=== PATIENT | male | born 1960 | race Caucasian/White ===

== ENCOUNTER 2019-11-21 19:02 | Emergency (ER) | payer BC ==
[~2019-11-21] VITALS: Ht 193 cm; Wt 127.0 kg
--- OUTSIDE RECORDS SUMMARY | ~2019-11-21 | XMS | Clinical Summary ---
Demographics + + + | Address | [address] | | | [place] [address] | + + + | Home Phone | | + + + | Preferred Language | Unknown | + + + | Marital Status | | + + + | Church Affiliation | [employer] | + + + | Race | White | + + + | Ethnic Group | Not or | + + + Author + + + | Author | [facility] | + + + | Organization | [facility] | + + + | Address | Unknown | + + + | Phone | Unavailable | + + + Support + + + + + | Name | Relationship | Address | Phone | + + + + + | Rabia Aguilar | JAMAR | [address] | | | | | [place] | | | | | [phone] | | + + + + + Care Team Providers + +------+ + | Care Branch Store Manager Name | Role | Phone | + +------+ + | Uday Parra MD | PCP | | + +------+ + Source Comments [facility] is fully live on both [facility] Ambulatory and [facility] InPatient[facility] Allergies No Known Allergies Medications + + + +---------+------+------+-------+ | Medication | Sig | Dispensed | Refills | Star | End | Statu | | | | | | t | Date | s | | | | | | Date | | | + + + +---------+------+------+-------+ | hydrALAZINE 50 mg | Take 100 mg by mouth | | 0 | | | Activ | | oral tablet | three times daily. | | | | | e | + + + +---------+------+------+-------+ | atorvastatin 10 mg | Take 10 mg by mouth | | 0 | | | Activ | | oral tablet | once daily. | | | | | e | + + + +---------+------+------+-------+ | aspirin EC 81 mg | Take 81 mg by mouth | | 0 | | | Activ | | oral tablet,delayed | once daily. | | | | | e | | release (DR/EC) | | | | | | | + + + +---------+------+------+-------+ | valsartan 160 mg | Take 320 mg by mouth | | 0 | | | Activ | | oral tablet | once daily. | | | | | e | + + + +---------+------+------+-------+ | spironolactone 50 | Take 50 mg by mouth | | 0 | | | Activ | | mg oral tablet | once daily. | | | | | e | + + + +---------+------+------+-------+ | metoprolol | Take 50 mg by mouth | | 0 | | | Activ | | succinate 50 mg oral | once daily. | | | | | e | | tablet extended | | | | | | | | release 24 hr | | | | | | | + + + +---------+------+------+-------+ | fenofibrate 145 mg | Take 48 mg by mouth | | 0 | | | Activ | | oral tablet | once daily. | | | | | e | + + + +---------+------+------+-------+ | albuterol 90 | Inhale 1-2 puffs | | 0 | | | Activ | | mcg/actuation | every four hours as | | | | | e | | inhalation HFA | needed. | | | | | | | aerosol inhaler | | | | | | | + + + +---------+------+------+-------+ | nitroglycerin 0.4 | Place 0.4 mg under | | 0 | | | Activ | | mg sublingual | tongue every five | | | | | e | | tablet, sublingual | minutes as needed | | | | | | | | for chest pain. | | | | | | | | Place under tongue | | | | | | | | and allow to | | | | | | | | dissolve. | | | | | | | | Administer every 5 | | | | | | | | minutes, max of 3 | | | | | | | | doses in 15 minutes. | | | | | | + + + +---------+------+------+-------+ | mometasone 220 mcg | Inhale 2 puffs two | | 0 | | | Activ | | (14 doses) | times daily. | | | | | e | | inhalation aerosol | | | | | | | | powdr breath | | | | | | | | activated | | | | | | | + + + +---------+------+------+-------+ | amLODIPine 10 mg | Take 10 mg by mouth | | 0 | | | Activ | | oral tablet | once daily. | | | | | e | + + + +---------+------+------+-------+ | | Take 25 mg by mouth | | 0 | | | Activ | | hydrochlorothiazide | once daily. | | | | | e | | 25 mg oral tablet | | | | | | | + + + +---------+------+------+-------+ | acetaminophen 325 | Take 1-2 tablets by | | 0 | 09/0 | | Activ | | mg oral | mouth every four | | | 2/20 | | e | | tabletIndications: | hours as needed. | | | 15 | | | | fever, headache | Indications: FEVER, | | | | | | | disorder | HEADACHE DISORDER | | | | | | + + + +---------+------+------+-------+ | predniSONE 20 mg | Take 2 tablets by | | 0 | 03/2 | | Activ | | oral tablet | mouth once daily. | | | 3/20 | | e | | | | | | 16 | | | + + + +---------+------+------+-------+ Active Problems + + + | Problem | Noted Date | + + + | Coronary artery disease s/p stenting 2014 | 01/01/2015 | + + + | Hyperlipidemia | 01/01/2015 | + + + | Essential hypertension | 01/01/2015 | + + + | CKD (chronic kidney disease), stage III | 01/01/2015 | + + + | Mild persistent asthma | 01/01/2015 | + + + | Pleural effusion | 12/31/2014 | + + + Resolved Problems + + + + | Problem | Noted | Resolved | | | Date | Date | + + + + | Shortness of breath | 01/01/20 | | | | 15 | 5 | + + + + Social History + +-------+ +--------+------+ | Tobacco Use | Types | Packs/Day | Years | Date | | | | | Used | | + +-------+ +--------+------+ | Former Smoker | | | | | + +-------+ +--------+------+ + + +---------+ + | Alcohol Use | Drinks/Week | oz/Week | Comments | + + +---------+ + | No | | | | + + +---------+ + + + + | Sex Assigned at | Date Recorded | | | | + + + | Not on file | | + + + + + + + | Job Start Date | Occupation | Industry | + + + + | Not on file | Not on file | Not on file | + + + + + + + + | Travel History | Travel Start | Travel End | + + + + + + | No recent travel history available. | + + Last Filed Vital Signs + + + + + | Vital Sign | Reading | Time Taken | Comments | + + + + + | Blood Pressure | 138/64 | 07/26/2015 8:28 AM | | | | | PDT | | + + + + + | Pulse | 79 | 07/26/2015 8:28 AM | | | | | PDT | | + + + + + | Temperature | 36.4 C (97.6 F) | 01/08/2015 10:31 AM | | | | | PDT | | + + + + + | Respiratory Rate | 18 | 01/02/2015 2:40 PM | | | | | PDT | | + + + + + | Oxygen Saturation | 96% | 01/08/2015 10:31 AM | | | | | PDT | | + + + + + | Inhaled Oxygen | - | - | | | Concentration | | | | + + + + + | Weight | 137.9 kg (304 lb) | 07/26/2015 8:28 AM | | | | | PDT | | + + + + + | Height | 191 cm (6' 3.2") | 07/26/2015 8:28 AM | | | | | PDT | | + + + + + | Body Mass Index | 37.8 | 07/26/2015 8:28 AM | | | | | PDT | | + + + + + Plan of Treatment + + + + + | Health Maintenance | Due Date | Last Done | Comments | + + + + + | Pneumococcal | | | | | vaccination (1 of 3 | 7 | | | | - PCV13) | | | | + + + + + | Influenza (Flu) | | | | | vaccination (#1) | 9 | | | + + + + + Results Not on filefrom Last 3 Months Insurance + +--------+ +--------+ + +------+ | Payer | Benefi | Subscriber | Effect | Phone | Address | Type | | | t Plan | ID | julieta | | | | | | / | | Dates | | | | | | Group | | | | | | + +--------+ +--------+ + +------+ | [employer] BLUE | [employer]BS | [phone] | 05/03/19 | [phone] | [address] | PPO | | SHIELD | OUT OF | [phone] | [phone] | [phone] | [phone] | | | | STATE | | sent | | [place], | | | | | | | | [place] | | | | | | | | [id number] | | + +--------+ +--------+ + +------+ + +--------+ +--------+ + + | Guarantor Name | Accoun | Relation to | Date | Phone | Billing Address | | | t Type | Patient | of | | | | | | | | | | + +--------+ +--------+ + + | Geoffrey Aguilar W | Person | Self [birth year] [address] | | | al/Fam | | 1961 | [phone] | [id number] | | | jordan | | | 8 (Home) | | | | | | | [phone] | | | | | | | 0 (Work) | | + +--------+ +--------+ + + Advance Directives + + + + + | Code Status | Date | Date | Comments | | | Activated | Inactivated | | + + + + + | Full Code | 01/01/2015 | 01/03/2015 | | | | 1:05 AM | 12:45 AM | | + + + + +
--- OUTSIDE RECORDS SUMMARY | ~2019-11-21 | XMS | Encounter Summary ---
Demographics + + + | Address | [address] | | | [place] [address] | + + + | Home Phone | | + + + | Preferred Language | Unknown | + + + | Marital Status | | + + + | Hinduism Affiliation | CHR | + + + | Race | White | + + + | Ethnic Group | Not or | + + + Author + + + | Author | [facility] | + + + | Organization | [facility] | + + + | Address | Unknown | + + + | Phone | Unavailable | + + + Support + + + + + | Name | Relationship | Address | Phone | + + + + + | Rabia Bahena | ECON | [address] | | | | | [place] | | | | | [address] | | + + + + + Care Team Providers + +------+ + | Care Director Data Analytics Name | Role | Phone | + +------+ + | Uday Parra MD | PCP | | + +------+ + Reason for Visit + + + | Reason | Comments | + + + | Cephalgia | | + + + | Nausea | | + + + | Chest pain | | + + + | Referral | | + + + AUTH/CERT +--------+--------+ + + + + | Status | Reason | Specialty | Diagnoses / | Referred By | Referred To | | | | | Procedures | Contact | Contact | +--------+--------+ + + + + | Closed | | | | | | +--------+--------+ + + + + Encounter Details +--------+ + + + + | Date | Type | Department | Care Team | Description | +--------+ + + + + | 12/31/ | Emergency | [facility] [address] | Mack Ortiz MD | | | 2014 - | | [address] | [address] | | | | | 12/[facility] [place] | [facility] [place], | | | 01/02/ | | [facility] [place], | [place] [address] | | | 2014 | | [place] [address] | [phone] | | | | | [phone] | | | | | | | Bernardo Booth MD | | | | | | [address] | | | | | | [facility] [place], | | | | | | [place] [address] | | | | | | [phone] | | | | | | | | | | | | Edgardo Coleman | | | | | | MD [facility], | | | | | | Nathaniel Mccain MD [address] | | | | | | [facility] | | | | | | Rd [place], [place] | | | | | | [address] | | | | | | [phone] | | | | | | | | +--------+ + + + + Social History + [...] recent travel history available. | + + documented as of this encounter Last Filed Vital Signs + + + + + | Vital Sign | Reading | Time Taken | Comments | + + + + + | Blood Pressure | 158/75 | 01/02/2015 4:14 PM | | | | | PDT | | + + + + + | Pulse | 75 | 01/02/2015 4:14 PM | | | | | PDT | | + + + + + | Temperature | 36.8 C (98.2 F) | 01/02/2015 2:40 PM | | | | | PDT | | + + + + + | Respiratory Rate | 18 | 01/02/2015 2:40 PM | | | | | PDT | | + + + + + | Oxygen Saturation | 97% | 01/02/2015 2:40 PM | | | | | PDT | | + + + + + | Inhaled Oxygen | - | - | | | Concentration | | | | + + + + + | Weight | 131.7 kg (290 lb 5.5 | 01/01/2015 1:05 AM | | | | oz) | PDT | | + + + + + | Height | 193 cm (6' 3.98") | 01/01/2015 1:05 AM | | | | | PDT | | + + + + + | Body Mass Index | 35.36 | 01/01/2015 1:05 AM | | | | | PDT | | + + + + + documented in this encounter Discharge Summaries Luis Snyder PA-C - 01/02/2015 5:35 PM PDTFormatting of this note might be different f rom the original. INPATIENT PHYSICIAN DISCHARGE SUMMARY Clinical Hospitalist Service Discharging Provider: LUIS SNYDER PA-C Attending Physician: Nathaniel Jovel MD Hospital Stay: 2 day(s) PCP: Uday Parra MD Admission Date: 12/31/2014 Discharge Date: 01/02/2015 Principal Diagnosis: 1) *Pleural effusion Additional diagnoses: 2) Coronary artery disease s/p stenting 2014 3) Hyperlipidemia 4) Essential hypertension 5) CKD (chronic kidney disease), stage III 6) Mild persistent asthma 7) Headache 8) Subjective fevers 9) Leukocytosis Procedures & studies: CT head wo contrast: No evidence of acute hemorrhage, herniation, or hydrocephalus CTA chest: No pulmonary embolism. Small layering left pleural effusion with minimal adjacent atelectasis. Lungs otherwise zahraa ar. US chest:Sonographic imaging demonstrates a very small left-sided pleural effusion too small for safe thoracentesis. Venous duplex LE bilateral: no DVTs Reason for Admission: Fever, headache, pleural effusion Hospital course: Mr. Bahena is a 54 yo man with CAD s/p stenting early 2014, HLD, HTN and recent left upper l obe pneumonia 10/2014 who presented with 2 months of intermittent low grade fever (99-101.1), pleuritic left-sided chest pain, fatigue and headache. He has undergone unremarkable work- up with his primary care doctor (Dr. Parra) including multiple rounds of antibiotics, TTE, blood cultures, serum CRAG, AFB sputum. He had known left-sided pleural effusion since his pneumonia episode but has never had thoracentesis. His PCP checked serial D dimer levels whi ch were mildly elevated. He had another temperature > 100 F last night and called his PCP wh o recommended he drive to [facility] ER from [place] due to lack of treatment options in locally . Subjective fevers, leukocytosis, small L-sided pleural effusion, headache: Illness starting with ROCCO community acquired pneumonia in October, which was treated with leva jerrod and again with a second round of bactrim in Dec as he continued to feel ill (fatigue, l ow-grade fevers, deconditioning, headache). On admission his WBC was elevated to 13K but resolved to 8 the following morning without in tervention. He remained afebrile. Work up included CTA (negative for PE, positive for small effusion too small to tap), CT head (normal), LE dopplers (negative) and blood cultures that are NGTD. Suspicion for rheumatologic etiology was low without corresponding symptoms. Susp ect his underlying fatigue and malaise are related to the residual pleural effusion. Recomme nded pt follow up with Dr. Rivera if he spikes a fever above 100.4 at rest (other temps at home were taken during exertion). - will call pt if blood cultures return positive - f/u with Dr. Rivera if he continues to fever CAD: No evidence of acute ischemia. With stent placement last Apr. Left-sided pain is atypi kosta, not worse on exertion. Trop in ER negative. -Cont ASA 81mg, atorvastatin 10mg daily, Tension headache: low risk for meningitis given types of symptoms, no meningismus. CT unrem arkable -continue prn acetaminophen. CKD stage III: At prior baseline per patient. Likely elevated by recent course of bactrim ( stopped this on Sun) HTN: well-controlled, but does require 5 medications -cont amlodipine 10mg daily, hydralazine 100mg TID, metop 50mg daily, spironolactone 50mg d aily, valsartain 50mg daily Hyperlipidemia: continue statin and fenofibrate. REGINA on CPAP: Cont home CPAP. Vital Signs at Discharge: Ht 1.93 m (6' 3.98"), Wt 131.7 kg (290 lb 5.5 oz), BP 158/75, Pu lse 75, Temperature 36.8 C (98.2 F), RR 18, SpO2 97%, BMI 35.36 kg/(m^2). PHYSICAL EXAMINATION: General Appearance: obese man, no distress, flat affect Respiratory: Unlabored breathing. CTAB Cardiovascular: RRR without M/R/G Gastrointestinal: soft, BS normal, nontender Extremities: wwp, no edema Current Discharge Medication List START taking these medications Details acetaminophen 325 mg oral tablet Take 1-2 tablets by mouth every four hours as needed. Barbara cations: FEVER, HEADACHE DISORDER CONTINUE these medications which have NOT CHANGED Details albuterol 90 mcg/actuation inhalation HFA aerosol inhaler Inhale 1-2 puffs every four hours as needed. amLODIPine 10 mg oral tablet Take 10 mg by mouth once daily. aspirin EC 81 mg oral tablet,delayed release (DR/EC) Take 81 mg by mouth once daily. atorvastatin 10 mg oral tablet Take 10 mg by mouth once daily. clopidogrel 75 mg oral tablet Take 75 mg by mouth once daily. fenofibrate 145 mg oral tablet Take 48 mg by mouth once daily. hydrALAZINE 50 mg oral tablet Take 100 mg by mouth three times daily. hydrochlorothiazide 25 mg oral tablet Take 25 mg by mouth once daily. metoprolol succinate 50 mg oral tablet extended release 24 hr Take 50 mg by mouth once althea y. mometasone 220 mcg (14 doses) inhalation aerosol powdr breath activated Inhale 2 puffs two times daily. nitroglycerin 0.4 mg sublingual tablet, sublingual Place 0.4 mg under tongue every five min utes as needed for chest pain. Place under tongue and allow to dissolve. Administer every 5 minutes, max of 3 doses in 15 minutes. spironolactone 50 mg oral tablet Take 50 mg by mouth once daily. valsartan 160 mg oral tablet Take 320 mg by mouth once daily. Diet Regular Regular diet- There are no restrictions to your diet. You may eat or drink whatever you pr efer, though healthy food choices are recommended. Activity No activity restrictions Destination: Destination: Home Condition on Discharge Stable Schedule the following appointment(s) when you get home Follow up with UDAY PARRA MD. Specialty: Family Medicine Why: As needed Contact information [facility] [address] [place] [address] [place] [address] Who To Call For Problems HOW TO REACH YOUR MEDICINE TEAM WITH QUESTIONS, CONCERNS, OR NEW SYMPTOMS: Thank you for entrusting your care to [facility] Internal Medicine. If you have any problems or concerns before you are able to follow up with your Primary Care Provider, please call and ask the offset second press operator to page the attending physician who was caring for you at dis charge (this will be listed in your AfterVisit Summary). If that physician is not availabl e, ask the offset second press operator to page the physician chronic care nurse for the Clinical Hospitalist Service. Outstanding labs/studies: blood cultures Discharge Summary Completed on: 01/02/2015 Discharging Provider: Luis Snyder PA-C Discharging Attending: MD Luis Quiles PA-C Clinical Hospitalist Service Clinical Instructor Division of Hospital Medicine Department of Medicine [address] [place] [address] I spent 46 minutes coordinating care for this patient's discharge, of which 25 minutes were spent [id number] with patient and/or surrogate for counseling and discussing discharge tr eatment plan regarding fevers, pleural effusion, headache and follow up plan. CC to: Primary Care Physician Uday Parra MD [facility] [address] [place] [address] documented in this encounter Discharge Instructions Instructions Ewa Cabrera RN - 01/02/2015Patient Education Materials: see above Additional Instructions: none Discharge Nurse: EWA CABRERA RN Date: 01/02/2015 Discharge Time: 4:09 PM documented in this encounter Medications at Time of Discharge + + + +---------+ + + | Medication | Sig | Dispensed | Refills | Start | End Date | | | | | | Date | | + + + +---------+ + + | acetaminophen 325 | Take 1-2 tablets by | | 0 | 01/03/20 | | | mg oral | mouth every four | | | 15 | | | tabletIndications: | hours as needed. | | | | | | fever, headache | Indications: FEVER, | | | | | | disorder | HEADACHE DISORDER | | | | | + + + +---------+ + + | albuterol 90 | Inhale 1-2 puffs | | 0 | | | | mcg/actuation | every four hours as | | | | | | inhalation HFA | needed. | | | | | | aerosol inhaler | | | | | | + + + +---------+ + + | amLODIPine 10 mg | Take 10 mg by mouth | | 0 | | | | oral tablet | once daily. | | | | | + + + +---------+ + + | aspirin EC 81 mg | Take 81 mg by mouth | | 0 | | | | oral tablet,delayed | once daily. | | | | | | release (DR/EC) | | | | | | + + + +---------+ + + | atorvastatin 10 mg | Take 10 mg by mouth | | 0 | | | | oral tablet | once daily. | | | | | + + + +---------+ + + | fenofibrate 145 mg | Take 48 mg by mouth | | 0 | | | | oral tablet | once daily. | | | | | + + + +---------+ + + | hydrALAZINE 50 mg | Take 100 mg by mouth | | 0 | | | | oral tablet | three times daily. | | | | | + + + +---------+ + + | | Take 25 mg by mouth | | 0 | | | | hydrochlorothiazide | once daily. | | | | | | 25 mg oral tablet | | | | | | + + + +---------+ + + | metoprolol | Take 50 mg by mouth | | 0 | | | | succinate 50 mg oral | once daily. | | | | | | tablet extended | | | | | | | release 24 hr | | | | | | + + + +---------+ + + | mometasone 220 mcg | Inhale 2 puffs two | | 0 | | | | (14 doses) | times daily. | | | | | | inhalation aerosol | | | | | | | powdr breath | | | | | | | activated | | | | | | + + + +---------+ + + | nitroglycerin 0.4 | Place 0.4 mg under | | 0 | | | | mg sublingual | tongue every five | | | | | | tablet, sublingual | minutes as [...] 15 minutes. | | | | | + + + +---------+ + + | spironolactone 50 | Take 50 mg by mouth | | 0 | | | | mg oral tablet | once daily. | | | | | + + + +---------+ + + | valsartan 160 mg | Take 320 mg by mouth | | 0 | | | | oral tablet | once daily. | | | | | + + + +---------+ + + documented as of this encounter Progress Notes Luis Snyder PA-C - 01/04/2015 3:53 PM PDT01/03/15 - one of two blood cultures returned positive for coag neg staph. Called pt's to report results. Could be contamination, but could be true bacteremia (e ndocarditis?) given subacute symptoms. She and pt just arrived home in [place] and it was after 5pm. Pt did not have any fevers since discharge or and focal infectious signs, however she believes he is not doing well. Recommended she call Dr. Parra first thing in the morning to get orders for a repeat set of blood cultures x 2. If any more cultures return positive, recommended that Geoffrey return to [facility] (she did not want to go to local ER or hospital). In meantime, recommended that she make a follow up appt with Dr. Rivera for Geoffrey as she is very worried something is wrong and we have discovered the source yet. Luis Snyder PA-C Clinical Hospitalist Service 3: 58 PM Gypsy, Caitlin Mccain PA-C - 01/01/2015 7:34 AM PDT INPATIENT PROGRESS NOTE CLINICAL HOSPITALIST SERVICE Hospital Day:1 Author; CAITLIN GOLDSTEIN PA-C Attending Physician: Nathaniel Jovel MD Interval Hx: Admitted last night for further work-up of fevers, L-sided chest pain and pers istent pleural effusion. VSS overnight, no fevers. Subj: Feels "ok" this morning, headache better, no fevers/chills, still with L-sided chest pain and BENTLEY Physical Exam: Last Vitals: BP 135/58 | Pulse 66 | Temp 36.5 C (97.7 F) | RR 18 | Ht 1.93 m (6' 3.98") | Wt 131.7 kg (290 lb 5.5 oz) | SpO2 96% | BMI 35.36 kg/(m^2) O2 Delivery Device: None (room air) (01/01/15 0634) 24 Hour Vital Min/Max: Systolic (24hrs), Av mmHg, Min:121 mmHg, Max:149 mmHgDiastolic (24hrs), Av mmHg, M in:55 mmHg, Max:76 mmHgPulse Min: 58 Max: 75 Temp Min: 36.2 C (97.2 F) Max: 37.2 C (99 F) Resp Min: 13 Max: 19 SpO2 Min: 95 % Max: 98 % Intake/Output Summary (Last 24 hours) at 01/01/15 0932 Last data filed at 01/01/15 0800 Gross per 24 hour Intake 310 ml Output 400 ml Net -90 ml General Appearance: Alert and interactive obese adult male in NAD HEENT: NCAT, PERRL, sclerae anicteric, mucosa moist Neck: Supple, no LAD =, no JVD Respiratory: On RA Even and unlabored, dim to L-base otherwise CTAB Cardiovascular: RRR, no m/r/g Gastrointestinal: Soft, NT, ND, BS+ Musculoskeletal: WWP, no edema Skin: No rashes or lesions Neurologic: A&Ox4, Non-focal Psychiatric: Affect baseline Labs: Notable for Chemistries: Last 72 Hours (or 3 results): Recent Labs 12/31/14 1506 01/01/15 0628 NA 138 139 K 4.5 4.3 CL 109* 109* BICARB 21 21 BUN 26* 31* CR 1.49* 1.56* GLU 133* 90 CA 9.5 8.8 CBC with diff last 72 hours (or 3 results) Recent Labs 12/31/14 1506 01/01/15 0628 WBC 13.35* 9.39 HB 12.9* 11.0* HCT 39.0* 33.6* PLT 372 292 NEUTROPERC 64.2 -- LYMPHPERC 20.6 -- MONOPERC 9.3* -- BASOPERC 0.7 -- EOSPERC 4.6* -- Imaging: CTA chest 12/31/14 No pulmonary embolism. Small layering left pleural effusion with minimal adjacent atelectasis. Lungs otherwise clear. Head CT 12/31/14 No evidence of acute hemorrhage, herniation, or hydrocephalus. Small left pleural effusion. In the setting of fever, this is favored to be a parapneumonic effusion related to current/recent pneumonia. Other potential etiologies for a unilateral pleural effusion include trauma, malignancy, pancreatitis or hepatic cirrhosis with portal hypertension. Assessment and Plan: Geoffrey Bahena is a 54 yo man with CAD, HTN, HLD, recent ROCCO pneumonia admitted for evaluatio n of recurrent low grade fever in setting of persistent unilateral pleural effusion. Subjective fevers, leukocytosis, small L-sided pleural effusion: Illness starting with what sounds like ROCCO CAP in October, treated with levaquin for 6 days, blood cultures negative exce pt one that grew S hominis in 1 bottle thought to be a contaminent . Pt endorses feeling poo rly since that hospital stay with perisistant fatigue, low-grade fevers, CORNELL, BENTLEY. His work-u p by his PCP involved CT on 12/14/14 with reported unresolved ROCCO PNA and pleural effusion as well as treatment for "ear infection" with Septra DS, per pt he just finished this last Wed day. PCP notes concerned about elevated d-dimer but no CTA done, BNP unremarkable. 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 PCP had discussion with Dr. Rivera who recommend ed serum CRAG (negative), blood cultures and sputum for AFB (results of this not documented) . His labs were notable for persistent mild leukocytosis to 12K No fevers since admission, he did have WBC to 13K in the ED but it has since normalized. 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 Will attempt to get a s ample of this pleural fluid today, will potentially involve ID though pt could potentially c omplete work-up for FUO as outpt (had outpt ID referral) -US guided thoracentesis today by radiology (too small to attempt at bedside -CBC daily -Repeat blood cultures if febrile, will send one set today -ID consult tomorrow, likely outpatient work-up CAD: No evidence of acute ischemia. With stent placement last Apr. Left-sided pain is atypi kosta, not worse on exertion. Trop in ER negative. -Cont ASA 81mg, atorvastatin 10mg daily, Tension headache: low risk for meningitis given types of symptoms, no meningismus. CT unre markable -continue prn acetaminophen. ?DANIEL on CKD stage III: At prior baseline per patient. Likely elevated by recent course of b actrim (stopped this on Sun) -BMP daily HTN: well-controlled. -cont amlodipine 10mg daily, hydralazine 100mg TID, metop 50mg daily, spironolactone 50mg d aily, valsartain 50mg daily Hyperlipidemia: continue statin and fenofibrate. REGINA on CPAP: Cont home CPAP. FEN: Regular VTE: lovenox CODE: FULL Family: at bedside PCP: will update on DC DISPO: Pending plan for further work-up of possible FUO, potentially medically stable to DC and complete work-up as outpt Caitlin Goldstein PA-C #[id number] Attending: Can Jovel MD Clinical Hospitalist Service eyKathrin linda - 12/31/2014 10:49 PM PDTPatient Name: GEOFFREY BAHENA Date of : 1960 CASE MANAGEMENT PROGRESS NOTE UPDATED DISCHARGE PLANNING INFORMATION * Notes: Chart reviewed for otero placement Electronically signed by:Kathrin Montague Position:General Store Manager Pager ID:[phone] Electronically signed on:[id number] signed by Kathrin Montague at 10:49 PM PDTdocumented in this encounter Plan of Treatment Not on filedocumented as of this encounter Procedures + +--------+ + + + | Procedure Name | Priori | Date/Time | Associated Diagnosis | Comments | | | ty | | | | + +--------+ + + + | VASC LAB PORTABLE | Routin | 01/02/2015 | | Results for this | | VENOUS DUPLEX LOWER | e | 4:12 PM | | procedure are in the | | EXTREMITY BILATERAL | | PDT | | results section. | | COMPLETE | | | | | + +--------+ + + + | CBC (HEMOGRAM) ONLY | Routin | 01/02/2015 | | Results for this | | | e | 5:34 AM | | procedure are in the | | | | PDT | | results section. | + +--------+ + + + | BASIC METABOLIC SET | Routin | 01/02/2015 | | Results for this | | (NA, K, CL, TCO2, | e | 5:34 AM | | procedure are in the | | BUN, CR, GLU, CA) | | PDT | | results section. | + +--------+ + + + | CBC ONLY | Routin | 01/02/2015 | | Results for this | | | e | 5:34 AM | | procedure are in the | | | | PDT | | results section. | + +--------+ + + + | CAPILLARY BLOOD | Routin | 01/01/2015 | Pleural effusion | Results for this | | GLUCOSE (NO CHG), | e | 8:50 PM | | procedure are in the | | POC | | PDT | | results section. | + +--------+ + + + | CULTURE, BLOOD BACTI | Routin | 01/01/2015 | | Results for this | | & YEAST [facility] | e | 6:22 PM | | procedure are in the | | | | PDT | | results section. | + +--------+ + + + | BLOOD CULTURE WORKUP | Routin | 01/01/2015 | | Results for this | | | e | 6:22 PM | | procedure are in the | | | | PDT | | results section. | + +--------+ + + + | CULTURE, BLOOD BACTI | Routin | 01/01/2015 | | Results for this | | & YEAST | e | 6:22 PM | | procedure are in the | | | | PDT | | results section. | + +--------+ + + + | CULTURE, BLOOD BACTI | Routin | 01/01/2015 | | Results for this | | & YEAST [facility] | e | 6:21 PM | | procedure are in the | | | | PDT | | results section. | + +--------+ + + + | CULTURE, BLOOD BACTI | Routin | 01/01/2015 | | Results for this | | & YEAST | e | 6:21 PM | | procedure are in the | | | | PDT | | results section. | + +--------+ + + + | US CHEST | Routin | 01/01/2015 | | Results for this | | | e | 2:41 PM | | procedure are in the | | | | PDT | | results section. | + +--------+ + + + | CBC (HEMOGRAM) ONLY | Routin | 01/01/2015 | | Results for this | | | e | 6:28 AM | | procedure are in the | | | | PDT | | results section. | + +--------+ + + + | BASIC METABOLIC SET | Routin | 01/01/2015 | | Results for this | | (NA, K, CL, TCO2, | e | 6:28 AM | | procedure are in the | | BUN, CR, GLU, CA) | | PDT | | results section. | + +--------+ + + + | CBC ONLY | Routin | 01/01/2015 | | Results for this | | | e | 6:28 AM | | procedure are in the | | | | PDT | | results section. | + +--------+ + + + | CTA CHEST PULMONARY | Urgent | 01/01/2015 | | Results for this | | EMBOLISM W CONTRAST | | 12:48 AM | | procedure are in the | | | | PDT | | results section. | + +--------+ + + + | CT HEAD WO CONTRAST | Urgent | 12/31/2014 | | Results for this | | | | 8:57 PM | | procedure are in the | | | | PDT | | results section. | + +--------+ + + + | OCCULT BLOOD,FECAL - | Urgent | 12/31/2014 | | Results for this | | POC IP ONLY | | 7:39 PM | | procedure are in the | | | | PDT | | results section. | + +--------+ + + + | TROPONIN, POC | Urgent | 12/31/2014 | | Results for this | | | | 5:22 PM | | procedure are in the | | | | PDT | | results section. | + +--------+ + + + | RAINBOW HOLD TUBE - | Urgent | 12/31/2014 | | | | RED TOP | | 5:19 PM | | | | | | PDT | | | + +--------+ + + + | RAINBOW HOLD TUBE - | Urgent | 12/31/2014 | | | | BLUE TOP | | 5:19 PM | | | | | | PDT | | | + +--------+ + + + | RAINBOW HOLD, CORE | Urgent | 12/31/2014 | | Results for this | | PANEL | | 5:19 PM | | procedure are in the | | | | PDT | | results section. | + +--------+ + + + | BLOOD BANK HOLD TUBE | Urgent | 12/31/2014 | | Results for this | | - DON | | 5:19 PM | | procedure are in the | | | | PDT | | results section. | | T PROCESS | | | | | + +--------+ + + + | X-RAY CHEST 2 VIEW | Urgent | 12/31/2014 | | Results for this | | | | 4:10 PM | | procedure are in the | | | | PDT | | results section. | + +--------+ + + + | CBC AND AUTO DIFF | Urgent | 12/31/2014 | | Results for this | | | | 3:06 PM | | procedure are in the | | | | PDT | | results section. | + +--------+ + + + | CBC, WITH | Urgent | 12/31/2014 | | Results for this | | DIFFERENTIAL | | 3:06 PM | | procedure are in the | | | | PDT | | results section. | + +--------+ + + + | COMPLETE METABOLIC | Urgent | 12/31/2014 | | Results for this | | SET | | 3:06 PM | | procedure are in the | | (NA,K,CL,CO2,BUN,CRE | | PDT | | results section. | | AT,GLUC,CA,AST,ALT,B | | | | | | RICHY TOTAL,ALK | | | | | | PHOS,ALB,PROT TOTAL) | | | | | + +--------+ + + + | C-REACTIVE PROTEIN | Urgent | 12/31/2014 | | Results for this | | | | 3:06 PM | | procedure are in the | | | | PDT | | results section. | + +--------+ + + + | SEDIMENTATION RATE | Urgent | 12/31/2014 | | Results for this | | | | 3:06 PM | | procedure are in the | | | | PDT | | results section. | + +--------+ + + + | 12 LEAD ECG | Routin | 12/31/2014 | | Results for this | | | e | 2:07 PM | | procedure are in the | | | | PDT | | results section. | + +--------+ + + + | ORDERS OTHER | | 12/31/2014 | | Results for this | | | | 12:00 AM | | procedure are in the | | | | PDT | | results section. | + +--------+ + + + documented in this encounter Results VAS LAB PORTABLE VENOUS DUPLEX LOWER EXTREMITY BILATERAL COMPLETE (01/02/2015 4:12 PM PDT ) + + + + + + | Component | Value | Ref Range | Performed | Pathologist | | | | | At | Signature | + + + + + + | VASC LAB | Bilateral: The duplex | | | | | PORTABLE | scanner was used to | | | | | VENOUS | examine the deep and | | | | | DUPLEX | superficialveins of the | | | | | LOWER | right and left lower | | | | | EXTREMITY | extremities.The veins | | | | | BILATERAL | are patent | | | | | COMPLETE | bilaterallywith normal | | | | | | flows and responses to | | | | | | augmentation and | | | | | | compression maneuvers | | | | | | andno thrombus is noted. | | | | | | Conclusions: A normal | | | | | | venous examination of | | | | | | the bilateral lower | | | | | | extremities. Novenous | | | | | | thrombosis was detected. | | | | | | Attending | | | | | | Radiologists: HAMIDA | | | | | | MARY KASPERuthor: | | | | | | HAMIDA KASPER MD I | | | | | | have personally viewed | | | | | | this procedure/exam, | | | | | | reviewed this report, | | | | | | and madechanges to it | | | | | | where appropriate. | | | | | | Final/Electronically | | | | | | signed / HAMIDA | | | | | | MAJO 01/02/2015 18:25 | | | | | | PM | | | | + + + + + + + + | Specimen | + + | | + + + +---------+ + + | Performing | Address | City/State/Zipcode | Phone Number | | Organization | | | | + +---------+ + + | [facility] DEPARTMENT OF | | | | | RADIOLOGY | | | | + +---------+ + + CBC (HEMOGRAM) ONLY (01/02/2015 5:34 AM PDT) + + + + + + | Component | Value | Ref Range | Performed | Pathologist | | | | | At | Signature | + + + + + + | WHITE CELL | 8.35 | 4.40 - 11.00 | [facility] | | | COUNT | | K/cu mm | LABORATORY | | | | | | SERVICES, | | | | | | CORE | | + + + + + + | RED CELL | 3.71 (L) | 4.50 - 6.00 | [facility] | | | COUNT | | M/cu mm | LABORATORY | | | | | | SERVICES, | | | | | | CORE | | + + + + + + | HEMOGLOBIN | 10.7 (L) | 13.5 - 17.5 | [facility] | | | | | g/dL | LABORATORY | | | | | | SERVICES, | | | | | | CORE | | + + + + + + | HEMATOCRIT | 33.6 (L) | 41.0 - 53.0 % | [facility] | | | | | | LABORATORY | | | | | | SERVICES, | | | | | | CORE | | + + + + + + | MCV | 90.6 | 80.0 - 96.0 fL | [facility] | | | | | | LABORATORY | | | | | | SERVICES, | | | | | | CORE | | + + + + + + | MCHC | 31.8 | 33.0 - 35.5 | [facility] | | | | | g/dL | LABORATORY | | | | | | SERVICES, | | | | | | CORE | | + + + + + + | RDW SD | 43.7 | 35.1 - 46.3 fL | [facility] | | | | | | LABORATORY | | | | | | SERVICES, | | | | | | CORE | | + + + + + + | PLATELET | 292 | 150 - 400 K/cu | [facility] | | | COUNT | | mm | LABORATORY | | | | | | SERVICES, | | | | | | CORE | | + + + + + + | MPV | 10.4 | 9.7 - 12.3 fL | [facility] | | | | | | LABORATORY | | | | | | SERVICES, | | | | | | CORE | | + + + + + + | NRBC% | 0.0 | 0.0 - 0.3 % | [facility] | | | | | | LABORATORY | | | | | | SERVICES, | | | | | | CORE | | + + + + + + | NRBC# | 0.00 | 0.00 - 0.02 | [facility] | | | | | K/cu mm | LABORATORY | | | | | | SERVICES, | | | | | | CORE | | + + + + + + + + | Specimen | + + | Blood | + + + + + + + | Performing | Address | City/State/Zipcode | Phone Number | | Organization | | | | + + + + + | [facility] | [address] | [place] [address] | | | SERVICES, CORE | [address] | | | + + + + + BASIC METABOLIC SET (NA, K, CL, TCO2, BUN, CR, GLU, CA) (01/02/2015 5:34 AM PDT) + + + + + + | Component | Value | Ref Range | Performed | Pathologist | | | | | At | Signature | + + + + + + | GLUCOSE, | 111 (H) | 60 - 99 mg/dL | [facility] | | | PLASMA | | | LABORATORY | | | (LAB) | | | SERVICES, | | | | | | CORE | | + + + + + + | BUN, PLASMA | 29 (H) | 6 - 20 mg/dL | [facility] | | | (LAB) | | | LABORATORY | | | | | | SERVICES, | | | | | | CORE | | + + + + + + | CREATININE | 1.51 (H) | 0.70 - 1.30 | [facility] | | | PLASMA | | mg/dL | LABORATORY | | | (LAB) | | | SERVICES, | | | | | | CORE | | + + + + + + | EGFR | 59 (L) | >60 mL/min | [facility] | | | - | | | LABORATORY | | | [facility]O TOMEAN | | | SERVICES, | | | | | | CORE | | + + + + + + | EGFR NON | 48 (L) | >60 mL/min | [facility] | | | -CARLOS | | | LABORATORY | | | RICAN | | | SERVICES, | | | | | | CORE | | + + + + + + | SODIUM, | 141 | 136 - 145 | [facility] | | | PLASMA | | mmol/L | LABORATORY | | | (LAB) | | | SERVICES, | | | | | | CORE | | + + + + + + | POTASSIUM, | 4.2 | 3.4 - 5.0 | [facility] | | | PLASMA | | mmol/L | LABORATORY | | | (LAB) | | | SERVICES, | | | | | | CORE | | + + + + + + | CHLORIDE, | 109 (H) | 97 - 108 mmol/L | [facility] | | | PLASMA | | | LABORATORY | | | (LAB) | | | SERVICES, | | | | | | CORE | | + + + + + + | TOTAL CO2, | 22 | 21 - 32 mmol/L | [facility] | | | PLASMA | | | LABORATORY | | | (LAB) | | | SERVICES, | | | | | | CORE | | + + + + + + | CALCIUM, | 8.9 | 8.6 - 10.2 | [facility] | | | PLASMA | | mg/dL | LABORATORY | | | (LAB) | | | SERVICES, | | | | | | CORE | | + + + + + + | ANION GAP | 10 | mmol/L | [facility] | | | | | | LABORATORY | | | | | | SERVICES, | | | | | | CORE | | + + + + + + | POTASSIUM | No Hemo | | [facility] | | | CMNT | | | LABORATORY | | | | | | SERVICES, | | | | | | CORE | | + + + + + + + + | Specimen | + + | Blood | + + + + + | Narrative | Performed At | + + + | GFR is estimated using the MDRD equation recommended by the | [facility] | | National Kidney Disease Education Program. Estimated GFR | LABORATORY | | Interpretive Information: <60 mL/min/1.73 sq m | SERVICES, CORE | | Chronic Kidney Disease <15 mL/min/1.73 sq m | | | Kidney Failure Estimated GFR greater that 60 mL/min/1.73 sq m is of | | | limited clinical value. The MDRD equation is not valid in the | | | following situations: - Patients under 18 years of age - Severe | | | malnutrition or obesity - Vegetarian diet - Rapidly changing kidney | | | function | | + + + + + + + + | Performing | Address | City/State/Zipcode | Phone Number | | Organization | | | | + + + + + | [facility] | [address] | [place] [address] | | | SERVICES, CORE | [address] | | | + + + + + CAPILLARY BLOOD GLUCOSE (NO CHG), POC (01/01/2015 8:50 PM PDT) + +---------+ + + + | Component | Value | Ref Range | Performed | Pathologist | | | | | At | Signature | + +---------+ + + + | BLOOD | 118 (H) | 60 - 99 mg/dL | [facility] - | | | GLUCOSE, | | | [facility] | | | POC | | | [facility] | | | | | | OF CARE | | | | | | TESTS | | + +---------+ + + + + + | Specimen | + + | | + + + + + + + | Performing | Address | City/State/Zipcode | Phone Number | | Organization | | | | + + + + + | [facility] | [address] | [place], [place] | | | [facility] | [address] | [address] | | | TESTS | | | | + + + + + BLOOD CULTURE WORKUP (01/01/2015 6:22 PM PDT) + + + + + + | Component | Value | Ref Range | Performed | Pathologist | | | | | At | Signature | + + + + + + | CULTURE | Coagulase negative | | [facility] | | | RESULT | staphylococcus species | | [facility] - | | | | (A) | | [place] | | + + + + + + + + | Specimen | + + | Blood - Arm - right | + + + + + | Narrative | Performed At | + + + | Culture Report: Coagulase negative Staphylococcus species Growth | [facility] - | | in Anaerobic bottle | [facility] - | | | [place] | + + + + + + + + | Performing | Address | City/State/Zipcode | Phone Number | | Organization | | | | + + + + + | [facility] | [address] | [place] [address] | | | [place] | | | | + + + + + CULTURE, BLOOD BACTI & YEAST [facility] (01/01/2015 6:22 PM PDT) + + + + + + | Component | Value | Ref Range | Performed | Pathologist | | | | | At | Signature | + + + + + + | CULTURE | Coagulase negative | | [facility] | | | RESULT | staphylococcus species | | LABORATORY | | | | (AA) | | SERVICES, | | | | | | CORE | | + + + + + + | GRAM STAIN | Gram positive cocci in | | [facility] | | | | clusters | | LABORATORY | | | | | | SERVICES, | | | | | | CORE | | + + + + + + + + | Specimen | + + | Blood - Entire right | | upper arm (body | | structure) | + + + + + | Narrative | Performed At | + + + | Growth in Anaerobic Bottle. Organism Identified by Molecular | [facility] | | ID, to be confirmed by culture. | LABORATORY | | | [facility]AN[facility] | + + + + + + + + | Performing | Address | City/State/Zipcode | Phone Number | | Organization | | | | + + + + + | [facility] | [address] | [place] [address] | | | RANDA K[facility] | [address] | | | + + + + + CULTURE, BLOOD BACTI & YEAST [facility] (01/01/2015 6:21 PM PDT) + + + + + + | Component | Value | Ref Range | Performed | Pathologist | | | | | At | Signature | + + + + + + | CULTURE | Final Report:No Bacteria | | [facility] | | | RESULT | or Yeast isolated at 5 | | LABORATORY | | | | days. | | SERVICES, | | | | | | CORE | | + + + + + + + + | Specimen | + + | Blood - Entire left | | upper arm (body | | structure) | + + + + + + + | Performing | Address | City/State/Zipcode | Phone Number | | Organization | | | | + + + + + | [facility] | [address] | [place] [address] | | | SERVICES, CORE | [address] | | | + + + + + US CHEST (01/01/2015 2:41 PM PDT) + + + + + + | Component | Value | Ref Range | Performed | Pathologist | | | | | At | Signature | + + + + + + | US CHEST | STUDY: Ultrasound chest | | | | | | HISTORY: Recurrent | | | | | | fevers and leukocytosis, | | | | | | concern for infected | | | | | | pleuraleffusion | | | | | | COMPARISON: none | | | | | | FINDINGS: Sonographic | | | | | | imaging demonstrates a | | | | | | very small left-sided | | | | | | pleuraleffusion too | | | | | | small for safe | | | | | | thoracentesis. | | | | | | IMPRESSION: 1. Very | | | | | | small left-sided pleural | | | | | | effusion. Attending | | | | | | Radiologists: GENET | | | | | | MARY GARCIAuthor: GENET | | | | | | MD JOSE I have | | | | | | personally viewed this | | | | | | procedure/exam, reviewed | | | | | | this report, and | | | | | | madechanges to it where | | | | | | appropriate. | | | | | | Final/Electronically | | | | | | signed / GENET | | | | | | JOSE 01/01/2015 14:49 PM | | | | | | | | | | + + + + + + + + | Specimen | + + | | + + + +---------+ + + | Performing | Address | City/State/Zipcode | Phone Number | | Organization | | | | + +---------+ + + | [facility] DEPARTMENT OF | | | | | RADIOLOGY | | | | + +---------+ + + CBC (HEMOGRAM) ONLY (01/01/2015 6:28 AM PDT) + + + + + + | Component | Value | Ref Range | Performed | Pathologist | | | | | At | Signature | + + + + + + | WHITE CELL | 9.39 | 4.40 - 11.00 | [facility] | | | COUNT | | K/cu mm | LABORATORY | | | | | | SERVICES, | | | | | | CORE | | + + + + + + | RED CELL | 3.74 (L) | 4.50 - 6.00 | [facility] | | | COUNT | | M/cu mm | LABORATORY | | | | | | SERVICES, | | | | | | CORE | | + + + + + + | HEMOGLOBIN | 11.0 (L) | 13.5 - 17.5 | [facility] | | | | | g/dL | LABORATORY | | | | | | SERVICES, | | | | | | CORE | | + + + + + + | HEMATOCRIT | 33.6 (L) | 41.0 - 53.0 % | [facility] | | | | | | LABORATORY | | | | | | SERVICES, | | | | | | CORE | | + + + + + + | MCV | 89.8 | 80.0 - 96.0 fL | [facility] | | | | | | LABORATORY | | | | | | SERVICES, | | | | | | CORE | | + + + + + + | MCHC | 32.7 | 33.0 - 35.5 | [facility] | | | | | g/dL | LABORATORY | | | | | | SERVICES, | | | | | | CORE | | + + + + + + | RDW SD | 43.7 | 35.1 - 46.3 fL | [facility] | | | | | | LABORATORY | | | | | | SERVICES, | | | | | | CORE | | + + + + + + | PLATELET | 292 | 150 - 400 K/cu | [facility] | | | COUNT | | mm | LABORATORY | | | | | | SERVICES, | | | | | | CORE | | + + + + + + | MPV | 10.1 | 9.7 - 12.3 fL | [facility] | | | | | | LABORATORY | | | | | | SERVICES, | | | | | | CORE | | + + + + + + | NRBC% | 0.0 | 0.0 - 0.3 % | [facility] | | | | | | LABORATORY | | | | | | SERVICES, | | | | | | CORE | | + + + + + + | NRBC# | 0.00 | 0.00 - 0.02 | [facility] | | | | | K/cu mm | LABORATORY | | | | | | SERVICES, | | | | | | CORE | | + + + + + + + + | Specimen | + + | Blood | + + + + + + + | Performing | Address | City/State/Zipcode | Phone Number | | Organization | | | | + + + + + | [facility] | [address] | [place] [address] | | | SERVICES, CORE | [address] | | | + + + + + BASIC METABOLIC SET (NA, K, CL, TCO2, BUN, CR, GLU, CA) (01/01/2015 6:28 AM PDT) + + + + + + | Component | Value | Ref Range | Performed | Pathologist | | | | | At | Signature | + + + + + + | GLUCOSE, | 90 | 60 - 99 mg/dL | [facility] | | | PLASMA | | | LABORATORY | | | (LAB) | | | SERVICES, | | | | | | CORE | | + + + + + + | BUN, PLASMA | 31 (H) | 6 - 20 mg/dL | [facility] | | | (LAB) | | | LABORATORY | | | | | | SERVICES, | | | | | | CORE | | + + + + + + | CREATININE | 1.56 (H) | 0.70 - 1.30 | [facility] | | | PLASMA | | mg/dL | LABORATORY | | | (LAB) | | | SERVICES, | | | | | | CORE | | + + + + + + | EGFR | 56 (L) | >60 mL/min | [facility] | | | - | | | LABORATORY | | | [facility]O TOMEAN | | | SERVICES, | | | | | | CORE | | + + + + + + | EGFR NON | 47 (L) | >60 mL/min | [facility] | | | -CARLOS | | | LABORATORY | | | RICAN | | | SERVICES, | | | | | | CORE | | + + + + + + | SODIUM, | 139 | 136 - 145 | [facility] | | | PLASMA | | mmol/L | LABORATORY | | | (LAB) | | | SERVICES, | | | | | | CORE | | + + + + + + | POTASSIUM, | 4.3 | 3.4 - 5.0 | [facility] | | | PLASMA | | mmol/L | LABORATORY | | | (LAB) | | | SERVICES, | | | | | | CORE | | + + + + + + | CHLORIDE, | 109 (H) | 97 - 108 mmol/L | [facility] | | | PLASMA | | | LABORATORY | | | (LAB) | | | SERVICES, | | | | | | CORE | | + + + + + + | TOTAL CO2, | 21 | 21 - 32 mmol/L | [facility] | | | PLASMA | | | LABORATORY | | | (LAB) | | | SERVICES, | | | | | | CORE | | + + + + + + | CALCIUM, | 8.8 | 8.6 - 10.2 | [facility] | | | PLASMA | | mg/dL | LABORATORY | | | (LAB) | | | SERVICES, | | | | | | CORE | | + + + + + + | ANION GAP | 9 | mmol/L | [facility] | | | | | | LABORATORY | | | | | | SERVICES, | | | | | | CORE | | + + + + + + | POTASSIUM | No Hemo | | [facility] | | | CMNT | | | LABORATORY | | | | | | SERVICES, | | | | | | CORE | | + + + + + + + + | Specimen | + + | Blood | + + + + + | Narrative | Performed At | + + + | GFR is estimated using the MDRD equation recommended by the | [facility] | | National Kidney Disease Education Program. Estimated GFR | LABORATORY | | Interpretive Information: <60 mL/min/1.73 sq m | SERVICES, CORE | | Chronic Kidney Disease <15 mL/min/1.73 sq m | | | Kidney Failure Estimated GFR greater that 60 mL/min/1.73 sq m is of | | | limited clinical value. The MDRD equation is not valid in the | | | following situations: - Patients under 18 years of age - Severe | | | malnutrition or obesity - Vegetarian diet - Rapidly changing kidney | | | function | | + + + + + + + + | Performing | Address | City/State/Zipcode | Phone Number | | Organization | | | | + + + + + | [facility] | [address] | [place] [address] | | | SERVICES, CORE | [address] | | | + + + + + CTA CHEST PULMONARY EMBOLISM W CONTRAST (01/01/2015 12:48 AM PDT) + + + + + + | Component | Value | Ref Range | Performed | Pathologist | | | | | At | Signature | + + + + + + | CTA CHEST | EXAM: CTA CHEST | | | | | PULMONARY | PULMONARY EMBOLISM | | | | | EMBOLISM | 01/01/15 00:48:00 | | | | | | HISTORY: 54 year-old | | | | | | male with left-sided | | | | | | chest pain. Evaluate | | | | | | for possiblepulmonary | | | | | | embolism. COMPARISON: | | | | | | Radiograph 12/31/14 | | | | | | TECHNIQUE: Following | | | | | | uneventful | | | | | | administration of 100 ml | | | | | | Omnipaque | | | | | | 350intravenous contrast | | | | | | helical scanning was | | | | | | obtained of the chest | | | | | | and reviewed insoft | | | | | | tissue and lung | | | | | | algorithm. Oblique MIP | | | | | | images were also | | | | | | generated. FINDINGS: | | | | | | Opacification is | | | | | | adequate for assessment | | | | | | of pulmonary artery | | | | | | emboli. There issome | | | | | | motion on the scan. No | | | | | | filling defect in the | | | | | | pulmonary arteries to | | | | | | the proximal | | | | | | subsegmental level.The | | | | | | heart size is normal, | | | | | | without pericardial | | | | | | effusion. There is no | | | | | | evidencefor elevated | | | | | | right heart pressures. | | | | | | Few scattered calcific | | | | | | plaques within theaorta. | | | | | | There is no evidence | | | | | | for axillary, | | | | | | mediastinal or hilar | | | | | | lymphadenopathy. | | | | | | Thethyroid is | | | | | | unremarkable. No focal | | | | | | consolidation. Very | | | | | | minimal scattered | | | | | | atelectasis in the left. | | | | | | Nopulmonary nodule is | | | | | | evident. Small left | | | | | | pleural effusion is | | | | | | noted. No rightpleural | | | | | | effusion, however the | | | | | | right costophrenic angle | | | | | | is not visualized on | | | | | | theCT. No acute osseous | | | | | | abnormality. Soft | | | | | | tissues are | | | | | | unremarkable. | | | | | | Visualizedportions of | | | | | | the liver, spleen, | | | | | | stomach are | | | | | | unremarkable. | | | | | | IMPRESSION: No pulmonary | | | | | | embolism. Small | | | | | | layering left pleural | | | | | | effusion with minimal | | | | | | adjacent atelectasis. | | | | | | Lungsotherwise clear. | | | | | | Attending Radiologists: | | | | | | GEOFFREY JULIO, | | | | | | MDAuthor: GOSIA | | | | | | MD GUILLERMO I have | | | | | | personally viewed this | | | | | | procedure/exam, reviewed | | | | | | this report, and | | | | | | madechanges to it where | | | | | | appropriate. | | | | | | Final/Electronically | | | | | | signed / GEOFFREY | | | | | | SUMANTH 01/01/2015 8:23 | | | | | | AM | | | | + + + + + + + + | Specimen | + + | | + + + +---------+ + + | Performing | Address | City/State/Zipcode | Phone Number | | Organization | | | | + +---------+ + + | [facility] DEPARTMENT OF | | | | | RADIOLOGY | | | | + +---------+ + + CT HEAD WO CONTRAST (12/31/2014 8:57 PM PDT) + + + + + + | Component | Value | Ref Range | Performed | Pathologist | | | | | At | Signature | + + + + + + | CT HEAD WO | EXAM: CT head without | | | | | CONTRAST | contrast HISTORY: | | | | | | 54-year-old man presents | | | | | | with headache. | | | | | | COMPARISON: None | | | | | | TECHNIQUE: CT of the | | | | | | head without contrast. | | | | | | FINDINGS: Brain: No | | | | | | acute intracranial | | | | | | abnormality. No | | | | | | evidence of hemorrhage, | | | | | | mass, oracute | | | | | | infarction. The | | | | | | ventricles are normal in | | | | | | size and morphology. | | | | | | Thebifrontal extra-axial | | | | | | spaces are mildly | | | | | | prominent. Soft tissues: | | | | | | UnremarkableSkull and | | | | | | skull base: No fractures | | | | | | or destructive lesions. | | | | | | Mastoids and middleears | | | | | | are | | | | | | unremarkable.Face/orbits | | | | | | : Visualized portions | | | | | | are | | | | | | unremarkable.Paranasal | | | | | | sinuses: The sequela of | | | | | | chronic sinusitis status | | | | | | post paranasal | | | | | | sinussurgery is | | | | | | observed. No evidence of | | | | | | opacification of the | | | | | | visualized sinuses. | | | | | | IMPRESSION: No evidence | | | | | | of acute hemorrhage, | | | | | | herniation, or | | | | | | hydrocephalus. Attending | | | | | | Radiologists: ELLIOTT | | | | | | MARY HARRISONuthor: ELLIOTT | | | | | | MD HUNTER I have | | | | | | personally viewed this | | | | | | procedure/exam, reviewed | | | | | | this report, and | | | | | | madechanges to it where | | | | | | appropriate. | | | | | | Final/Electronically | | | | | | signed / ELLIOTT | | | | | | HUNTER 12/31/2014 21:55 | | | | | | PM | | | | + + + + + + + + | Specimen | + + | | + + + +---------+ + + | Performing | Address | City/State/Zipcode | Phone Number | | Organization | | | | + +---------+ + + | [facility] DEPARTMENT OF | | | | | RADIOLOGY | | | | + +---------+ + + OCCULT BLOOD,FECAL - POC IP ONLY (12/31/2014 7:39 PM PDT) + + + + + + | Component | Value | Ref Range | Performed | Pathologist | | | | | At | Signature | + + + + + + | OCCULT | Negative | Negative | | | | BLOOD, | | | | | | FECES, | | | | | | SCREEN | | | | | + + + + + + | QC: ENTER | PASS | | | | | "PASS" OR | | | | | | "FAIL", | | | | | | OCCULT | | | | | | BLOOD | | | | | + + + + + + TROPONIN, POC (12/31/2014 5:22 PM PDT) + +-------+ + + + | Component | Value | Ref Range | Performed | Pathologist | | | | | At | Signature | + +-------+ + + + | TROPONIN, | 0.00 | 0.0 - 0.49 | [facility] - | | | POC | | ng/mL | [facility] | | | | | | [facility] | | | | | | OF CARE | | | | | | TESTS | | + +-------+ + + + + + | Specimen | + + | | + + + + + + + | Performing | Address | City/State/Zipcode | Phone Number | | Organization | | | | + + + + + | [facility] | [address] | [place], [place] | | | [facility] | [address] | [address] | | | TESTS | | | | + + + + + RAINBOW HOLD TUBE - RED TOP (12/31/2014 5:19 PM PDT) + + | Specimen | + + | Blood - Blood | | (substance) | + + + + + + + | Performing | Address | City/State/Zipcode | Phone Number | | Organization | | | | + + + + + | [facility] | [address] | [place] [address] | | | SERVICES, CORE | [address] | | | + + + + + RAINBOW HOLD TUBE - BLUE TOP (12/31/2014 5:19 PM PDT) + + | Specimen | + + | Blood - Blood | | (substance) | + + + + + + + | Performing | Address | City/State/Zipcode | Phone Number | | Organization | | | | + + + + + | [facility] | [address] | [place] [address] | | | SERVICES, CORE | [address] | | | + + + + + BLOOD BANK HOLD TUBE - DON T PROCESS (12/31/2014 5:19 PM PDT) + + + + + + | Component | Value | Ref Range | Performed | Pathologist | | | | | At | Signature | + + + + + + | SPECIMEN | Sample received with | | [facility] | | | COLLECTED, | adeq label/volume to | | LABORATORY | | | HELD | process | | SERVICES, | | | | | | TRANSFUSION | | | | | | MEDICINE | | + + + + + + + + | Specimen | + + | Blood - Blood | + + + + + + + | Performing | Address | City/State/Zipcode | Phone Number | | Organization | | | | + + + + + | [facility] | [address] | [place] [address] | | | SERVICES, | [address] | | | | TRANSFUSION MEDICINE | | | | + + + + + X-RAY CHEST 2 VIEW (12/31/2014 4:10 PM PDT) + + + + + + | Component | Value | Ref Range | Performed | Pathologist | | | | | At | Signature | + + + + + + | CHEST, 2 | EXAM: CHEST 2 VIEWS | | | | | VIEWS [place] | 12/31/14 16:10 HISTORY: | | | | | STEREO | 54 year old male with a | | | | | | subjective fever. | | | | | | COMPARISON: None. | | | | | | FINDINGS: The cardiac | | | | | | silhouette is normal in | | | | | | size and the mediastinal | | | | | | contour is withinnormal | | | | | | limits. A small left | | | | | | pleural effusion is | | | | | | present. No focal | | | | | | consolidation or | | | | | | pulmonaryedema is | | | | | | appreciated. There is no | | | | | | pneumothorax. No right | | | | | | pleural effusion | | | | | | ispresent. The regional | | | | | | osseous structures are | | | | | | intact. IMPRESSION: | | | | | | Small left pleural | | | | | | effusion. In the setting | | | | | | of fever, this is | | | | | | favored to be | | | | | | aparapneumonic effusion | | | | | | related to | | | | | | current/recent | | | | | | pneumonia. Other | | | | | | potentialetiologies for | | | | | | a unilateral pleural | | | | | | effusion include trauma, | | | | | | malignancy,pancreatitis | | | | | | or hepatic cirrhosis | | | | | | with portal | | | | | | hypertension. Attending | | | | | | Radiologists: BRODY | | | | | | MARY ANAYAuthor: BRODY | | | | | | MD HÉCTOR I have | | | | | | personally viewed this | | | | | | procedure/exam, reviewed | | | | | | this report, and | | | | | | madechanges to it where | | | | | | appropriate. | | | | | | Final/Electronically | | | | | | ricky / BRODY | | | | | | HÉCTOR 12/31/2014 16:24 | | | | | | PM | | | | + + + + + + + + | Specimen | + + | | + + + +---------+ + + | Performing | Address | City/State/Zipcode | Phone Number | | Organization | | | | + +---------+ + + | [facility] | | | | [facility] | | | | + +---------+ + + CBC AND AUTO DIFF (12/31/2014 3:06 PM PDT) + + + + + + | Component | Value | Ref Range | Performed | Pathologist | | | | | At | Signature | + + + + + + | WHITE CELL | 13.35 (H) | 4.40 - 11.00 | [facility] | | | COUNT | | K/cu mm | LABORATORY | | | | | | SERVICES, | | | | | | CORE | | + + + + + + | RED CELL | 4.35 (L) | 4.50 - 6.00 | [facility] | | | COUNT | | M/cu mm | LABORATORY | | | | | | SERVICES, | | | | | | CORE | | + + + + + + | HEMOGLOBIN | 12.9 (L) | 13.5 - 17.5 | [facility] | | | | | g/dL | LABORATORY | | | | | | SERVICES, | | | | | | CORE | | + + + + + + | HEMATOCRIT | 39.0 (L) | 41.0 - 53.0 % | [facility] | | | | | | LABORATORY | | | | | | SERVICES, | | | | | | CORE | | + + + + + + | MCV | 89.7 | 80.0 - 96.0 fL | [facility] | | | | | | LABORATORY | | | | | | SERVICES, | | | | | | CORE | | + + + + + + | MCHC | 33.1 | 33.0 - 35.5 | [facility] | | | | | g/dL | LABORATORY | | | | | | SERVICES, | | | | | | CORE | | + + + + + + | RDW SD | 43.8 | 35.1 - 46.3 fL | [facility] | | | | | | LABORATORY | | | | | | SERVICES, | | | | | | CORE | | + + + + + + | PLATELET | 372 | 150 - 400 K/cu | [facility] | | | COUNT | | mm | LABORATORY | | | | | | SERVICES, | | | | | | CORE | | + + + + + + | MPV | 10.7 | 9.7 - 12.3 fL | [facility] | | | | | | LABORATORY | | | | | | SERVICES, | | | | | | CORE | | + + + + + + | NRBC% | 0.0 | 0.0 - 0.3 % | [facility] | | | | | | LABORATORY | | | | | | SERVICES, | | | | | | CORE | | + + + + + + | NRBC# | 0.00 | 0.00 - 0.02 | [facility] | | | | | K/cu mm | LABORATORY | | | | | | SERVICES, | | | | | | CORE | | + + + + + + | NEUTROPHIL | 64.2 | 50.0 - 70.0 % | [facility] | | | % | | | LABORATORY | | | | | | SERVICES, | | | | | | CORE | | + + + + + + | LYMPHOCYTE | 20.6 | 18.0 - 42.0 % | [facility] | | | % | | | LABORATORY | | | | | | SERVICES, | | | | | | CORE | | + + + + + + | MONOCYTE % | 9.3 (H) | 3.5 - 9.0 % | [facility] | | | | | | LABORATORY | | | | | | SERVICES, | | | | | | CORE | | + + + + + + | EOS % | 4.6 (H) | 1.0 - 3.0 % | [facility] | | | | | | LABORATORY | | | | | | SERVICES, | | | | | | CORE | | + + + + + + | BASO % | 0.7 | 0.0 - 2.0 % | [facility] | | | | | | LABORATORY | | | | | | SERVICES, | | | | | | CORE | | + + + + + + | IG% | 0.6Comment: Immature | 0.0 - 0.6 % | [facility] | | | | Granulocytes (IG) | | LABORATORY | | | | include metamyelocytes, | | SERVICES, | | | | myelocytes and | | CORE | | | | promyelocytes. Bands | | | | | | are not included in the | | | | | | IG count. Bands are | | | | | | included in the | | | | | | neutrophil count. | | | | + + + + + + | NEUTROPHIL | 8.56 (H) | 1.80 - 7.70 | [facility] | | | # | | K/cu mm | LABORATORY | | | | | | SERVICES, | | | | | | CORE | | + + + + + + | LYMPHOCYTE | 2.75 | 1.00 - 4.80 | [facility] | | | # | | K/cu mm | LABORATORY | | | | | | SERVICES, | | | | | | CORE | | + + + + + + | MONOCYTE # | 1.24 (H) | 0.10 - 0.90 | [facility] | | | | | K/cu mm | LABORATORY | | | | | | SERVICES, | | | | | | CORE | | + + + + + + | EOS # | 0.62 (H) | 0.00 - 0.50 | [facility] | | | | | K/cu mm | LABORATORY | | | | | | SERVICES, | | | | | | CORE | | + + + + + + | BASO # | 0.10 | 0.00 - 0.10 | [facility] | | | | | K/cu mm | LABORATORY | | | | | | SERVICES, | | | | | | CORE | | + + + + + + | IG# | 0.08 (H) | 0.00 - 0.03 | [facility] | | | | | K/cu mm | LABORATORY | | | | | | SERVICES, | | | | | | CORE | | + + + + + + + + | Specimen | + + | Blood - Blood | | (substance) | + + + + + | Narrative | Performed At | + + + | Immature Granulocytes (IG) include metamyelocytes, myelocytes | [facility] | | and promyelocytes. Bands are not included in the IG count. Bands are | LABORATORY | | included in the neutrophil count. | BILL, CORE | + + + + + + + + | Performing | Address | City/State/Zipcode | Phone Number | | Organization | | | | + + + + + | [facility] | [address] | [place] [address] | | | SERVICES, CORE | [address] | | | + + + + + COMPLETE METABOLIC SET (NA,K,CL,CO2,BUN,CREAT,GLUC,CA,AST,ALT,BILI TOTAL,ALK PHOS,ALB,PROT TOTAL) (12/31/2014 3:06 PM PDT) + + + + + + | Component | Value | Ref Range | Performed | Pathologist | | | | | At | Signature | + + + + + + | GLUCOSE, | 133 (H) | 60 - 99 mg/dL | [facility] | | | PLASMA | | | LABORATORY | | | (LAB) | | | SERVICES, | | | | | | CORE | | + + + + + + | BUN, PLASMA | 26 (H) | 6 - 20 mg/dL | [facility] | | | (LAB) | | | LABORATORY | | | | | | SERVICES, | | | | | | CORE | | + + + + + + | CREATININE | 1.49 (H) | 0.70 - 1.30 | [facility] | | | PLASMA | | mg/dL | LABORATORY | | | (LAB) | | | SERVICES, | | | | | | CORE | | + + + + + + | EGFR | 59 (L) | >60 mL/min | [facility] | | | - | | | LABORATORY | | | [place] | | | SERVICES, | | | | | | CORE | | + + + + + + | EGFR NON | 49 (L) | >60 mL/min | [facility] | | | -CARLOS | | | LABORATORY | | | RICAN | | | SERVICES, | | | | | | CORE | | + + + + + + | SODIUM, | 138 | 136 - 145 | [facility] | | | PLASMA | | mmol/L | LABORATORY | | | (LAB) | | | SERVICES, | | | | | | CORE | | + + + + + + | POTASSIUM, | 4.5 | 3.4 - 5.0 | [facility] | | | PLASMA | | mmol/L | LABORATORY | | | (LAB) | | | SERVICES, | | | | | | CORE | | + + + + + + | CHLORIDE, | 109 (H) | 97 - 108 mmol/L | [facility] | | | PLASMA | | | LABORATORY | | | (LAB) | | | SERVICES, | | | | | | CORE | | + + + + + + | TOTAL CO2, | 21 | 21 - 32 mmol/L | [facility] | | | PLASMA | | | LABORATORY | | | (LAB) | | | SERVICES, | | | | | | CORE | | + + + + + + | CALCIUM, | 9.5 | 8.6 - 10.2 | [facility] | | | PLASMA | | mg/dL | LABORATORY | | | (LAB) | | | SERVICES, | | | | | | CORE | | + + + + + + | BILIRUBIN | 0.3 | 0.3 - 1.2 mg/dL | [facility] | | | TOTAL | | | LABORATORY | | | | | | SERVICES, | | | | | | CORE | | + + + + + + | TOTAL | 7.8 | 6.4 - 8.2 g/dL | [facility] | | | PROTEIN, | | | LABORATORY | | | PLASMA | | | SERVICES, | | | (LAB) | | | CORE | | + + + + + + | ALBUMIN, | 4.1 | 3.5 - 4.7 g/dL | [facility] | | | PLASMA | | | LABORATORY | | | (LAB) | | | SERVICES, | | | | | | CORE | | + + + + + + | ALK PHOS | 56 | 53 - 128 U/L | [facility] | | | | | | LABORATORY | | | | | | SERVICES, | | | | | | CORE | | + + + + + + | AST(SGOT) | 22 | <=41 U/L | [facility] | | | | | | LABORATORY | | | | | | SERVICES, | | | | | | CORE | | + + + + + + | ALT (SGPT) | 18 | <=60 U/L | [facility] | | | | | | LABORATORY | | | | | | SERVICES, | | | | | | CORE | | + + + + + + | ANION | 7 | 4 - 11 mmol/L | [facility] | | | GAP(ALB | | | LABORATORY | | | CORRECTED) | | | SERVICES, | | | | | | CORE | | + + + + + + | POTASSIUM | No Hemo | | [facility] | | | CMNT | | | LABORATORY | | | | | | SERVICES, | | | | | | CORE | | + + + + + + | BILI T CMNT | No Hemo | | [facility] | | | | | | LABORATORY | | | | | | SERVICES, | | | | | | CORE | | + + + + + + | AST CMNT | No Hemo | | [facility] | | | | | | LABORATORY | | | | | | SERVICES, | | | | | | CORE | | + + + + + + | ANION GAP | 8 | mmol/L | [facility] | | | | | | LABORATORY | | | | | | SERVICES, | | | | | | CORE | | + + + + + + + + | Specimen | + + | Blood - Blood | | (substance) | + + + + + | Narrative | Performed At | + + + | GFR is estimated using the MDRD equation recommended by the | [facility] | | National Kidney Disease Education Program. Estimated GFR | LABORATORY | | Interpretive Information: <60 mL/min/1.73 sq m | SERVICES, CORE | | Chronic Kidney Disease <15 mL/min/1.73 sq m | | | Kidney Failure Estimated GFR greater that 60 mL/min/1.73 sq m is of | | | limited clinical value. The MDRD equation is not valid in the | | | following situations: - Patients under 18 years of age - Severe | | | malnutrition or obesity - Vegetarian diet - Rapidly changing kidney | | | function | | + + + + + + + + | Performing | Address | City/State/Zipcode | Phone Number | | Organization | | | | + + + + + | [facility] | [address] | [place] [address] | | | SERVICES, CORE | [address] | | | + + + + + SEDIMENTATION RATE (12/31/2014 3:06 PM PDT) + +--------+ + + + | Component | Value | Ref Range | Performed | Pathologist | | | | | At | Signature | + +--------+ + + + | SEDIMENTATI | 27 (H) | 0 - 20 mm/hr | [facility] | | | ON RATE | | | LABORATORY | | | | | | SERVICES, | | | | | | CORE | | + +--------+ + + + + + | Specimen | + + | Blood - Blood | | (substance) | + + + + + + + | Performing | Address | City/State/Zipcode | Phone Number | | Organization | | | | + + + + + | [facility] | [address] | [place] [address] | | | SERVICES, CORE | [address] | | | + + + + + C-REACTIVE PROTEIN (12/31/2014 3:06 PM PDT) + +-------+ + + + | Component | Value | Ref Range | Performed | Pathologist | | | | | At | Signature | + +-------+ + + + | C-REACTIVE | <2.9 | <10.0 mg/L | [facility] | | | PROTEIN | | | LABORATORY | | | | | | SERVICES, | | | | | | CORE | | + +-------+ + + + + + | Specimen | + + | Blood - Blood | | (substance) | + + + + + | Narrative | Performed At | + + + | New method, new reference range and new reporting units as of | [facility] | | 10/04/2013. | LABORATORY | | | [address] | + + + + + + + + | Performing | Address | City/State/Zipcode | Phone Number | | Organization | | | | + + + + + | [facility] | [address] | [place] [address] | | | R[place]DA [place] | [address] | | | + + + + + 12 LEAD ECG (12/31/2014 2:07 PM PDT) + + + + + + | Component | Value | Ref Range | Performed | Pathologist | | | | | At | Signature | + + + + + + | VENTRICULAR | 73 | bpm | [facility] | | | RATE | | | OF | | | | | | CARDIOLOGY | | + + + + + + | ATRIAL RATE | 73 | bpm | [facility] | | | | | | OF | | | | | | CARDIOLOGY | | + + + + + + | P-R | 132 | ms | [facility] | | | INTERVAL | | | OF | | | | | | CARDIOLOGY | | + + + + + + | P AXIS | -12 | deg | [facility] | | | | | | OF | | | | | | CARDIOLOGY | | + + + + + + | QRS | 114 | ms | [facility] | | | DURATION | | | OF | | | | | | CARDIOLOGY | | + + + + + + | QT | 384 | ms | [facility] | | | | | | OF | | | | | | CARDIOLOGY | | + + + + + + | QTC-BASOLANGE | 424 | ms | [facility] | | | | | | OF | | | | | | CARDIOLOGY | | + + + + + + | R AXIS | -89 | deg | [facility] | | | | | | OF | | | | | | CARDIOLOGY | | + + + + + + | T AXIS | 25 | deg | [facility] | | | | | | OF | | | | | | CARDIOLOGY | | + + + + + + | ECG | SINUS RHYTHMNONSPECIFIC | | [facility] | | | IMPRESSION | INTRAVENTRICULAR | | OF | | | | CONDUCTION DELAY- | | CARDIOLOGY | | | | ABNORMAL ECG | | | | | | -Electronically signed | | | | | | by: DINH LUQUE | | | | | | 12-31-2014 15:11:55 | | | | + + + + + + + + | Specimen | + + | | + + + + + | Narrative | Performed At | + + + | | | + + + + + + + + | Performing | Address | City/State/Zipcode | Phone Number | | Organization | | | | + + + + + | [facility] | [address] | [place], [place] | | | CARDIOLOGY | [address] | [address] | | + + + + + ORDERS OTHER (12/31/2014 12:00 AM PDT) + + + | Narrative | Performed At | + + + | | | + + + documented in this encounter Visit Diagnoses + + | Diagnosis | + + | Pleural effusion - Primary Unspecified pleural effusion | + + | Shortness of breath | + + | Coronary artery disease s/p stenting 2015 Coronary atherosclerosis of unspecified | | type of vessel, [place] or graft | + + | Hyperlipidemia Other and unspecified hyperlipidemia | + + | Essential hypertension | + + | CKD (chronic kidney disease), stage III (HCC) Chronic kidney disease, Stage III | | (moderate) | + + | Mild persistent asthma Unspecified asthma | + + documented in this encounter Administered Medications + +--------+ +--------+------+------+ | Medication Order | MAR | Action | Dose | Rate | Site | | | Action | Date | | | | + +--------+ +--------+------+------+ | acetaminophen (TYLENOL) tablet | Given | 01/03/20 | 650 mg | | | | 325-650 mg 325-650 mg, oral, | | 15 8:18 | | | | | EVERY 4 HOURS NEEDED, Starting | | AM PDT | | | | | 01/01/15 at 0105, Until Vera | | | | | | | 01/03/15 at 0044, mild pain | | | | | | + +--------+ +--------+------+------+ +-------+ +--------+---+---+ | Given | 01/02/20 | 650 mg | | | | | 15 10:16 | | | | | | PM PDT | | | | +-------+ +--------+---+---+ | Given | 01/02/20 | 650 mg | | | | | 15 4:00 | | | | | | PM PDT | | | | +-------+ +--------+---+---+ +---+---+ | | | +---+---+ + +-------+ +---------+---+---+ | albuterol (PROVENTIL, VENTOLIN) | Given | 01/02/20 | 2 puffs | | | | 90 mcg/actuation inhaler 1-2 | | 15 10:16 | | | | | puff 1-2 puff, inhalation, EVERY | | PM PDT | | | | | 4 HOURS NEEDED, Starting Tue | | | | | | | 01/01/15 at 0207, Until Vera 01/03/15 | | | | | | | at 0044, dyspnea/SOB | | | | | | + +-------+ +---------+---+---+ +---+---+ | | | +---+---+ + +-------+ +-------+---+---+ | amLODIPine (NORVASC) tablet 10 | Given | 01/03/20 | 10 mg | | | | mg 10 mg, oral, DAILY, First | | 15 8:10 | | | | | dose on Wed01/01/15 at 0900, Until | | AM PDT | | | | | Discontinued | | | | | | + +-------+ +-------+---+---+ +-------+ +-------+---+---+ | Given | 01/02/20 | 10 mg | | | | | 15 8:24 | | | | | | AM PDT | | | | +-------+ +-------+---+---+ +---+---+ | | | +---+---+ + +-------+ +-------+---+---+ | aspirin EC tablet 81 mg 81 mg, | Given | 01/03/20 | 81 mg | | | | oral, DAILY, First dose on Wed | | 15 8:09 | | | | | 01/01/15 at 0900, Until | | AM PDT | | | | | Discontinued | | | | | | + +-------+ +-------+---+---+ +-------+ +-------+---+---+ | Given | 01/02/20 | 81 mg | | | | | 15 8:22 | | | | | | AM PDT | | | | +-------+ +-------+---+---+ +---+---+ | | | +---+---+ + +-------+ +-------+---+---+ | atorvastatin (LIPITOR) tablet | Given | 01/03/20 | 10 mg | | | | 10 mg 10 mg, oral, DAILY, First | | 15 8:10 | | | | | dose on Wed01/01/15 at 0900, Until | | AM PDT | | | | | Discontinued | | | | | | + +-------+ +-------+---+---+ +-------+ +-------+---+---+ | Given | 01/02/20 | 10 mg | | | | | 15 8:00 | | | | | | AM PDT | | | | +-------+ +-------+---+---+ +---+---+ | | | +---+---+ + +-------+ +---------+---+---+ | budesonide-formoterol | Given | 01/03/20 | 2 puffs | | | | (SYMBICORT) 160-4.5 mcg/actuation | | 15 8:11 | | | | | inhaler 2 puff 2 puff, | | AM PDT | | | | | inhalation, TWICE DAILY, First | | | | | | | dose on Wed01/01/15 at 0900, Until | | | | | | | Discontinued | | | | | | + +-------+ +---------+---+---+ +-------+ +---------+---+---+ | Given | 01/02/20 | 2 puffs | | | | | 15 10:16 | | | | | | PM PDT | | | | +-------+ +---------+---+---+ | Given | 01/02/20 | 2 puffs | | | | | 15 8:22 | | | | | | AM PDT | | | | +-------+ +---------+---+---+ +---+---+ | | | +---+---+ + +-------+ +-------+---+---+ | clopidogrel (PLAVIX) tablet 75 | Given | 01/03/20 | 75 mg | | | | mg 75 mg, oral, DAILY, First | | 15 8:09 | | | | | dose on Wed01/01/15 at 0900, Until | | AM PDT | | | | | Discontinued | | | | | | + +-------+ +-------+---+---+ +-------+ +-------+---+---+ | Given | 01/02/20 | 75 mg | | | | | 15 8:21 | | | | | | AM PDT | | | | +-------+ +-------+---+---+ +---+---+ | | | +---+---+ + +---------+ +-------+---+---+ | diphenhydrAMINE (BENADRYL) | IV Push | 01/01/20 | 25 mg | | | | injection 25 mg 25 mg, | | 15 9:35 | | | | | intravenous, ONCE, 1 dose, Mon | | PM PDT | | | | | 12/31/14 at 2115 | | | | | | + +---------+ +-------+---+---+ +---+---+ | | | +---+---+ + +-------+ +-------+---+---+ | fenofibrate (TRICOR) tablet 48 | Given | 01/03/20 | 48 mg | | | | mg 48 mg, oral, DAILY, First | | 15 8:12 | | | | | dose on Wed01/02/15 at 0900, Until | | AM PDT | | | | | Discontinued | | | | | | + +-------+ +-------+---+---+ +---+---+ | | | +---+---+ + +-------+ +--------+---+---+ | hydrALAZINE (APRESOLINE) tablet | Given | 01/03/20 | 100 mg | | | | 100 mg 100 mg, oral, THREE | | 15 4:13 | | | | | TIMES DAILY, First dose on Mon | | PM PDT | | | | | 12/31/14 at 2245, Until | | | | | | | Discontinued | | | | | | + +-------+ +--------+---+---+ +-------+ +--------+---+---+ | Given | 01/03/20 | 100 mg | | | | | 15 8:10 | | | | | | AM PDT | | | | +-------+ +--------+---+---+ | Given | 01/02/20 | 100 mg | | | | | 15 4:00 | | | | | | PM PDT | | | | +-------+ +--------+---+---+ +---+---+ | | | +---+---+ + +-------+ +-------+---+---+ | hydrochlorothiazide | Given | 01/03/20 | 25 mg | | | | (HYDRODIURIL) tablet 25 mg 25 | | 15 8:10 | | | | | mg, oral, DAILY, First dose on | | AM PDT | | | | | 01/01/15 at 0900, Until | | | | | | | Discontinued | | | | | | + +-------+ +-------+---+---+ +-------+ +-------+---+---+ | Given | 01/02/20 | 25 mg | | | | | 15 8:20 | | | | | | AM PDT | | | | +-------+ +-------+---+---+ +---+---+ | | | +---+---+ + +---------+ +--------+---------+ + | iohexol (OMNIPAQUE) 300 mg | New Bag | 01/02/20 | 100 mL | 4 mL/hr | Right AC | | iodine/mL injection 100 mL 100 | | 15 2:01 | | | | | mL, intravenous, PROCEDURE ONCE, | | AM PDT | | | | | 1 dose, [facility] 01/01/15 at 0215 | | | | | | + +---------+ +--------+---------+ + +---+---+ | | | +---+---+ + +---------+ +-------+---+---+ | ketorolac (TORADOL) injection | IV Push | 01/01/20 | 30 mg | | | | 30 mg 30 mg, intravenous, ONCE, | | 15 9:35 | | | | | 1 dose, 12/31/14 at 2115 | | PM PDT | | | | + +---------+ +-------+---+---+ +---+---+ | | | +---+---+ + +---------+ + +---+---+ | lactated ringers IV 1,000 mL, | New Bag | 01/01/20 | 1,000 mL | | | | intravenous, ONCE, 1 dose, Mon | | 15 11:00 | | | | | 12/31/14 at 2315 | | PM PDT | | | | + +---------+ + +---+---+ +---+---+ | | | +---+---+ + +---------+ +-------+---+---+ | metoclopramide HCl (REGLAN) | IV Push | 01/01/20 | 10 mg | | | | injection 10 mg 10 mg, | | 15 9:35 | | | | | intravenous, ONCE, 1 dose, Mon | | PM PDT | | | | | 12/31/14 at 2115 | | | | | | + +---------+ +-------+---+---+ +---+---+ | | | +---+---+ + +-------+ +-------+---+---+ | metoprolol succinate | Given | 01/03/20 | 50 mg | | | | (TOPROL-XL) tablet 50 mg 50 mg, | | 15 8:10 | | | | | oral, DAILY, First dose on Wed | | AM PDT | | | | | 01/01/15 at 0900, Until | | | | | | | Discontinued | | | | | | + +-------+ +-------+---+---+ +-------+ +-------+---+---+ | Given | 01/02/20 | 50 mg | | | | | 15 8:24 | | | | | | AM PDT | | | | +-------+ +-------+---+---+ +---+---+ | | | +---+---+ + +-------+ + +---+---+ | senna-docusate (SENOKOT S) | Given | 01/03/20 | 1 tablet | | | | 8.6-50 mg 1 tablet 1 tablet, | | 15 8:10 | | | | | oral, TWICE DAILY, First dose on | | AM PDT | | | | | Wed01/01/15 at 0900, Until | | | | | | | Discontinued | | | | | | + +-------+ + +---+---+ +-------+ + +---+---+ | Given | 01/02/20 | 1 tablet | | | | | 15 10:16 | | | | | | PM PDT | | | | +-------+ + +---+---+ | Given | 01/02/20 | 1 tablet | | | | | 15 8:21 | | | | | | AM PDT | | | | +-------+ + +---+---+ +---+---+ | | | +---+---+ + +-------+ +-------+---+---+ | spironolactone (ALDACTONE) | Given | 01/03/20 | 50 mg | | | | tablet 50 mg 50 mg, oral, DAILY, | | 15 8:09 | | | | | First dose on Wed01/01/15 at | | AM PDT | | | | | 0900, Until Discontinued | | | | | | + +-------+ +-------+---+---+ +-------+ +-------+---+---+ | Given | 01/02/20 | 50 mg | | | | | 15 8:21 | | | | | | AM PDT | | | | +-------+ +-------+---+---+ +---+---+ | | | +---+---+ + +-------+ +--------+---+---+ | valsartan (DIOVAN) tablet 320 | Given | 01/03/20 | 320 mg | | | | mg 320 mg, oral, DAILY, First | | 15 8:10 | | | | | dose on Wed01/01/15 at 0900, Until | | AM PDT | | | | | Discontinued | | | | | | + +-------+ +--------+---+---+ +-------+ +--------+---+---+ | Given | 01/02/20 | 320 mg | | | | | 15 8:21 | | | | | | AM PDT | | | | +-------+ +--------+---+---+ +---+---+ | | | +---+---+ documented in this encounter
--- OUTSIDE RECORDS SUMMARY | ~2019-11-21 | XMS | Encounter Summary ---
Demographics + + + | Address | [address] | | | [place] [address] | + + + | Home Phone | | + + + | Preferred Language | Unknown | + + + | Marital Status | | + + + | Jehovah'S Witness Affiliation | CHR | + + + | Race | White | + + + | Ethnic Group | Not or | + + + Author + + + | Author | [facility] | + + + | Organization | [facility] | + + + | Address | Unknown | + + + | Phone | Unavailable | + + + Support + + + + + | Name | Relationship | Address | Phone | + + + + + | Rabia Aguilar | ECON | [address] | | | | | [place] | | | | | [address] | | + + + + + Care Team Providers + +------+ + | Care Oncology Registrar Name | Role | Phone | + +------+ + | Uday Parra MD | PCP | | + +------+ + Reason for Visit +--------+ + | Reason | Comments | +--------+ + | Other | [facility] | +--------+ + Encounter Details +--------+ + + + + | Date | Type | Department | Care Team | Description | +--------+ + + + + | 07/25/ | Telephone | Rheumatology at | Jenny Hawkins, | Other ([facility]) | | 2015 | | Lorenzo Nicholas MD | | | | | [address] | | | | | | [address] | | | | | | [address], [address] | | | | | | [place], [place] | | | | | | [address] | | | | | | [phone] | | | +--------+ + + + [...] + + documented as of this encounter Plan of Treatment Not on filedocumented as of this encounter Visit Diagnoses Not on filedocumented in this encounter"
--- OUTSIDE RECORDS SUMMARY | ~2019-11-21 | XMS | Encounter Summary ---
Demographics + + + | Address | [address] | | | [place] [address] | + + + | Home Phone | | + + + | Preferred Language | Unknown | + + + | Marital Status | | + + + | Spiritism Affiliation | CHR | + + + | Race | White | + + + | Ethnic Group | Not or | + + + Author + + + | Author | [facility] | + + + | Organization | [facility] | + + + | Address | Unknown | + + + | Phone | Unavailable | + + + Support + + + + + | Name | Relationship | Address | Phone | + + + + + | Rabia Aguilar | ECON | [address] | | | | | [place] | | | | | [address] | | + + + + + Care Team Providers + +------+ + | Care Clay Worker Name | Role | Phone | + +------+ + | Uday Parra MD | PCP | | + +------+ + Encounter Details +--------+ + + + + | Date | Type | Department | Care Team | Description | +--------+ + + + + | 01/10/ | Document-Sc | UNKNOWN DEPARTMENT | Unknown . | | | 2014 | anned | [address] | | | | | | [address] | | | | | | [place] | | | | | | [address] | | | +--------+ + + + [...]
--- OUTSIDE RECORDS SUMMARY | ~2019-11-21 | XMS | Encounter Summary ---
Demographics + + + | Address | [address] | | | [place] [address] | + + + | Home Phone | | + + + | Preferred Language | Unknown | + + + | Marital Status | | + + + | Latter Day Affiliation | CHR | + + + | Race | White | + + + | Ethnic Group | Not or | + + + Author + + + | Author | [facility] | + + + | Organization | [facility] | + + + | Address | Unknown | + + + | Phone | Unavailable | + + + Support + + + + + | Name | Relationship | Address | Phone | + + + + + | Rabia Aguilar | ECON | [address] | | | | | [place] | | | | | [address] | | + + + + + Care Team Providers + +------+ + | Care Bariatric Coordinator Name | Role | Phone | + +------+ + | Uady Parra MD | PCP | | + +------+ + Reason for Visit + + + | Reason | Comments | + + + | Lab Results | | + + + | Update On Condition | | + + + Encounter Details +--------+ + + + + | Date | Type | Department | Care Team | Description | +--------+ + + + + | 08/06/ | Telephone | Rheumatology at | [facility], | Lab Results; Update | | 2015 | | [facility] | MD | On Condition | | | | [address] | | | | | | [address] | | | | | | [address], [address] | | | | | | [place], [place] | | | | | | [address] | | | | | | [phone] | | | +--------+ + + + [...]
--- OUTSIDE RECORDS SUMMARY | ~2019-11-21 | XMS | Encounter Summary ---
Demographics + + + | Address | [address] | | | [place] [address] | + + + | Home Phone | | + + + | Preferred Language | Unknown | + + + | Marital Status | | + + + | Congregation Affiliation | CHR | + + + | Race | White | + + + | Ethnic Group | Not or | + + + Author + + + | Author | [facility] | + + + | Organization | [facility] | + + + | Address | Unknown | + + + | Phone | Unavailable | + + + Support + + + + + | Name | Relationship | Address | Phone | + + + + + | Rabia Aguilar | ECON | [address] | | | | | [place] | | | | | [phone] | | + + + + + Care Team Providers + +------+ + | Care Drilling Supervisor Name | Role | Phone | + +------+ + | Uday Parra MD | PCP | | + +------+ + Encounter Details +--------+ + + + + | Date | Type | Department | Care Team | Description | +--------+ + + + + | 06/10/ | Document-Sc | Health Information | Other, Faculty | | | 2016 | anned | Services [address] | [phone] | | | | | [address] | | | | | | Mailcode: [id number] | | | | | | [facility] | | | | | | [place], [place] | | | | | | [address] | | | | | | [phone] | | | +--------+ + + + [...] | + +--------+ + + + | LAB REPORTS | | 06/10/2015 | | Results for this | | | | 12:00 AM | | procedure are in the | | | | PST | | results section. | + +--------+ + + + documented in this encounter Results LAB REPORTS (06/10/2015 12:00 AM PST) + + + | Narrative | Performed At | + + + | | | + + + documented in this encounter Visit Diagnoses Not on filedocumented in this encounter"
--- OUTSIDE RECORDS SUMMARY | ~2019-11-21 | XMS | Encounter Summary ---
Demographics + + + | Address | [address] | | | [place] [address] | + + + | Home Phone | | + + + | Preferred Language | Unknown | + + + | Marital Status | | + + + | Lutheran Affiliation | CHR | + + + | Race | White | + + + | Ethnic Group | Not or | + + + Author + + + | Author | [facility] | + + + | Organization | [facility] | + + + | Address | Unknown | + + + | Phone | Unavailable | + + + Support + + + + + | Name | Relationship | Address | Phone | + + + + + | Rabia Aguilar | ECON | [address] | | | | | [place] | | | | | [address] | | + + + + + Care Team Providers + +------+ + | Care Interventional Nurse Name | Role | Phone | + +------+ + | Uday Parra MD | PCP | | + +------+ + Reason for Visit Intake Referral (Emergency) +--------+--------+ + + + + | Status | Reason | Specialty | Diagnoses / | Referred By | Referred To | | | | | Procedures | Contact | Contact | +--------+--------+ + + + + | Closed | | Infectious | Diagnoses | Fidel, | Baron, | | | | Disease | Acute and | Uday Rucker MD | Chris Mendoza MD | | | | | subacute | FIDEL | [address] [facility] | | | | | bacterial | MEDICAL | [facility] | | | | | endocarditis | [address] [place], | | | | | | [address] | [place] | | | | | | [place], | [address] | | | | | | [place] [address] | Phone: | | | | | | Phone: | [phone] | | | | | | [phone] | Fax: | | | | | | Fax: | [phone] | | | | | | [phone] | | +--------+--------+ + + + + Encounter Details +--------+---------+ + + + | Date | Type | Department | Care Team | Description | +--------+---------+ + + + | 01/08/ | Office | Infectious | Lee Ann Rincon, | Fever in adult | | 2015 | Visit | [facility] at [facility] | MD [address] | (Primary Dx); CKD | | | | [address] | (chronic kidney | | | | [facility] | [place] [address] | disease) stage 3, | | | | Pavilion, 3rd floor | [phone] | GFR 30-59 ml/min | | | | [place], [place] | | (HCC) | | | | [address] | | | | | | [phone] | | | +--------+---------+ + + + Social History + +-------+ [...] + + + | Blood Pressure | 130/58 | 01/08/2015 10:31 AM | | | | | PDT | | + + + + + | Pulse | 72 | 01/08/2015 10:31 AM | | | | | PDT | | + + + + + | Temperature | 36.4 C (97.6 F) | 01/08/2015 10:31 AM | | | | | PDT | | + + + + + | Respiratory Rate | - | - | | + + + + + | Oxygen Saturation | 96% | 01/08/2015 10:31 AM | | | | | PDT | | + + + + + | Inhaled Oxygen | - | - | | | Concentration | | | | + + + + + | Weight | 132.9 kg (293 lb) | 01/08/2015 10:31 AM | | | | | PDT | | + + + + + | Height | 193 cm (6' 4") | 01/08/2015 10:31 AM | | | | | PDT | | + + + + + | Body Mass Index | 35.67 | 01/08/2015 10:31 AM | | | | | PDT | | + + + + + documented in this encounter Patient Instructions Patient Instructions Lee Ann Rincon MD - 01/08/2015 2:05 PM PDTNot needed documented in this encounter Progress Notes Lee Ann Rincon MD - 01/08/2015 10:21 AM PDTFormatting of this note might be different fro m the original. Infectious Diseases Clinic Initial Visit PCP: Uday Parra MD; Referring Physician: DELANO Heart Reason for consult: fever HPI: Geoffrey Aguilar is a 54 y.o. male with a PMHx of CAD, REGINA, CKD and chronic pulmonary di sease (Dx as allergies, bronchitis, COPD over the years) and recent admission for fever of u nclear etiology 12/31-01/02. He returns for fever work up. He feels this all began about a month after having a cardiac stent placed in late 2013. He reports the onset of fevers, chills, and BENTLEY at that time. He was admitted to a [facility] (11/02-) where he was diagnosed with ROCCO PNA treated with CTX-->levo. He reports that he had L upper chest pain at that time especially with inspiration and increased BENTLEY along with co ugh+sputum. He had 1 of 2 BCx with S hominis thought to be contaminant. He Sx marginally imp roved with ABx. He reported two fevers over the month of December. During his admission at [facility] he had a CTA which was negative for PE but did show small left effusion. This effusion was too small for thoracentesis. Since discharge from [facility] he reports no fevers. He reports that he feel much better today t fernandez he has over the last several months. He still has some residual fatigue and still has DO E above his baseline. He currently has not inspirational chest pain, sweats, fevers, or chil ls. On extensive questions, these are pertinent positives: -he reports pulmonary/sinus/ear issues, several times per year since childhood, these episo andrew are typically labelled "bronchitis". He reports they typically are worse in winter month s -He has had some orthostasis Sx recently and also what are consistent with vestibular compl ains -he occassionally has "plugged ears" -No rashes -He reports that he lost some weight when ill over the last several months, but is gaining weight back without issue -No orthopnea -No recent trauma, did slip and scrape his left forearm recently ROS: Review of Systems Constitutional: Positive for fever, malaise/fatigue and diaphoresis. Negative for chills an d weight loss. X2 this month, resolved diaphoresis with exertion HENT: Positive for hearing loss. Negative for congestion, ear discharge, ear pain, noseblee ds, sore throat and tinnitus. Some intermittent ear pain, intermittent :clogged ears" Eyes: Negative for blurred vision, double vision, photophobia, pain, discharge and redness. Respiratory: Positive for sputum production and shortness of breath. Negative for cough, he moptysis, wheezing and stridor. Cardiovascular: Negative for chest pain, palpitations, orthopnea, claudication, leg swellin g and PND. Gastrointestinal: Negative for heartburn, nausea, vomiting, abdominal pain, diarrhea, const ipation, blood in stool and melena. Genitourinary: Negative for dysuria, urgency, frequency and flank pain. Musculoskeletal: Positive for falls. Negative for myalgias, back pain, joint pain and neck pain. Skin: Negative for itching and rash. Neurological: Positive for dizziness. Negative for tingling, tremors, sensory change, speec h change, focal weakness, seizures, loss of consciousness, weakness and headaches. Endo/Heme/Allergies: Negative for environmental allergies and polydipsia. Does not bruise/b leed easily. Psychiatric/Behavioral: Negative for depression. The patient is not nervous/anxious. ABxHx: ~11/02- CTX 11/02- levoflox 11/22-12/31 TMP/SMX CxHx: 11/02 BCxx2 05/04 STHO 11/06 SpCx NG 12/28 BCxx2 NG 01/01 BCxx2 05/04 CoNS 01/04 BCxx2 () pending MEDICATIONS: Current Outpatient Prescriptions Medication Sig acetaminophen 325 mg oral tablet Take 1-2 tablets by mouth every four hours as needed. Indications: FEVER, HEADACHE DISORDER albuterol 90 mcg/actuation inhalation HFA aerosol inhaler Inhale 1-2 puffs every four h ours as needed. amLODIPine 10 mg oral tablet [...] hr Take 50 mg by mouth once daily. mometasone 220 mcg (14 doses) inhalation aerosol powdr breath activated Inhale 2 puffs two times daily. nitroglycerin 0.4 mg sublingual tablet, sublingual Place 0.4 mg under tongue every five minutes as needed for chest pain. Place under tongue and allow to dissolve. Administer chapin ry 5 minutes, max of 3 doses in 15 minutes. spironolactone 50 mg oral tablet Take 50 mg by mouth once daily. valsartan 160 mg oral tablet Take 320 mg by mouth once daily. No current facility-administered medications for this visit. PMHx: Patient Active Problem List Diagnosis Pleural effusion Coronary artery disease s/p stenting 2014 Hyperlipidemia Essential hypertension CKD (chronic kidney disease), stage III Mild persistent asthma Reports some type of hepatitis in while in [place] after swimming in a river. 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 They have been >30 years. He generally is picking up and droppi ng loads in [facility] and [place] and travels within [place], [place] and [place]. He has not been to . Tobacco: 10pyHx ending 30 years ago. UNtil recently used ~1 can chew daily. Heavy second-arias nd smoke exposure EtOH: none currently, prior intermittently Drug: never IVDU Travel: no recent, was in miliary in [place] in Pets: Healthy dog and cat. Cat 1 year old, got as a kitten. Exposures/work/past work: No cat bites or scratches recently recalled. No farm animals. Has never known anyone with TB. No incarceration (brief visit to custodial decades ago). No homeless ness or exposure to homeless populations. No known tick bites. FHX: Breast CA DMII Physical Exam: Latest VS: There were no vitals taken for this visit. General Appearance: NAD in chair, pleasant AAO HEENT: EOMI, glasses, no icterus, PERRL, no splinters Neck: supple, no LAD Respiratory: CTA Cardiovascular: S1S2 RRR no murmur, occasional PVC Gastrointestinal: +BS, NT, ND, no pain with palp Musculoskeletal: no erythema or effusion at joints. No Rash. Normal muscle tone. He has no stigmata of IE on fingers or nails Skin: no rash. Small shallow skin break on left wrist. Neurologic: Good strength grossly. No gross sensory deficits Psychiatric: no affect, AAO Data: 01/03 CrAg Negative 11/14 IgG 1-4 Normal except IgG3 marginally low (7) ot IgGs normal 01/03 BCxx2 NGTD @3 days checked 01/08 13:58 01/04 Labs with PCP: Cr=1.38 otherwise CMP WNL HCT=35, Hgb=12, WBC=9.5, tzk=692 N58%, noted eos=6.6% UA unremarkable, no proteinuria ANCAs, GUNNAR, and SPEP pending Lab Results Component Value Date ESR 27* 12/31/2014 Lab Results Component Value Date CRP <2.9 12/31/2014 IMAGIN/1 CTA No pulmonary embolism. Small layering left pleural effusion with minimal adjacent atelectasis. Lungs otherwise clear 11/02 OSH TTE: No vegetation. Bilaterial atrial dilation Problem List: 780.60 Fever in adult 585.3 CKD (chronic kidney disease) stage 3, GFR 30-59 ml/min Assessment and Plan: Geoffrey Aguilar, who is a 54 y.o. male with a PMHx of above with interm ittent fevers, and exertional dyspnea after a bought of apparent PNA in October. He was noted a t his last admission, 12/31-01/02 at [facility], to have a small pleural effusion which was too small to sample. Since Dc has has improved and fevers have resolved. He has had two set of BCx (o ne in October and one December) which grew 1 of 2 CoNS. He has had intervening BCx that were nega tive and has a set pending from 01/04. I suspect these are contaminants and do not suspect sub -acute endocarditis, but repeat Cx pending will be telling. 11/02 TTE negative and repeat TTE ordered by PCP. The origin of his prior fever is unclear and it may have been related to his PNA/effusion. Other infection etiologies of FUP would be TB, abscess (dental or hepatic), osteomyelitis, e ndemic fungal disease or culture negative endocarditis (either from prior ABx or true Cx neg ative entities like bartonella, brucella, and toxo). He has no evidence of dental disease an d has no abd Sx and I would anticipate hepatic abscess would not spontaneously improve. He h as no known TB risk. No has no known brucella risk. There is now known to be cocci in [place] and he does have a cat which would be a bartonella risk. Other non infection etiologies (connective tissue dz or neoplastic) are possible, but less likely to resolve spontaneously. He has GUNNAR, ANCA, SPEP pending. Neoplastic process is possi ble, but he is not losing weight and fevers are not gone. His report of recurrent respiratory illnesses (including PNA, bronchitis, sinus infections and ear infections) since childhood is interesting and brings up the possibility of immunode ficiency. 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 Acquired immune deficiency should be tested. Cornelia mendoza should re-establish with a clinical applications specialist. His mild eosinophilia could represent a c hronic allergic process like ABPA, although this seems unlikely. His vestibular Sx (which appear intermittent) could theoretically be a result of neurosyphi lis, although he reports being a low risk. Finally, while unlikely related, he reports being told of hepatitis while in [place] and he is unclear which type. His WBC has normalized and HCT is up-trending on repeat labs 01/04. Plan: -HIV screen -RPR -Quantiferon Gold TB -bartonella sero -cocci CF -Hep C Ab, HepBsAb, HepBcAb, HepAAb -IgA, IgE, IgM -follow up in [place] [address] 01/03 -would re-establish with a fire hydrant mechanic, as I suspect a chronic underlying pulm process th at is not clearly diagnosed at this point -agree with planned repeat TTE (after initial negative October 2014) -await GUNNAR, ANCA, SPEP -will call next week with results -RTC TBD Orders Placed This Encounter HIV-1,2 AB/HIV-1 P24 AG SCRN, SERUM RPR SERUM QUANTIFERON TB GOLD, BLOOD HEPATITIS C AB W/CONFIRMATION REFLEX PCR HEPATITIS B CORE AB, SERUM HEPATITIS B SURFACE AB QUAL, SERUM HEPATITIS A AB SCREEN, SERUM BARTONELLA HENSELAE AB:IGG,IGM, SERUM COCCIDIOIDES AB BY CF,SER IGE TOTAL, SERUM IGM, SERUM IGA, SERUM I spent 75 minutes with Geoffrey Aguilar of which 50% was [id number] discussion of diagnos is, treatment and risks. LEE ANN RINCON MD Infectious Diseases [facility] Pager: [phone] documented in this en counter Plan of Treatment Not on filedocumented as of this encounter Results IGA, SERUM (01/08/2015 12:00 PM PDT) + +-------+ + + + | Component | Value | Ref Range | Performed | Pathologist | | | | | At | Signature | + +-------+ + + + | IGA SERUM | 218 | 70 - 400 mg/dL | [facility] | | | | | | [facility] | | | | | | [place] | | + +-------+ + + + + + | Specimen | + + | Blood - Blood | + + + + + + + | Performing | Address | City/State/Zipcode | Phone Number | | Organization | | | | + + + + + | [facility] | [address] | [place] [address] | | | [place] | | | | + + + + + IGM, SERUM (01/08/2015 12:00 PM PDT) + +-------+ + + + | Component | Value | Ref Range | Performed | Pathologist | | | | | At | Signature | + +-------+ + + + | IGM SERUM | 81 | 40 - 230 mg/dL | [facility] | | | | | | [facility] | | | | | | [place] | | + +-------+ + + + + + | Specimen | + + | Blood - Blood | + + + + + + + | Performing | Address | City/State/Zipcode | Phone Number | | Organization | | | | + + + + + | [facility] | [address] | [place] [address] | | | [place] | | | | + + + + + IGE TOTAL, SERUM (01/08/2015 12:00 PM PDT) + +-------+ + + + | Component | Value | Ref Range | Performed | Pathologist | | | | | At | Signature | + +-------+ + + + | IGE TOTAL, | 12 | 0 - 120 kU/L | [facility] | | | SERUM | | | LABORATORY | | | | | | SERVICES, | | | | | | SPECIAL IMM | | | | | | + COAG | | + +-------+ + + + + + | Specimen | + + | Blood - Blood | | (substance) | + + + + + + + | Performing | Address | City/State/Zipcode | Phone Number | | Organization | | | | + + + + + | [facility] | [address] | [place] [address] | | | SERVICES, SPECIAL | [address] | | | | IMM + COAG | | | | + + + + + COCCIDIOIDES AB BY CF,SER (01/08/2015 12:00 PM PDT) + + + + + + | Component | Value | Ref Range | Performed | Pathologist | | | | | At | Signature | + + + + + + | COCCIDIOIDE | Negative | Negative | [facility] | | | S AB | | | REFERENCE | | | INTERP, | | | LAB | | | SERUM | | | | | + + + + + + + + | Specimen | + + | Blood - Blood | + + + + + | Narrative | Performed At | + + + | If onset of | [facility] | | illness has been within the past 4 weeks you may wish to follow up | REFERENCE LAB | | with another specimen in 2 to 3 weeks. Test performed by: | | | [facility] | | | Coccidioidomycosis [facility] | | | [facility] Nadiya Leary [address] [place], [place] | | | [phone] | | |[place] [address] | | |[phone] | | | | | | | | | | | | | | + + + + + + + + | Performing | Address | City/State/Zipcode | Phone Number | | Organization | | | | + + + + + | [facility] | | | | + + + + + | [facility] | see below | | | + + + + + BARTONELLA HENSELAE AB:IGG,IGM, SERUM (01/08/2015 12:00 PM PDT) + + + + + + | Component | Value | Ref Range | Performed | Pathologist | | | | | At | Signature | + + + + + + | B.HENSELAE | <1:64Comment: | | [facility] | | | IGG AB, | INTERPRETIVE | | REG UNIV | | | SERUM | INFORMATION: Bartonella | | PTH - INTFC | | | | henselae Ab, IgG Less | | | | | | than 1:64 ....... | | | | | | Negative: No significant | | | | | | level of | | | | | | | | | | | | Bartonella henselae IgG | | | | | | antibody | | | | | | | | | | | | detected. 1:64 - 1:128 | | | | | | ......... Equivocal: | | | | | | Questionable presence | | | | | | | | | | | | of Bartonella | | | | | | henselae IgG | | | | | | | | | | | | antibody detected. | | | | | | Repeat testing | | | | | | | | | | | | in 10-14 days may be | | | | | | helpful. 1:256 or | | | | | | greater ..... Positive: | | | | | | Presence of IgG | | | | | | | | | | | | antibody to | | | | | | Bartonella henselae | | | | | | | | | | | | detected, | | | | | | suggestive of current | | | | | | | | | | | | or past | | | | | | infection. A low | | | | | | positive suggests past | | | | | | exposure or infection, | | | | | | while high positive | | | | | | results may indicate | | | | | | recent or current | | | | | | infection, but are | | | | | | inconclusive for | | | | | | diagnosis. | | | | | | Seroconversion between | | | | | | acute and convalescent | | | | | | sera is considered | | | | | | strong evidence of | | | | | | recent infection. The | | | | | | best evidence for | | | | | | infection is significant | | | | | | change on two | | | | | | appropriately timed | | | | | | specimens where both | | | | | | tests are done in the | | | | | | same laboratory at the | | | | | | same time. Test | | | | | | developed and | | | | | | characteristics | | | | | | determined by [facility] | | | | | | [facility]. See | | | | | | Compliance Statement A: | | | | | | [email or web address] | | | | + + + + + + | B.HENSELAE | < 1:16Comment: | | [facility] | | | IGM AB, | INTERPRETIVE | | REG UNIV | | | SERUM | INFORMATION: Bartonella | | PTH - INTFC | | | | henselae Antibody, IgM | | | | | | Less than 1:16 ...... | | | | | | Negative: No significant | | | | | | level of | | | | | | | | | | | | Bartonella henselae | | | | | | IgM antibody | | | | | | | | | | | | detected. 1:16 or | | | | | | greater ..... Positive: | | | | | | Presence of IgM antibody | | | | | | | | | | | | to | | | | | | Bartonella henselae | | | | | | detected, | | | | | | | | | | | | suggestive of current | | | | | | or recent | | | | | | | | | | | | infection. The | | | | | | presence of IgM | | | | | | antibodies suggest | | | | | | recent infection, low | | | | | | levels of IgM antibodies | | | | | | may occasionally | | | | | | persist for more than 12 | | | | | | months post infection. | | | | | | Test developed and | | | | | | characteristics | | | | | | determined by [facility] | | | | | | [facility]. See | | | | | | Compliance Statement A: | | | | | | [employer]/CSPerformed | | | | | | by [employer],[address] | | | | | [address], [facility] [place] | | | | | | [id number] | | | | | | [phone]. | | | | | | [employer], Reagan Briggs, | | | | | | Aryan LOPEZ. Director | | | | + + + + + + + + | Specimen | + + | Blood - Blood | + + + + + + + | Performing | Address | City/State/[facility] | Phone Number | | Organization | | | | + + + + + | [facility] | [address] | [place], [place] | | | UNIV PTH - INTFC | | [address] | | + + + + + HEPATITIS A AB SCREEN, SERUM (01/08/2015 12:00 PM PDT) + + + + + + | Component | Value | Ref Range | Performed | Pathologist | | | | | At | Signature | + + + + + + | HEPATITIS A | Positive (A)Comment: | Negative | [facility] | | | AB TOTAL | Antibody Pos | | [facility] - | | | | | | [place] | | + + + + + + + + | Specimen | + + | Blood - Blood | + + + + + + + | Performing | Address | City/State/Zipcode | Phone Number | | Organization | | | | + + + + + | [facility] | [address] | [place] [address] | | | [place] | | | | + + + + + HEPATITIS B SURFACE AB QUAL, SERUM (01/08/2015 12:00 PM PDT) + + + + + + | Component | Value | Ref Range | Performed | Pathologist | | | | | At | Signature | + + + + + + | HEP B | Non Reactive | Non Reactive | [facility] | | | SURFACE AB | | | [facility] | | | QUAL, SERUM | | | [place] | | + + + + + + + + | Specimen | + + | Blood - Blood | + + + + + + + | Performing | Address | City/State/Zipcode | Phone Number | | Organization | | | | + + + + + | [facility] | [address] | [place] [address] | | | [facility] | | | | + + + + + HEPATITIS B CORE AB, SERUM (01/08/2015 12:00 PM PDT) + + + + + + | Component | Value | Ref Range | Performed | Pathologist | | | | | At | Signature | + + + + + + | HEPATITIS B | NegativeComment: | Negative | [facility] | | | CORE AB, | Negative | | [facility] | | | SERUM | | | [place] | | + + + + + + + + | Specimen | + + | Blood - Blood | + + + + + + + | Performing | Address | City/State/Zipcode | Phone Number | | Organization | | | | + + + + + | [facility] | [address] | [place] [address] | | | [place] | | | | + + + + + HEPATITIS C AB W/CONFIRMATION REFLEX PCR (01/08/2015 12:00 PM PDT) + + + + + + | Component | Value | Ref Range | Performed | Pathologist | | | | | At | Signature | + + + + + + | HEPATITIS C | NegativeComment: | Negative | [facility] | | | AB | Negative | | [facility] | | | | | | [place] | | + + + + + + + + | Specimen | + + | Blood - Blood | + + + + + + + | Performing | Address | City/State/Zipcode | Phone Number | | Organization | | | | + + + + + | [facility] | [address] | [place] [address] | | | [place] | | | | + + + + + QUANTIFERON TB GOLD, BLOOD (01/08/2015 12:00 PM PDT) + + + + + + | Component | Value | Ref Range | Performed | Pathologist | | | | | At | Signature | + + + + + + | QUANTIFERON | Negative | Negative or | [facility] | | | TB GOLD | | Indeterminate | REFERENCE | | | | | | LAB | | + + + + + + | NIL | 0.07 | IU/mL | [facility] | | | | | | REFERENCE | | | | | | LAB | | + + + + + + | TB AG | 0.07 | IU/mL | [facility] | | | | | | REFERENCE | | | | | | LAB | | + + + + + + | MITOGEN | >=10.00 | IU/mL | [facility] | | | | | | REFERENCE | | | | | | LAB | | + + + + + + | MITOGEN-NIL | >=10.00 | IU/mL | [facility] | | | | | | REFERENCE | | | | | | LAB | | + + + + + + | TB AG-NIL | 0.00 | IU/mL | [facility] | | | | | | REFERENCE | | | | | | LAB | | + + + + + + + + | Specimen | + + | Blood - Blood | + + + + + | Narrative | Performed At | + + + | Interpretation | [facility] | | Criteria for QuantiFERON Testing: Interpretation TB Ag-Nil | REFERENCE LAB | | Nil Mitogen-Nil | | | (IU/mL)* (IU/mL) | | | (IU/mL)* | | | | | | Positive | | | >=0.35 <=8.0 any | | | (and >= 25% of Nil) | | | | | | | | | Negative <0.35 | | | <=8.0 >=0.5 | | | (or <25% of Nil) | | | | | | | | | Indeterminate <0.35 | | | <=8.0 <0.5 | | | (or <25% of Nil) | | | | | | | | | Indeterminate any | | | >8.0 any | | | | | | *Corrected for Nil response. | | | NOTE: Diagnosing or excluding tuberculosis | | | disease, and assessing the probability of LTBI, requires a combination | | | of epidemiological, historical, medical, and | | | diagnostic findings that should be taken into account when | | | interpreting QuantiFERON TB Gold results. | | | See CDC QFT-G Fact | | | Sheet at: | | | http://www.cdc.gov/nchstp/tb/pubs/tbfactssheets/088232.htm | | | Test performed by: [facility] [id number] | | | [address] [place] [address] | | + + + + + + + + | Performing | Address | City/State/Zipcode | Phone Number | | Organization | | | | + + + + + | [facility] | | | | + + + + + | [facility] | see below | | | + + + + + RPR SERUM (01/08/2015 12:00 PM PDT) + + + + + + | Component | Value | Ref Range | Performed | Pathologist | | | | | At | Signature | + + + + + + | RPR SRM | Non-Reactive | Non-Reactive | [facility] | | [facility] | | | [facility] | | | | | | [place] | | + + + + + + + + | Specimen | + + | Blood - Blood | + + + + + + + | Performing | Address | City/State/Zipcode | Phone Number | | Organization | | | | + + + + + | [facility] | [address] | [place] [address] | | | [place] | | | | + + + + + HIV-1,2 AB/HIV-1 P24 AG SCRN, SERUM (01/08/2015 12:00 PM PDT) + + + + + + | Component | Value | Ref Range | Performed | Pathologist | | | | | At | Signature | + + + + + + | HIV-1,2 | Nonreactive | Nonreactive | [facility] | | | AB/HIV-1 | | | LABORATORY | | | P24 AG | | | SERVICES, | | | SCREEN | | | SPECIAL IMM | | | | | | + COAG | | + + + + + + + + | Specimen | + + | Blood - Blood | | (substance) | + + + + + | Narrative | Performed At | + + + | HIV-1 p24 Ag and HIV-1,2 Ab not detected. | [facility] | | | LABORATORY | | | SERVICES, | | | SPECIAL IMM + | | | COAG | + + + + + + + + | Performing | Address | City/State/Zipcode | Phone Number | | Organization | | | | + + + + + | [facility] | [address] | [place] [address] | | | SERVICES, SPECIAL | [address] | | | | IMM + COAG | | | | + + + + + documented in this encounter Visit Diagnoses + + | Diagnosis | + + | Fever in adult - Primary | + + | CKD (chronic kidney disease) stage 3, GFR 30-59 ml/min (HCC) Chronic kidney disease, | | Stage III (moderate) | + + documented in this encounter
--- OUTSIDE RECORDS SUMMARY | ~2019-11-21 | XMS | Encounter Summary ---
Demographics + + + | Address | [address] | | | [place] [address] | + + + | Home Phone | | + + + | Preferred Language | Unknown | + + + | Marital Status | | + + + | Moravian Affiliation | CHR | + + + | Race | White | + + + | Ethnic Group | Not or | + + + Author + + + | Author | [facility] | + + + | Organization | [facility] | + + + | Address | Unknown | + + + | Phone | Unavailable | + + + Support + + + + + | Name | Relationship | Address | Phone | + + + + + | Rabia Bahena | ECON | [address] | | | | | [place] | | | | | [address] | | + + + + + Care Team Providers + +------+ + | Care Pipe Stem Aligner Name | Role | Phone | + [...] | | 12/[facility] [place] | [facility] [place], | | | 01/02/ | | [facility] [place], | [place] [address] | | | 2014 | | [place] [address] | [phone] | | | | | [phone] | | | | | | | Bernardo Booth MD | | | | | | [address] | | | | | | [facility] [place], | | | | | | [place] [address] | | | | | | [phone] | | | | | | | | | | | | Edgardo Coleman | | | | | | MD [facility], | | | | | | Nathaniel Mccain MD [address] | | | | | | [facility] | | | | | | Rd [place], [place] | | | | | | [address] | | | | | | [phone] | | | | | | | [...] PCP wh o recommended he drive to [facility] from [place] due to lack of treatment options in [...] SAMUEL DUBON [address] [place] [address] [place] [address] Who To Call For Problems HOW TO REACH YOUR MEDICINE TEAM WITH QUESTIONS, CONCERNS, OR NEW SYMPTOMS: Thank you for entrusting your care to [facility]. If you have any problems or concerns before you are able to follow up with your Primary Care Provider, please call and ask the bullet charging machine operator to page the attending physician who was caring for you at dis charge (this will be listed in your AfterVisit Summary). If that physician is not availabl e, ask the bullet charging machine operator to page the physician produce production team member for the Clinical Hospitalist Service. Outstanding labs/studies: blood cultures Discharge Summary Completed on: 01/02/2015 Discharging Provider: Luis Snyder PA-C Discharging Attending: MD Luis Quiles PA-C Clinical Hospitalist Service Clinical Instructor Division of Hospital Medicine Department of Medicine [address] 12/uhs31 [place] [address] I spent 46 minutes coordinating care for this patient's discharge, of which 25 minutes were spent [id number] with patient and/or surrogate for counseling and discussing discharge tr eatment plan regarding fevers, pleural effusion, headache and follow up plan. CC to: Primary Care Physician Uday Parra MD [facility] [address] [place] [address] documented in this encounter Discharge Instructions Instructions [...] She and pt just arrived home in [place] and it was after 5pm. Pt did not have any fevers since discharge or and focal infectious signs, however she believes he is not doing well. Recommended she call Dr. Parra first thing in the morning to get orders for a repeat set of blood cultures x 2. If any more cultures return positive, recommended that Geoffrey return to [facility] (she did not want to go to [...] y pt had normal TTE with his info specialist. PCP had discussion with Dr. 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, no international t ravel or travel outside [...] complete work-up as outpt Caitlin Goldstein PA-C #[id number] Attending: Can Jovel MD Clinical Hospitalist Service eyKathrin linda - 12/31/2014 10:49 PM PDTPatient Name: GEOFFREY BAHENA Date of : 1960 CASE MANAGEMENT PROGRESS NOTE UPDATED DISCHARGE PLANNING INFORMATION * Notes: Chart reviewed for otero placement Electronically signed by:Kathrin Montague Position:Automation Control Integrator Pager ID:[phone] Electronically signed on:[id number] signed by Kathrin Montague [...] | | + +---------+ + + | [facility] DEPARTMENT OF | | | | | [...] | + + + + + | [facility] | [address] | [place] [address] | | | SERVICES, CORE | BRYAN [...] | | | LABORATORY | | | [place] | | | SERVICES, | | | [...] | + + + + + | [facility] | [address] | [place] [address] | | | SERVICES, CORE | BRYAN [...] (H) | 60 - 99 mg/dL | [facility] - | | | GLUCOSE, | | [...] [place] | [address] | [place], [place] | | | [facility] | [address] | [address] | | | TESTS | | | [...] + | [facility] | [address] | [place] [address] | | | [place] | | | | + + + [...] [facility] | [address] | [place] [address] | | | RANDA KHAN | BRYAN [...] | + + + + + | [facility] | [address] | [place] [address] | | | SERVICES, CORE | BRYAN [...] | + + + + + | [facility] | [address] | [place] [address] | | | SERVICES, CORE | BRYAN [...] | | | LABORATORY | | | [place] | | | SERVICES, | | | [...] | + + + + + | [facility] | [address] | [place] [address] | | | SERVICES, CORE | BRYAN [...] | | + +---------+ + + | [facility] DEPARTMENT OF | | | | | [...] [place] | [address] | [place], [place] | | | [facility] | [address] | [address] | | | TESTS | | | [...] | + + + + + | [facility] | [address] [facility] | [place] [address] | | | SERVICES, CORE | BRYAN [...] | + + + + + | [facility] | [address] | [place] [address] | | | SERVICES, CORE | BRYAN [...] | + + + + + | [facility] | [address] | [place] [address] | | | SERVICES, | [address] [...] | + + + + + | [facility] | [address] | [place] [address] | | | SERVICES, CORE | BRYAN [...] | | | LABORATORY | | | [place]IAN | | | SERVICES, | | | [...] | + + + + + | [facility] | [address] | [place] [address] | | | SERVICES, CORE | BRYAN [...] [facility] | [address] | [place] [address] | | | SERVICES, CORE | [address] [...] | 10/04/2013. | LABORATORY | | | RNADA KHAN | + + + + + + + + | Performing | Address | City/State/Zipcode | Phone Number | | Organization | | | | + + + + + | [facility] | [address] | [place] [address] | | | RANDA KHAN | BRYAN [...] DEPT OF | [address] | [place], [place] | | | CARDIOLOGY | [address] | [address] | | + + + + + [...] of unspecified | | type of vessel, [place] graft | + + | Hyperlipidemia [...] | | | | | 1 dose, [facility] 01/01/15 at 0215 | | | | [...]
--- OUTSIDE RECORDS SUMMARY | ~2019-11-21 | XMS | Encounter Summary ---
Demographics + + + | Address | [address] | | | [place] [address] | + + + | Home Phone | | + + + | Preferred Language | Unknown | + + + | Marital Status | | + + + | Anglican Affiliation | CHR | + + + | Race | White | + + + | Ethnic Group | Not or | + + + Author + + + | Author | [facility] | + + + | Organization | [facility] | + + + | Address | Unknown | + + + | Phone | Unavailable | + + + Support + + + + + | Name | Relationship | Address | Phone | + + + + + | Rabia Aguilar | ECON | [address] | | | | | [place] | | | | | [address] | | + + + + + Care Team Providers + +------+ + | Care Recording Clerk Name | Role | Phone | + [...] [place] | | | | | | [address] | | | +--------+ + + + [...]
--- OUTSIDE RECORDS SUMMARY | ~2019-11-21 | XMS | Encounter Summary ---
Demographics + + + | Address | [address] | | | [place] [address] | + + + | Home Phone | | + + + | Preferred Language | Unknown | + + + | Marital Status | | + + + | Sikh Affiliation | CHR | + + + | Race | White | + + + | Ethnic Group | Not or | + + + Author + + + | Author | [facility] | + + + | Organization | [facility] | + + + | Address | Unknown | + + + | Phone | Unavailable | + + + Support + + + + + | Name | Relationship | Address | Phone | + + + + + | Rabia Aguilar | ECON | [address] | | | | | [place] | | | | | [address] | | + + + + + Care Team Providers + +------+ + | Care Chocolate Temperer Name | Role | Phone | + +------+ + | Uday Parra MD | PCP | | + +------+ + Encounter Details +--------+ + + + + | Date | Type | Department | Care Team | Description | +--------+ + + + + | 01/04/ | Document-Sc | UNKNOWN DEPARTMENT | Unknown . | | | 2014 | anned | [address] | | | | | | [address] | | | | | | [place] | | | | | | [address] | | | +--------+ + + + [...] + + | LAB REPORTS | | 01/04/2015 | | Results for this | | | | 12:00 AM | | procedure are in the | | | | PDT | | results section. | + +--------+ + + + documented in this encounter Results LAB REPORTS (01/04/2015 12:00 AM PDT) + + + | Narrative | Performed At | + + + | | | + + + documented in this encounter Visit Diagnoses Not on filedocumented in this encounter"
--- OUTSIDE RECORDS SUMMARY | ~2019-11-21 | XMS | Encounter Summary ---
Demographics + + + | Address | [address] | | | [place] [address] | + + + | Home Phone | | + + + | Preferred Language | Unknown | + + + | Marital Status | | + + + | Sikh Affiliation | CHR | + + + | Race | White | + + + | Ethnic Group | Not or | + + + Author + + + | Author | [facility] | + + + | Organization | [facility] | + + + | Address | Unknown | + + + | Phone | Unavailable | + + + Support + + + + + | Name | Relationship | Address | Phone | + + + + + | Rabia Aguilar | ECON | [address] | | | | | [place] | | | | | [address] | | + + + + + Care Team Providers + +------+ + | Care Geology Professor Name | Role | Phone | + +------+ + | Uday Parra MD | PCP | | + +------+ + Encounter Details +--------+ + + + + | Date | Type | Department | Care Team | Description | +--------+ + + + + | 09/24/ | Document-Sc | UNKNOWN DEPARTMENT | Unknown . | | | 2016 | anned | [address] | | | | | | [address] | | | | | | [place] | | | | | | [address] | | | +--------+ + + + [...]
--- OUTSIDE RECORDS SUMMARY | ~2019-11-21 | XMS | Encounter Summary ---
Demographics + + + | Address | [address] | | | [place] [address] | + + + | Home Phone | | + + + | Preferred Language | Unknown | + + + | Marital Status | | + + + | Druze Affiliation | 1013 | + + + | Race | Unknown | + + + | Ethnic Group | Unknown | + + + Author + + + | Author | [facility] | | | and [place] | + + + | Organization | [facility] | | | and [place] | + + + | Address | Unknown | + + + | Phone | Unavailable | + + + Support + + +---------+ + | Name | Relationship | Address | Phone | + + +---------+ + | Rabia Aguilar | ECON | Unknown | | + + +---------+ + Care Team Providers + +------+ + | Care Cargo Station Worker Name | Role | Phone | + +------+ + PCP | Unavailable | + +------+ + Encounter Details +--------+ + + + + | Date | Type | Department | Care Team | Description | +--------+ + + + + | 07/06/ | Hospital | [facility] | Epifanio Shipman | Unspecified Chest | | 2006 - | Encounter | [facility] | [address] | Pain | | | | CLINICAL DECISION | [address] | | | 07/07/ | | [address] | [address] | | | 2006 | | [place], [place] | | | | | | [address] | | | | | | [phone] | | | +--------+ + + + + Social History + +-------+ +--------+------+ | Tobacco Use | Types | Packs/Day | Years | Date | | | | | Used | | + +-------+ +--------+------+ | Never Assessed | | | | | + +-------+ +--------+------+ + + + | Sex Assigned at | Date Recorded | | | | + + + | Not on file | | + + + documented as of this encounter Plan of Treatment Not on filedocumented as of this encounter Visit Diagnoses + + | Diagnosis | + + | Chest pain, unspecified | + + documented in this encounter"
--- OUTSIDE RECORDS SUMMARY | ~2019-11-21 | XMS | Encounter Summary ---
Demographics + + + | Address | [address] | | | [place] [address] | + + + | Home Phone | | + + + | Preferred Language | Unknown | + + + | Marital Status | | + + + | Buddhist Affiliation | CHR | + + + | Race | White | + + + | Ethnic Group | Not or | + + + Author + + + | Author | [facility] | + + + | Organization | [facility] | + + + | Address | Unknown | + + + | Phone | Unavailable | + + + Support + + + + + | Name | Relationship | Address | Phone | + + + + + | Rabia Aguilar | ECON | [address] | | | | | [place] | | | | | [address] | | + + + + + Care Team Providers + +------+ + | Care Senior Sales Director Name | Role | Phone | + [...] [place] | | | | | | [address] | | | +--------+ + + + [...]
--- OUTSIDE RECORDS SUMMARY | ~2019-11-21 | XMS | Encounter Summary ---
Demographics + + + | Address | [address] | | | [place] [address] | + + + | Home Phone | | + + + | Preferred Language | Unknown | + + + | Marital Status | | + + + | Confucianist Affiliation | CHR | + + + | Race | White | + + + | Ethnic Group | Not or | + + + Author + + + | Author | [facility] | + + + | Organization | [facility] | + + + | Address | Unknown | + + + | Phone | Unavailable | + + + Support + + + + + | Name | Relationship | Address | Phone | + + + + + | Rabia Aguilar | ECON | [address] | | | | | [place] | | | | | [address] | | + + + + + Care Team Providers + +------+ + | Care Auricular Therapist Name | Role | Phone | + +------+ + | Uday Parra MD | PCP | | + +------+ + Encounter Details +--------+ + + + + | Date | Type | Department | Care Team | Description | +--------+ + + + + | 12/31/ | Document-Sc | UNKNOWN DEPARTMENT | Unknown . | | | 2014 | anned | [address] | | | | | | [address] | | | | | | [place] | | | | | | [address] | | | +--------+ + + + [...] + + | LAB REPORTS | | 12/31/2014 | | Results for this | | | | 12:00 AM | | procedure are in the | | | | PDT | | results section. | + +--------+ + + + documented in this encounter Results LAB REPORTS (12/31/2014 12:00 AM PDT) + + + | Narrative | Performed At | + + + | | | + + + documented in this encounter Visit Diagnoses Not on filedocumented in this encounter"
--- OUTSIDE RECORDS SUMMARY | ~2019-11-21 | XMS | Encounter Summary ---
Demographics + + + | Address | [address] | | | [place] [address] | + + + | Home Phone | | + + + | Preferred Language | Unknown | + + + | Marital Status | | + + + | [employer] Affiliation | 1013 | + + + | Race | Unknown | + + + | Ethnic Group | Unknown | + + + Author + + + | Author | Located Within [facility] | | | and [place] | + + + | Organization | Located Within [facility] | | | and [...] Team Providers + +------+ + | Care Metallurgical Analyst Name | Role | Phone | + +------+ + | Uday Parra MD | PCP | | + +------+ + Encounter Details +--------+ + + + + | Date | Type | Department | Care Team | Description | +--------+ + + + + | 04/24/ | Orders Only | [facility] | Jhoan Corona MD | | | 2013 | | CARDIOLOGY [place] | [address] | | | | | [address] | [place] [address] | | | | | [place], [place] | [phone] | | | | | [address] | | | | | | [phone] | | | +--------+ + + + + Social History + +-------+ +--------+------+ | Tobacco Use | Types | Packs/Day | Years | Date | | | | | Used | | + +-------+ +--------+------+ | Former Smoker | | 1.5 | | | + +-------+ +--------+------+ + [...] | + +--------+ + + + | CV CARDIAC PROCEDURE | Routin | 04/24/2014 | | Results for this | | | e | 1:34 PM | | procedure are in the | | | | PST | | results section. | + +--------+ + + + documented in this encounter Results CV CARDIAC PROCEDURE (04/24/2014 1:34 PM PST) + + | Specimen | + + | | + + + + + | Narrative | Performed At | + + + | | | | | | | BRIEF HISTORY Mr. Aguilar is a 53-year-old male with a | | | history of previous stenting of the right coronary artery, obesity | | | and hyperlipidemia who presented with recurrent chest pain and was | | | referred for coronary angiography and possible coronary intervention. | | | For details regarding history of presentation, kindly refer to | | | Andres's note. PROCEDURES 1. Radial artery approach. 2. Selective | | | coronary angiography. 3. Left heart catheterization with left | | | ventriculogram. 4. Pressure wire study of mid circumflex. 5. Primary | | | stenting of large marginal branch with a 3.0 x 12 mm Promus Premier | | | drug-eluting stent. DESCRIPTION OF PROCEDURE The patient was | | | brought to the catheterization lab in the fasting state. He was | | | prepped and draped in the usual sterile fashion for right radial | | | artery approach. Access was obtained via right radial artery after | | | [place] test was found to be negative. A 6-Chadian right radial artery | | | Glidesheath was then advanced. A cocktail of heparin, verapamil and | | | nitroglycerin was injected via the introducer. Using a Wholey wire, a | | | 6-Chadian JL4 catheter was advanced to the ascending aorta and | | | engaged with the ostium of the left main. Projections of the left | | | coronary system were done with the use of contrast injections. Using | | | a long exchange wire, the JL4 catheter was exchanged to a 6-Chadian | | | JR4 catheter which was engaged with the ostium of the right coronary | | | artery. Projections of the right coronary artery were done with the | | | use of contrast injections. The catheter was then exchanged over a | | | long exchange wire to a 6-Chadian pigtail catheter which was advanced | | | to the left ventricle, and projections of the left ventricular | | | systolic function were done with the use of contrast injections. All | | | equipment was then removed. FINDINGS 1. Contrast used: 155 mL. | | | 2. Hemodynamics: Aortic pressure 129/62 with a mean of 52. LV 123/0 | | | with end diastolic of 17. CORONARY ANGIOGRAPHY Coronary system | | | was right dominant. 1. Left main bifurcated into the LAD and left | | | circumflex. The left main was free of disease. 2. Left anterior | | | descending artery has mild calcification proximally, but there was no | | | significant atherosclerosis in the lumen of the LAD. The diagonal | | | branches were free of disease. 3. Left circumflex coronary artery has | | | what appears to be moderate calcification in the mid vessel. After | | | that, it gives rise to a very large marginal branch that has a focal | | | 80% to 90% lesion. The rest of that vessel is free of disease. The | | | circumflex continues into the AV-groove with no significant disease. | | | 4. Right coronary artery was a large dominant vessel. There appears | | | to be minimal in-stent restenosis in the distal RCA. LEFT | | | VENTRICULOGRAM A left ventriculogram in the CARRILLO view showed normal | | | left ventricular ejection fraction estimated to be around 60%. | | | PRESSURE WIRE STUDY The patient has 2 lesions in the left circumflex | | | territory. The first one is in the feqfiydl-xq-aie circumflex and the | | | second one which appears to be very severe is located in the large | | | marginal branch. The question was whether he needed to have his left | | | circumflex lesion stented/hemodynamically significant. With that, I | | | proceeded with a pressure wire study on that lesion. A JL-3.5 | | | catheter was advanced and engaged with the ostium of the left main | | | and heparin was given. Pressure wire was navigated into the left | | | circumflex after it was normalized in the left main. The pressure | | | wire was advanced to the marginal branch, but the pressure | | | measurement position was before the marginal lesion. The pressure | | | wire was then measured across the left circumflex lesion with | | | administration of adenosine at 140 mcg/kg for a minute. The lowest FFR | | | was 0.89 indicating hemodynamically insignificant left circumflex | | | lesion. With that, the wire was then advanced distally in the | | | marginal branch across the severe focal lesion. A 3.0 x 12 mm Promus | | | Premier drug-eluting stent was then used to successfully stent the | | | focal area with excellent result. Interestingly, the patient's chest | | | discomfort resolved almost immediately after stenting that lesion. | | | There were no significant complications. CONCLUSIONS AND | | | RECOMMENDATIONS 1. Chest pain. 2. Two-vessel coronary artery disease | | | with 20% to 30% in-stent restenosis in the right coronary artery, | | | moderate lesion in the circumflex and severe focal lesion in the | | | marginal branch. 3. Normal left ventricular systolic function. 4. | | | Status post pressure wire study of the mid left circumflex lesion | | | which appears to be hemodynamically insignificant. 5. Stenting of | | | the marginal branch focal severe lesion with a 3.0 x 12 mm Promus | | | Premier drug-eluting stent. 6. The patient will continue to need | | | aggressive medical therapy. Read by JHOAN CORONA MD 04/26/2014 | | | 07:50 A | | | 2:39 PM | | + + + + + | Procedure Note | + + | Oscar Angelo Conversion - 12/23/2018 10:11 AM PDT | | | | BRIEF HISTORY | | Mr. Aguilar is a 53-year-old male with a history of previous | | stenting of the right coronary artery, obesity and hyperlipidemia who | | presented with recurrent chest pain and was referred for coronary | | angiography and possible coronary intervention. For details regarding | | history of presentation, kindly refer to Dr. Campos's note. | | | | PROCEDURES | | 1. Radial artery approach. | | 2. Selective coronary angiography. | | 3. Left heart catheterization with left ventriculogram. | | 4. Pressure wire study of mid circumflex. | | 5. Primary stenting of large marginal branch with a 3.0 x 12 mm Promus | | Premier drug-eluting stent. | | | | DESCRIPTION OF PROCEDURE | | The patient was brought to the catheterization lab in the fasting state. | | He was prepped and draped in the usual sterile fashion for right radial | | artery approach. Access was obtained via right radial artery after [place] | | test was found to be negative. A 6-Chadian right radial artery Glidesheath | | was then advanced. A cocktail of heparin, verapamil and nitroglycerin was | | injected via the introducer. Using a Wholey wire, a 6-Chadian JL4 catheter | | was advanced to the ascending aorta and engaged with the ostium of the | | left main. Projections of the left coronary system were done with the use | | of contrast injections. Using a long exchange wire, the JL4 catheter was | | exchanged to a 6-Chadian JR4 catheter which was engaged with the ostium of | | the right coronary artery. Projections of the right coronary artery were | | done with the use of contrast injections. The catheter was then exchanged | | over a long exchange wire to a 6-Chadian pigtail catheter which was | | advanced to the left ventricle, and projections of the left ventricular | | systolic function were done with the use of contrast injections. All | | equipment was then removed. | | | | FINDINGS | | 1. Contrast used: 155 mL. | | 2. Hemodynamics: Aortic pressure 129/62 with a mean of 52. LV 123/0 with | | end diastolic of 17. | | | | CORONARY ANGIOGRAPHY Coronary system was right dominant. | | | | 1. Left main bifurcated into the LAD and left circumflex. The left main | | was free of disease. | | 2. Left anterior descending artery has mild calcification proximally, but | | there was no significant atherosclerosis in the lumen of the LAD. | | The diagonal branches were free of disease. | | 3. Left circumflex coronary artery has what appears to be moderate | | calcification in the mid vessel. After that, it gives rise to a very | | large marginal branch that has a focal 80% to 90% lesion. The rest | | of that vessel is free of disease. The circumflex continues into the | | AV-groove with no significant disease. | | 4. Right coronary artery was a large dominant vessel. There appears to be | | minimal in-stent restenosis in the distal RCA. | | | | LEFT VENTRICULOGRAM | | A left ventriculogram in the CARRILLO view showed normal left ventricular | | ejection fraction estimated to be around 60%. | | | | PRESSURE WIRE STUDY | | The patient has 2 lesions in the left circumflex territory. The first one | | is in the vhzwbnuv-nz-odz circumflex and the second one which appears to | | be very severe is located in the large marginal branch. The question was | | whether he needed to have his left circumflex lesion | | stented/hemodynamically significant. With that, I proceeded with a | | pressure wire study on that lesion. A JL-3.5 catheter was advanced and | | engaged with the ostium of the left main and heparin was given. Pressure | | wire was navigated into the left circumflex after it was normalized in the | | left main. The pressure wire was advanced to the marginal branch, but the | | pressure measurement position was before the marginal lesion. The pressure | | wire was then measured across the left circumflex lesion with | | administration of adenosine at 140 mcg/kg for a minute. The lowest FFR was | | 0.89 indicating hemodynamically insignificant left circumflex lesion. With | | that, the wire was then advanced distally in the marginal branch across | | the severe focal lesion. A 3.0 x 12 mm Promus Premier drug-eluting stent | | was then used to successfully stent the focal area with excellent result. | | Interestingly, the patient's chest discomfort resolved almost immediately | | after stenting that lesion. There were no significant complications. | | | | CONCLUSIONS AND RECOMMENDATIONS | | 1. Chest pain. | | 2. Two-vessel coronary artery disease with 20% to 30% in-stent restenosis | | in the right coronary artery, moderate lesion in the circumflex and | | severe focal lesion in the marginal branch. | | 3. Normal left ventricular systolic function. | | 4. Status post pressure wire study of the mid left circumflex lesion which | | appears to be hemodynamically insignificant. | | 5. Stenting of the marginal branch focal severe lesion with a 3.0 x 12 mm | | Promus Premier drug-eluting stent. | | 6. The patient will continue to need aggressive medical therapy. | | | | Read by JHOAN CORONA MD 04/26/2014 07:50 A | | | | | + + documented in this encounter Visit Diagnoses Not on filedocumented in this encounter"
--- OUTSIDE RECORDS SUMMARY | ~2019-11-21 | XMS | Encounter Summary ---
Demographics + + + | Address | [address] | | | [place] [address] | + + + | Home Phone | | + + + | Preferred Language | Unknown | + + + | Marital Status | | + + + | Holiness Affiliation | CHR | + + + | Race | White | + + + | Ethnic Group | Not or | + + + Author + + + | Author | [facility] | + + + | Organization | [facility] | + + + | Address | Unknown | + + + | Phone | Unavailable | + + + Support + + + + + | Name | Relationship | Address | Phone | + + + + + | Rabia Aguilar | ECON | [address] | | | | | [place] | | | | | [address] | | + + + + + Care Team Providers + +------+ + | Care Clinical Technician Name | Role | Phone | + +------+ + | Uday Parra MD | PCP | | + +------+ + Encounter Details +--------+ + + + + | Date | Type | Department | Care Team | Description | +--------+ + + + + | 05/27/ | Document-Sc | UNKNOWN DEPARTMENT | Unknown . | | | 2016 | anned | [address] | | | | | | [address] | | | | | | [place] | | | | | | [address] | | | +--------+ + + + [...] + + | LAB REPORTS | | 05/27/2015 | | Results for this | | | | 12:00 AM | | procedure are in the | | | | PST | | results section. | + +--------+ + + + documented in this encounter Results LAB REPORTS (05/27/2015 12:00 AM PST) + + + | Narrative | Performed At | + + + | | | + + + documented in this encounter Visit Diagnoses Not on filedocumented in this encounter"
--- OUTSIDE RECORDS SUMMARY | ~2019-11-21 | XMS | Encounter Summary ---
Demographics + + + | Address | [address] | | | [place] [address] | + + + | Home Phone | | + + + | Preferred Language | Unknown | + + + | Marital Status | | + + + | Episcopalian Affiliation | CHR | + + + | Race | White | + + + | Ethnic Group | Not or | + + + Author + + + | Author | [facility] | + + + | Organization | [facility] | + + + | Address | Unknown | + + + | Phone | Unavailable | + + + Support + + + + + | Name | Relationship | Address | Phone | + + + + + | Rabia Aguilar | ECON | [address] | | | | | [place] | | | | | [address] | | + + + + + Care Team Providers + +------+ + | Care Customer Success Intern Name | Role | Phone | + [...] Floor | | | | | | [place], [place] | | | | | | [address] | | | | | | [phone] | | | +--------+ + + + [...]
--- OUTSIDE RECORDS SUMMARY | ~2019-11-21 | XMS | Encounter Summary ---
Demographics + + + | Address | [address] | | | [place] [address] | + + + | Home Phone | | + + + | Preferred Language | Unknown | + + + | Marital Status | | + + + | Mormon Affiliation | CHR | + + + | Race | White | + + + | Ethnic Group | Not or | + + + Author + + + | Author | [facility] | + + + | Organization | [facility] | + + + | Address | Unknown | + + + | Phone | Unavailable | + + + Support + + + + + | Name | Relationship | Address | Phone | + + + + + | Rabia Aguilar | ECON | [address] | | | | | [place] | | | | | [address] | | + + + + + Care Team Providers + +------+ + | Care Gym Supervisor Name | Role | Phone | + +------+ + | Uday Parra MD | PCP | | + +------+ + Encounter Details +--------+------+ + + + | Date | Type | Department | Care Team | Description | +--------+------+ + + + | 07/25/ | Lab | Laboratory at [facility] | | Pleural effusion | | 2015 | | [address] | | | | | | [facility] | | | | | | [place], [address] [place] [address] | | | | | | [place], [place] | | | | | | [address] | | | | | | [phone] | | | +--------+------+ + + + Social History + +-------+ [...] | + +--------+ + + + | GUNNAR BY SHIVANI | Routin | 07/26/2015 | Pleural effusion | Results for this | | W/REFLEX TO IFA | e | 10:10 AM | | procedure are in the | | PATTERN & AB ID WHEN | | PDT | | results section. | | INDICATED | | | | | + +--------+ + + + | C'4 COMPLEMENT, | Routin | 07/26/2015 | Pleural effusion | Results for this | | SERUM | e | 10:10 AM | | procedure are in the | | | | PDT | | results section. | + +--------+ + + + | IGM, SERUM | Routin | 07/26/2015 | Pleural effusion | Results for this | | | e | 10:10 AM | | procedure are in the | | | | PDT | | results section. | + +--------+ + + + | IGG, SERUM | Routin | 07/26/2015 | Pleural effusion | Results for this | | | e | 10:10 AM | | procedure are in the | | | | PDT | | results section. | + +--------+ + + + | IGA, SERUM | Routin | 07/26/2015 | Pleural effusion | Results for this | | | e | 10:10 AM | | procedure are in the | | | | PDT | | results section. | + +--------+ + + + | C'3 COMPLEMENT, | Routin | 07/26/2015 | Pleural effusion | Results for this | | SERUM | e | 10:10 AM | | procedure are in the | | | | PDT | | results section. | + +--------+ + + + | ANTI NEUTROPHIL | Routin | 07/26/2015 | Pleural effusion | Results for this | | CYTOPLASMIC AB SCN, | e | 10:10 AM | | procedure are in the | | SERUM | | PDT | | results section. | + +--------+ + + + documented in this encounter Results IGM, SERUM (07/26/2015 10:10 AM PDT) + +-------+ + + + | Component | Value | Ref Range | Performed | Pathologist | | | | | At | Signature | + +-------+ + + + | IGM SERUM | 142 | 40 - 230 mg/dL | [facility] [...] | + + + + + | [facility] | [address] | [place] [address] | | | [place] | | | | + + + + + IGA, SERUM (07/26/2015 10:10 AM PDT) + +-------+ + + + | Component | Value | Ref Range | Performed | Pathologist | | | | | At | Signature | + +-------+ + + + | IGA SERUM | 165 | 70 - 400 mg/dL | [facility] | | | [...] | + + + + + | [facility] | [address] | [place] [address] | | | [place] | | | | + + + + + IGG, SERUM (07/26/2015 10:10 AM PDT) + +---------+ + + + | Component | Value | Ref Range | Performed | Pathologist | | | | | At | Signature | + +---------+ + + + | IGG SERUM | 461 (L) | 700 - 1600 | [facility] | | | | | mg/dL | [facility] - | | | | | | [place] | | + +---------+ + + + + + | Specimen | + + | Blood - Blood | + + + + + + + | Performing | Address | City/State/Zipcode | Phone Number | | Organization | | | | + + + + + | [facility] | [address] | [place] [address] | | | [place] | | | | + + + + + ANTI NEUTROPHIL CYTOPLASMIC AB SCN, SERUM (07/26/2015 10:10 AM PDT) + + + + + + | Component | Value | Ref Range | Performed | Pathologist | | | | | At | Signature | + + + + + + | ANCA | <1:20Comment: The ANCA | <1:20 | [facility] | | | -NEUTROPHIL | IFA is <1:20; therefore, | | REG [facility] | | | | no further testing will | | [facility] | | | CYTOPLASMIC | be performed. ANCA IFA | | | | | IGG, SERUM | is < 1:20. No further | | | | | | reflex testing will be | | | | | | performed.INTERPRETIVE | | | | | | INFORMATION: | | | | | | Anti-Neutrophil Cyto Ab, | | | | | | IgG Neutrophil | | | | | | Cytoplasmic Antibodies | | | | | | (C-ANCA = granular | | | | | | cytoplasmic staining, | | | | | | P-ANCA = perinuclear | | | | | | staining) are found in | | | | | | the serum of over 90 | | | | | | percent of patients with | | | | | | certain necrotizing | | | | | | systemic vasculitides, | | | | | | and usually in less than | | | | | | 5 percent of patients | | | | | | with collagen vascular | | | | | | disease or | | | | | | arthritis.Performed by | | | | | | [employer],[address] | | | | | | [address] [facility],[place] | | | | | | [address] | | | | | | [phone][employer]. | | | | | | usha, Reagan Briggs, | | | | | | Aryan LOPEZ. Director | | | | + + + + + + + + | Specimen | + + | Blood - Blood | + + + + + + + | Performing | Address | City/State/Zipcode | Phone Number | | Organization | | | | + + + + + | [facility] | [address] | [place], [place] | | | UN[facility] | | [address] | | + + + + + GUNNAR BY SHIVANI W/REFLEX TO IFA PATTERN & AB ID WHEN INDICATED (07/26/2015 10:10 AM PDT) + + + + + + | Component | Value | Ref Range | Performed | Pathologist | | | | | At | Signature | + + + + + + | ANTI-NUCLEA | None DetectedComment: No | None Detected | [facility] | | | R AB(GUNNAR), | antibodies to | | REG UNIV | | | IGG BY | Anti-Nuclear Antibodies | | [facility] | | | SHIVANI | (GUNNAR) detected. No | | | | | | further testing will be | | | | | | performed.INTERPRETIVE | | | | | | INFORMATION: | | | | | | Anti-Nuclear Antibodies | | | | | | (GUNNAR), IgG by SHIVANI GUNNAR | | | | | | specimens are screened | | | | | | using enzyme-linked | | | | | | immunosorbent assay | | | | | | (SHIVANI) methodology. All | | | | | | SHIVANI results reported | | | | | | as Detected are further | | | | | | tested by indirect | | | | | | fluorescent assay (IFA) | | | | | | using HEp-2 substrate | | | | | | with an IgG-specific | | | | | | conjugate. The GUNNAR SHIVANI | | | | | | screen is designed to | | | | | | detect antibodies | | | | | | against dsDNA, histone, | | | | | | SS-A (Ro), SS-B (La), | | | | | | Quijano, snRNP/Sm, Scl-70, | | | | | | Maribel-1, centromere, and | | | | | | an extract of lysed | | | | | | HEp-2 cells. GUNNAR SHIVANI | | | | | | assays have been | | | | | | reported to have lower | | | | | | sensitivities for | | | | | | antibodies associated | | | | | | with nucleolar and | | | | | | speckled GUNNAR-IFA | | | | | | patterns.Performed by | | | | | | [employer],[address] | | | | | | [address], [facility],[place] | | | | | | [address] | | | | | | [phone][employer]. | | | | | | usha, Reagan Briggs, | | | | | | , Lab. Director | | | | + + + + + + + + | Specimen | + + | Blood - Blood | + + + + + + + | Performing | Address | City/State/Zipcode | Phone Number | | Organization | | | | + + + + + | [facility] | [address] | [place], [place] | | | [facility] | | [address] | | + + + + + C'4 COMPLEMENT, SERUM (07/26/2015 10:10 AM PDT) + +--------+ + + + | Component | Value | Ref Range | Performed | Pathologist | | | | | At | Signature | + +--------+ + + + | C'4 | 13 (L) | 16 - 47 mg/dL | [facility] | | | COMPLEMENT | | | [facility] | | | SERUM | | | [place] | | + +--------+ + + + + + | Specimen | + + | Blood - Blood | + + + + + + + | Performing | Address | City/State/Zipcode | Phone Number | | Organization | | | | + + + + + | [facility] | [address] | [place] [address] | | | [place] | | | | + + + + + C'3 COMPLEMENT, SERUM (07/26/2015 10:10 AM PDT) + +-------+ + + + | Component | Value | Ref Range | Performed | Pathologist | | | | | At | Signature | + +-------+ + + + | C'3 | 138 | 88 - 201 mg/dL | [facility] | | | COMPLEMENT | | | [facility] - | | [...] + | [facility] | [address] | [place] [address] | | | [place] | | | | + + + + + documented in this encounter Visit Diagnoses + + | Diagnosis | + + | Pleural effusion Unspecified pleural effusion | + + documented in this encounter"
--- OUTSIDE RECORDS SUMMARY | ~2019-11-21 | XMS | Encounter Summary ---
Demographics + + + | Address | [address] | | | [place] [address] | + + + | Home Phone | | + + + | Preferred Language | Unknown | + + + | Marital Status | | + + + | Pentecostal Affiliation | CHR | + + + | Race | White | + + + | Ethnic Group | Not or | + + + Author + + + | Author | [facility] | + + + | Organization | [facility] | + + + | Address | Unknown | + + + | Phone | Unavailable | + + + Support + + + + + | Name | Relationship | Address | Phone | + + + + + | Rabia Aguilar | ECON | [address] | | | | | [place] | | | | | [address] | | + + + + + Care Team Providers + +------+ + | Care Geographic Information Systems Engineer Name | Role | Phone | + [...] [place] | | | | | | [address] | | | +--------+ + + + [...]
--- OUTSIDE RECORDS SUMMARY | ~2019-11-21 | XMS | Encounter Summary ---
Demographics + + + | Address | [address] | | | [place] [address] | + + + | Home Phone | | + + + | Preferred Language | Unknown | + + + | Marital Status | | + + + | Sabianism Affiliation | CHR | + + + | Race | White | + + + | Ethnic Group | Not or | + + + Author + + + | Author | [facility] | + + + | Organization | [facility] | + + + | Address | Unknown | + + + | Phone | Unavailable | + + + Support + + + + + | Name | Relationship | Address | Phone | + + + + + | Rabia Aguilar | ECON | [address] | | | | | [place] | | | | | [address] | | + + + + + Care Team Providers + +------+ + | Care Sole Splitter Name | Role | Phone | + +------+ + | Uday Parra MD | PCP | | + +------+ + Encounter Details +--------+ + + + + | Date | Type | Department | Care Team | Description | +--------+ + + + + | 11/03/ | Document-Sc | Health Information | Other, Faculty | | | 2015 | anned | Services [address] | [phone] | | | | | [address] | | | | | | Mailcode: [id number] | | | | | | [facility] | | | | | | [place], [place] | | | | | | [address] | | | | | | [phone] | | | +--------+ + + + [...] + + | LAB REPORTS | | 11/03/2014 | | Results for this | | | | 12:00 AM | | procedure are in the | | | | PDT | | results section. | + +--------+ + + + documented in this encounter Results LAB REPORTS (11/03/2014 12:00 AM PDT) + + + | Narrative | Performed At | + + + | | | + + + documented in this encounter Visit Diagnoses Not on filedocumented in this encounter"
--- OUTSIDE RECORDS SUMMARY | ~2019-11-21 | XMS | Encounter Summary ---
Demographics + + + | Address | [address] | | | [place] [address] | + + + | Home Phone [...] [place] | | | | | [address] | | + + + + + Care Team Providers + +------+ + | Care Kitchen Steward Name | Role | Phone | + +------+ + | Uday Parra MD | PCP | | + +------+ + Encounter Details +--------+ + + + + | Date | Type | Department | Care Team | Description | +--------+ + + + + | 03/27/ | Document-Sc | UNKNOWN DEPARTMENT | Unknown . | | | 2014 | anned | [address] | | | | | | [address] | | | | | | [place] | | | | | | [address] | | | +--------+ + + + [...]
--- OUTSIDE RECORDS SUMMARY | ~2019-11-21 | XMS | Encounter Summary ---
Demographics + + + | Address | [address] | | | [place] [address] | + + + | Home Phone | | + + + | Preferred Language | Unknown | + + + | Marital Status | | + + + | Druze Affiliation | CHR | + + + | Race | White | + + + | Ethnic Group | Not or | + + + Author + + + | Author | [facility] | + + + | Organization | [facility] | + + + | Address | Unknown | + + + | Phone | Unavailable | + + + Support + + + + + | Name | Relationship | Address | Phone | + + + + + | Rabia Aguilar | ECON | [address] | | | | | [place] | | | | | [address] | | + + + + + Care Team Providers + +------+ + | Care Conservation Coordinator Name | Role | Phone | [...] [place] | | | | | | [address] | | | +--------+ + + + [...]
--- OUTSIDE RECORDS SUMMARY | ~2019-11-21 | XMS | Encounter Summary ---
Demographics + + + | Address | [address] | | | [place] [address] | + + + | Home Phone | | + + + | Preferred Language | Unknown | + + + | Marital Status | | + + + | Denominational Affiliation | CHR | + + + [...] [place] | | | | | [address] | | + + + + + Care Team Providers + +------+ + | Care Soft Work Wrapper Examiner Name | Role | Phone | + +------+ + | Uday Parra MD | PCP | | + +------+ + Encounter Details +--------+ + + + + | Date | Type | Department | Care Team | Description | +--------+ + + + + | 11/06/ | Document-Sc | Health Information | Other, Faculty | | | 2015 | anned | Services [address] | [phone] | | | | | [address] | | | | | | Mailcode: OP17A | | | | | | [facility] | | | | | | [place], [place] | | | | | | [address] | | | | | | [phone] | | | +--------+ + + + [...] + + | LAB REPORTS | | 11/06/2014 | | Results for this | | | | 12:00 AM | | procedure are in the | | | | PDT | | results section. | + +--------+ + + + documented in this encounter Results LAB REPORTS (11/06/2014 12:00 AM PDT) + + + | Narrative | Performed At | + + + | | | + + + documented in this encounter Visit Diagnoses Not on filedocumented in this encounter"
--- OUTSIDE RECORDS SUMMARY | ~2019-11-21 | XMS | Encounter Summary ---
Demographics + + + | Address | [address] | | | [place] [address] | + + + | Home Phone | | + + + | Preferred Language | Unknown | + + + | Marital Status | | + + + | Yazidism Affiliation | CHR | + + + | Race | White | + + + | Ethnic Group | Not or | + + + Author + + + | Author | [facility] | + + + | Organization | [facility] | + + + | Address | Unknown | + + + | Phone | Unavailable | + + + Support + + + + + | Name | Relationship | Address | Phone | + + + + + | Rabia Aguilar | ECON | [address] | | | | | [place] | | | | | [address] | | + + + + + Care Team Providers + +------+ + | Care Advanced Nursing Professor Name | Role | Phone | + +------+ + | Uday Parra MD | PCP | | + +------+ + Encounter Details +--------+ + + + + | Date | Type | Department | Care Team | Description | +--------+ + + + + | 01/04/ | Documentati | Infectious | Tomy Rincon, | | | 2014 | on | [facility] at [facility] | [address] | | | | | [address] | [facility] | | | | | [address] | [address] [place] [address] | | | | | [place], [facility] floor | [phone] | | | | | [place], [place] | | | | | | [address] | | | | | | [phone] | | | +--------+ + + + [...]
--- OUTSIDE RECORDS SUMMARY | ~2019-11-21 | XMS | Encounter Summary ---
Demographics + + + | Address | [address] | | | [place] [address] | + + + | Home Phone | | + + + | Preferred Language | Unknown | + + + | Marital Status | | + + + | Synagogue Affiliation | CHR | + + + | Race | White | + + + | Ethnic Group | Not or | + + + Author + + + | Author | [facility] | + + + | Organization | [facility] | + + + | Address | Unknown | + + + | Phone | Unavailable | + + + Support + + + + + | Name | Relationship | Address | Phone | + + + + + | Rabia Aguilar | ECON | [address] | | | | | [place] | | | | | [address] | | + + + + + Care Team Providers + +------+ + | Care Wind Project Manager Name | Role | Phone | + +------+ + | Uday Parra MD | PCP | | + +------+ + Encounter Details +--------+------+ + + + | Date | Type | Department | Care Team | Description | +--------+------+ + + + | 01/08/ | Lab | [facility] at [facility] | | Fever in adult | | 2015 | | [address] | | | | | | [address] | | | | | | [place], [address] [place] [address] | | | | | | [place], [place] | | | | | | [address] | | | | | | [phone] | | | +--------+------+ + + + [...] | + +--------+ + + + | COCCIDIOIDES AB BY | Routin | 01/08/2015 | Fever in adult | Results for this | | CF,SER | e | 12:00 PM | | procedure are in the | | | | PDT | | results section. | + +--------+ + + + | QUANTIFERON TB GOLD, | Routin | 01/08/2015 | Fever in adult | Results for this | | BLOOD | e | 12:00 PM | | procedure are in the | | | | PDT | | results section. | + +--------+ + + + | BARTONELLA HENSELAE | Routin | 01/08/2015 | Fever in adult | Results for this | | AB:IGG,IGM, SERUM | e | 12:00 PM | | procedure are in the | | | | PDT | | results section. | + +--------+ + + + | IGE TOTAL, SERUM | Routin | 01/08/2015 | Fever in adult | Results for this | | | e | 12:00 PM | | procedure are in the | | | | PDT | | results section. | + +--------+ + + + | HIV-1,2 AB/HIV-1 P24 | Routin | 01/08/2015 | Fever in adult | Results for this | | AG SCRN | e | 12:00 PM | | procedure are in the | | | | PDT | | results section. | + +--------+ + + + | RPR SERUM | Routin | 01/08/2015 | Fever in adult | Results for this | | | e | 12:00 PM | | procedure are in the | | | | PDT | | results section. | + +--------+ + + + | IGM, SERUM | Routin | 01/08/2015 | Fever in adult | Results for this | | | e | 12:00 PM | | procedure are in the | | | | PDT | | results section. | + +--------+ + + + | IGA, SERUM | Routin | 01/08/2015 | Fever in adult | Results for this | | | e | 12:00 PM | | procedure are in the | | | | PDT | | results section. | + +--------+ + + + | HEPATITIS A AB IGM, | Routin | 01/08/2015 | Fever in adult | Results for this | | SERUM | e | 12:00 PM | | procedure are in the | | | | PDT | | results section. | + +--------+ + + + | HEPATITIS B SURFACE | Routin | 01/08/2015 | Fever in adult | Results for this | | AB QUAL, SERUM | e | 12:00 PM | | procedure are in the | | | | PDT | | results section. | + +--------+ + + + | HEPATITIS B CORE AB, | Routin | 01/08/2015 | Fever in adult | Results for this | | SERUM | e | 12:00 PM | | procedure are in the | | | | PDT | | results section. | + +--------+ + + + | HEPATITIS A AB | Routin | 01/08/2015 | Fever in adult | Results for this | | SCREEN, SERUM | e | 12:00 PM | | procedure are in the | | | | PDT | | results section. | + +--------+ + + + | HEPATITIS C VIRUS | Routin | 01/08/2015 | Fever in adult | Results for this | | W/CONFIRMATION | e | 12:00 PM | | procedure are in the | | | | PDT | | results section. | + +--------+ + + + documented in this encounter Results HEPATITIS A AB IGM, SERUM (01/08/2015 12:00 PM PDT) + + + + + + | Component | Value | Ref Range | Performed | Pathologist | | | | | At | Signature | + + + + + + | HEPATITIS A | NegativeComment: | Negative | [facility] | | | AB, IGM | Negative | | [facility] | | | | | | [place] | | + + + + + + + + | Specimen | + + | Blood - Blood | + + + + + | Narrative | Performed At | + + + | Refer Positive Sample to the State | [facility] | | | [facility] | | | [place] | + + + + + + + + | Performing | Address | City/State/Zipcode | Phone Number | | Organization | | | | + + + + + | [facility] | [address] | [place] [address] | | | [place] | | | | + + + + + IGA, SERUM (01/08/2015 12:00 PM PDT) + +-------+ + + + | Component | Value | Ref Range | Performed | Pathologist | | | | | At | Signature | + +-------+ + + + | IGA SERUM | 218 | 70 - 400 mg/dL | [facility] [...] + | [facility] | [address] | [place] [address] | | | [place] | | | | + + + [...] + | [facility] | [address] | [place] [address] | | | [place] | | | [...] + + | [facility] | [address] | [place] [address] | | | SERVICES, SPECIAL | PARK [...] weeks. Test performed by: | | | [facility] | | | Coccidioidomycosis Serology [facility] | | | [facility] Nadiya Leary [address], [place] | | | [phone] | | |[place] [address] | | |[phone] | | | | | | | [...] A: | | | | | | Smartling.Yuanfen~Flow™/CS | | | | + + + [...] | | | | | determined by [facility] | | | | | | Laboratories. See | | | | | | Compliance Statement A: | | | | | | [email or web address]/[email or web address] | | | | | | by [employer],[address] | | | | | | [address], [facility] [place] | | | | | | [address] | | | | | | [phone].Pixelapselab. | | | | | | com, Reagan Briggs, | | | | | [...] + + | [facility] | [address] | [place], [place] | | | [facility] | | [address] | | + + + + + [...] - | | | | | | [facility] | | + + + + + + + + | Specimen | + + | Blood - Blood | + + + + + + + | Performing | Address | City/State/Zipcode | Phone Number | | Organization | | | | + + + + + | [facility] | [address] | [place] [address] | | | [place] | | | [...] + | [facility] | [address] | [place] [address] | | | [place] | | | | + + + [...] + | [facility] | [address] | [place] [address] | | | [place] | | | [...] + | [facility] | [address] | [place] [address] | | | [place] | | | [...] | | Sheet at: | | | http://www.cdc.gov/nchstp/tb/pubs/tbfactssheets/044086.htm | | | Test performed by: [facility] [id number] | | | [address] [address] | | + + + + + [...] + | [facility] | [address] | [place] [address] | | | [place] | | | [...] | | | LABORATORY | | | BILL, | | | SPECIAL IMM + | | | COAG | + + + + + + + + | Performing | Address | City/State/Zipcode | Phone Number | | Organization | | | | + + + + + | [facility] | [address] | [place] [address] | | | SERVICES, SPECIAL | [address] | | | | IMM + COAG | | | | + + + + + documented in this encounter Visit Diagnoses + + | Diagnosis | + + | Fever in adult | + + documented in this encounter"
--- OUTSIDE RECORDS SUMMARY | ~2019-11-21 | XMS | Clinical Summary ---
Demographics + + + | Address | [address] | | | [place] [address] | + + + | Home Phone | | + + + | Preferred Language | Unknown | + + + | Marital Status | | + + + | Scientologist Affiliation | 1013 | + + + | Race | Unknown | + + + | Ethnic Group | Unknown | + + + Author + + + | Author | [facility] | | | and [place] | + + + | Organization | [facility] | | | [...] Providers + +------+ + | Care Senior Administrative Assistant Name | Role | Phone | + +------+ + | Cecily Meza NP | PCP | | + +------+ + Allergies Not on File Medications Not on file Active Problems Not on file Social History + +-------+ +--------+------+ | Tobacco [...] on file | | + + + Last Filed Vital Signs Not on file Plan of Treatment + + + + + | Health Maintenance | Due Date | Last | Comments | | | | Done | | + + + + + | Vaccine: Zoster (1 | | | | | of 2) | 1 | | | + + + + + | Vaccine: Influenza | | | | | (#1) | 0 | | | + + + + + | Vaccine: | | 07/18/19 | | | Dtap/Tdap/Td (2 - | 4 | 14 | | | Td) | | | | + + + + + Results Not on filefrom Last 3 Months Insurance +-------+--------+ +--------+-------+---------+------+ | Payer | Benefi | Subscriber | Effect | Phone | Address | Type | | | t Plan | ID | julieta | | | | | | / | | Dates | | | | | | Group | | | | | | +-------+--------+ +--------+-------+---------+------+ | BCBS | BCBS | [id number] | 05/03/19 | | | PPO | | | OOS | W00 | 16-Pre | | | | | | PPO | | sent | | | | +-------+--------+ +--------+-------+---------+------+ | BCBS | BCBS | [id number] | 05/03/19 | | | PPO | | | OOS | W00 | 16-Pre | | | | | | PPO | | sent | | | | +-------+--------+ +--------+-------+---------+------+ + +--------+ +--------+ + + | Guarantor Name | Accoun | Relation to | Date | Phone | Billing Address | | | t Type | Patient | of | | | | | | | | | | + +--------+ +--------+ + + | Geoffrey Aguilar | Person | Self [birth year] | [address] | | | al/Fam | | 1960 | [phone] | [place] | | | [place] | | | [address] (Home) | [phone] | + +--------+ +--------+ + + | Geoffrey Aguilar | Person | Self [birth year] | [address] | | | al/Fam | | 1960 | [phone] | [place] | | | [place] | | | [address] (Home) | [phone] | + +--------+ +--------+ + + Advance Directives + + + + + | Type | Date Recorded | Patient | Explanation | | | | Certified Medication Aide | | + + + + + | Power of | | | | | Cannoneer | | | | + + + + + | Advance | | | | | Directive | | | | + + + + +"
--- OUTSIDE RECORDS SUMMARY | ~2019-11-21 | XMS | Encounter Summary ---
Demographics + + + | Address | [address] | | | [place] [address] | + + + | Home Phone | | + + + | Preferred Language | Unknown | + + + | Marital Status | | + + + | Jewish Affiliation | CHR | + + + [...] [place] | | | | | [address] | | + + + + + Care Team Providers + +------+ + | Care Line Painting Machine Operator Name | Role | Phone | + +------+ + | Uday Parra MD | PCP | | + +------+ + Encounter Details +--------+ + + + + | Date | Type | Department | Care Team | Description | +--------+ + + + + | 11/02/ | Document-Sc | Health Information | Other, Faculty | | | 2015 | anned | Services [address] | [phone] | | | | | [address] | | | | | | Mailcode: OP17A | | | | | | [facility] | | | | | | [place], [place] | | | | | | [address] | | | | | | [phone] | | | +--------+ + + + [...] + + | LAB REPORTS | | 11/02/2014 | | Results for this | | | | 12:00 AM | | procedure are in the | | | | PDT | | results section. | + +--------+ + + + documented in this encounter Results LAB REPORTS (11/02/2014 12:00 AM PDT) + + + | Narrative | Performed At | + + + | | | + + + documented in this encounter Visit Diagnoses Not on filedocumented in this encounter"
--- OUTSIDE RECORDS SUMMARY | ~2019-11-21 | XMS | Encounter Summary ---
Demographics + + + | Address | [address] | | | [place] [address] | + + + | Home Phone | | + + + | Preferred Language | Unknown | + + + | Marital Status | | + + + | Mormonism Affiliation | 1013 | + + + | Race | Unknown | + + + | Ethnic Group | Unknown | + + + Author + + + | Author | [facility] | | | and [place] | + + + | Organization | [facility] | | | and [...] Team Providers + +------+ + | Care Numerical Control Nesting Operator Name | Role | Phone | + +------+ + | Uday Parra MD | PCP | | + +------+ + Reason for Referral Diagnostic/Screening (Routine) +--------+--------+ + + + + | Status | Reason | Specialty | Diagnoses / | Referred By | Referred To | | | | | Procedures | Contact | Contact | +--------+--------+ + + + + | Closed | | Radiology | Diagnoses | Fidel | | | | | | Abdominal | Uday | | | | | | pain, left | MD Ayan | | | | | | lower | [address] | | | | | | quadrant | [address] | | | | | | Procedures | [place], | | | | | | CT Abdomen | [place] | | | | | | Pelvis w | [address] | | | | | | Contrast | Phone: | | | | | | | [phone] | | | | | | | Fax: | | | | | | | [phone] | | +--------+--------+ + + + + Reason for Visit Diagnostic/Screening (Routine) +--------+--------+ + + + + | Status | Reason | Specialty | Diagnoses / | Referred By | Referred To | | | | | Procedures | Contact | Contact | +--------+--------+ + + + + | Closed | | Radiology | Diagnoses | Fidel, | | | | | | Abdominal | Uday | | | | | | pain, left | MD Ayan | | | | | | lower | [address] | | | | | | quadrant | [address] | | | | | | Procedures | [place], | | | | | | CT Abdomen | [place] | | | | | | Pelvis w | [address] | | | | | | Contrast | Phone: | | | | | | | [phone] | | | | | | | Fax: | | | | | | | [phone] | | +--------+--------+ + + + + Encounter Details +--------+ + + + + | Date | Type | Department | Care Team | Description | +--------+ + + + + | 08/25/ | Hospital | [facility] | Uday Parra | Abdominal pain, left | | 2016 | Encounter | MED CTR [address] | MD Ayan [address] | lower quadrant | | | | [place], | [address] | | | | | [place] [address] | [place] | | | | | [phone] | [address] | | | | | | [phone] | | | | | | | [...] + +--------+ + + + | CT ABDOMEN PELVIS W | Routin | 08/26/2015 | Abdominal pain, | Results for this | | CONTRAST | e | 10:58 AM | left lower quadrant | procedure are in the | | | | PDT | | results section. | + +--------+ + + + documented in this encounter Results CT Abdomen Pelvis w Contrast (08/26/2015 10:58 AM PDT) + + | Specimen | + + | | + + + + + | Narrative | Performed At | + + + | CT ABDOMEN PELVIS W CONTRAST 08/26/2015 10:35 AM HISTORY: Abdomen | [facility] | | pain in left lower quadrant, history of coronary artery disease and | | | diabetes mellitus 2. COMPARISON: None. PROTOCOL: Axial images | | | of the abdomen and pelvis were obtained after administration of 95 mL | | | Omnipaque 350. Coronal and sagittal reformations were acquired. | | | FINDINGS: Heart size is normal. Mild coronary calcifications are | | | seen. There is mild scarring in the left lung base. The liver | | | demonstrates normal parenchyma. The gallbladder is normal. Biliary | | | ducts are unremarkable. The spleen is unremarkable. The pancreas | | | demonstrates normal parenchyma and a normal pancreatic duct. Adrenal | | | glands are normal. The right kidney and visualized ureter are | | | normal. The left kidney and visualized ureter are normal. | | | Stomach, small bowel, and terminal ileum are normal. The appendix has | | | a normal appearance. A few scattered diverticula are noted of the | | | descending colon. There is extensive atherosclerosis of the aorta. | | | Extensive atherosclerosis is seen of the iliac arteries. There is no | | | significant abnormality in the portal veins, mesenteric veins, or | | | systemic veins. No enlarged lymph nodes are visualized within the | | | omentum or retroperitoneum. There is no evidence for ascites or | | | free air. Bladder is normal. Prostate and seminal vesicles are | | | normal. Body wall soft tissue structures are normal. Mild left | | | curvature of the lumbar spine is seen. There is mild spondylosis. S1 | | | is a transitional vertebral body. IMPRESSION - No acute findings. | | | A few scattered diverticula of sigmoid colon with no evidence for | | | diverticulitis. Dictated and Signed by: Giovanni Matute MD | | | Electronically signed: 08/26/2015 12:37 PM | | + + + + + | Procedure Note | + + | Petey, Rad Results In - 08/26/2015 12:[address] ABDOMEN PELVIS W CONTRAST 08/26/2015 | | 10:35 AMHISTORY: Abdomen pain in left lower quadrant, history of coronary artery | | diseaseand diabetes mellitus 2.COMPARISON: None.PROTOCOL: Axial images of the abdomen | | and pelvis were obtained afteradministration of 95 mL Omnipaque 350. Coronal and | | sagittal reformations wereacquired.FINDINGS:Heart size is normal. Mild coronary | | calcifications are seen. There is mildscarring in the left lung base.The liver | | demonstrates normal parenchyma. The gallbladder is normal. Biliaryducts are | | unremarkable.The spleen is unremarkable. The pancreas demonstrates normal parenchyma and | | anormal pancreatic duct. Adrenal glands are normal.The right kidney and visualized | | ureter are normal.The left kidney and visualized ureter are normal.Stomach, small bowel, | | and terminal ileum are normal. The appendix has a normalappearance. A few scattered | | diverticula are noted of the descending colon.There is extensive atherosclerosis of the | | aorta. Extensive atherosclerosis isseen of the iliac arteries. There is no significant | | abnormality in the portalveins, mesenteric veins, or systemic veins. No enlarged lymph | | nodes are visualized within the omentum or retroperitoneum.There is no evidence for | | ascites or free air.Bladder is normal.Prostate and seminal vesicles are normal.Body wall | | soft tissue structures are normal. Mild left curvature of the lumbarspine is seen. | | There is mild spondylosis. S1 is a transitional vertebral body.IMPRESSION -No acute | | findings.A few scattered diverticula of sigmoid colon with no evidence | | fordiverticulitis.Dictated and Signed by: Giovanni Matute MD Electronically signed: | | 08/26/2015 12:37 PM | |The right kidney and visualized ureter are normal. | | | |The left kidney and visualized ureter are normal. | | | |Stomach, small bowel, and terminal ileum are normal. The appendix has a normal | |appearance. A few scattered diverticula are noted of the descending colon. | | | |There is extensive atherosclerosis of the aorta. Extensive atherosclerosis is | |seen of the iliac arteries. There is no significant abnormality in the portal | |veins, mesenteric veins, or systemic veins. | | | |No enlarged lymph nodes are visualized within the omentum or retroperitoneum. | | | |There is no evidence for ascites or free air. | | | |Bladder is normal. | | | |Prostate and seminal vesicles are normal. | | | |Body wall soft tissue structures are normal. Mild left curvature of the lumbar | |spine is seen. There is mild spondylosis. S1 is a transitional vertebral body. | | | |IMPRESSION - | |No acute findings. | | | |A few scattered diverticula of sigmoid colon with no evidence for | |diverticulitis. | | | |Dictated and Signed by: Giovanni Matute MD | | Electronically signed: 08/26/2015 12:37 PM | + + + +---------+ + + | Performing | Address | City/State/[facility] | Phone Number | | Organization | | | | + +---------+ + + | [facility] | | | | + +---------+ + + documented in this encounter Visit Diagnoses + + | Diagnosis | + + | Abdominal pain, left lower quadrant | + + documented in this encounter Administered Medications + +--------+ +--------+------+------+ | Medication Order | MAR | Action | Dose | Rate | Site | | | Action | Date | | | | + +--------+ +--------+------+------+ | iohexol (OMNIPAQUE 350) 350 | Given | 08/26/19 | 95 mLs | | | | mg/mL injection 95 mL 95 mL, | | 16 10:52 | | | | | Intravenous, ONCE PRN, Other, for | | AM PDT | | | | | imaging CT study, Starting Mon | | | | | | | 4/25/16 at 1045, For 1 dose, | | | | | | | Radiology | | | | | | + +--------+ +--------+------+------+ +---+---+ | | | +---+---+ documented in this encounter"
--- OUTSIDE RECORDS SUMMARY | ~2019-11-21 | XMS | Encounter Summary ---
Demographics + + + | Address | [address] | | | [place] [address] | + + + | Home Phone | | + + + | Preferred Language | Unknown | + + + | Marital Status | | + + + | Yazdanism Affiliation | 1013 | + + + | Race | Unknown | + + + | Ethnic Group | Unknown | + + + Author + + + | Author | [facility] | | | and [place] | + + + | Organization | [facility] | | | [...] Team Providers + +------+ + | Care Lap Regulator Name | Role | Phone | + +------+ + | Uday Parra MD | PCP | | + +------+ + Encounter Details +--------+ + + + + | Date | Type | Department | Care Team | Description | +--------+ + + + + | 04/24/ | Orders Only | [facility] | Jhoan Corona MD | | | 2013 | | CARDIOLOGY [place] | [address] | | | | | [address] | [place] [address] | | | | | [place], [place] | [phone] | | | | | [address] | | | | | | [phone] | | | +--------+ + + + [...] test was found to be negative. A 6-New Zealander right radial artery | | | Glidesheath was then advanced. A cocktail of heparin, verapamil and | | | nitroglycerin was injected via the introducer. Using a Wholey wire, a | | | 6-New Zealander JL4 catheter was advanced to the ascending aorta and | | | engaged with the ostium of the left main. Projections of the left | | | coronary system were done with the use of contrast injections. Using | | | a long exchange wire, the JL4 catheter was exchanged to a 6-New Zealander | | | JR4 catheter which was engaged with the ostium of the right coronary | | | artery. Projections of the right coronary artery were done with the | | | use of contrast injections. The catheter was then exchanged over a | | | long exchange wire to a 6-New Zealander pigtail catheter which was advanced | | [...] territory. The first one is in the [id number]-up-odm circumflex and the | | | second [...] test was found to be negative. A 6-New Zealander right radial artery Glidesheath | | was then advanced. A cocktail of heparin, verapamil and nitroglycerin was | | injected via the introducer. Using a Wholey wire, a 6-New Zealander JL4 catheter | | was advanced to the ascending aorta and engaged with the ostium of the | | left main. Projections of the left coronary system were done with the use | | of contrast injections. Using a long exchange wire, the JL4 catheter was | | exchanged to a 6-New Zealander JR4 catheter which was engaged with the ostium of | | the right coronary artery. Projections of the right coronary artery were | | done with the use of contrast injections. The catheter was then exchanged | | over a long exchange wire to a 6-New Zealander pigtail catheter which was | | advanced [...] first one | | is in the jdwwiuwx-ky-pdy circumflex and the second one which appears [...]
--- OUTSIDE RECORDS SUMMARY | ~2019-11-21 | XMS | Encounter Summary ---
Demographics + + + | Address | [address] | | | [place] [address] | + + + | Home Phone | | + + + | Preferred Language | Unknown | + + + | Marital Status | | + + + | Orthodox Affiliation | CHR | + + + | Race | White | + + + | Ethnic Group | Not or | + + + Author + + + | Author | [facility] | + + + | Organization | [facility] | + + + | Address | Unknown | + + + | Phone | Unavailable | + + + Support + + + + + | Name | Relationship | Address | Phone | + + + + + | Rabia Aguilar | ECON | [address] | | | | | [place] | | | | | [address] | | + + + + + Care Team Providers + +------+ + | Care Workers Compensation Claims Assistant Name | Role | Phone | [...] [place] | | | | | | [address] | | | +--------+ + + + [...]
--- OUTSIDE RECORDS SUMMARY | ~2019-11-21 | XMS | Encounter Summary ---
Demographics + + + | Address | [address] | | | [place] [address] | + + + | Home Phone | | + + + | Preferred Language | Unknown | + + + | Marital Status | | + + + | Pentecostalism Affiliation | CHR | + + + | Race | White | + + + | Ethnic Group | Not or | + + + Author + + + | Author | [facility] | + + + | Organization | [facility] | + + + | Address | Unknown | + + + | Phone | Unavailable | + + + Support + + + + + | Name | Relationship | Address | Phone | + + + + + | Rabia Aguilar | ECON | [address] | | | | | [place] | | | | | [address] | | + + + + + Care Team Providers + +------+ + | Care Family Practitioner Name | Role | Phone | + +------+ + | Uday Parra MD | PCP | | + +------+ + Encounter Details +--------+ + + + + | Date | Type | Department | Care Team | Description | +--------+ + + + + | 11/03/ | Document-Sc | Health Information | Other, Faculty | | | 2015 | anned | Services [address] | [phone] | | | | | [address] | | | | | | Mailcode: [id number] | | | | | | [facility] | | | | | | [place], [place] | | | | | | [address] | | | | | | [phone] | | | +--------+ + + + [...]
--- OUTSIDE RECORDS SUMMARY | ~2019-11-21 | XMS | Encounter Summary ---
Demographics + + + | Address | [address] | | | [place] [address] | + + + | Home Phone | | + + + | Preferred Language | Unknown | + + + | Marital Status | | + + + | Episcopal Affiliation | 1013 | + + + | Race | Unknown | + + + | Ethnic Group | Unknown | + + + Author + + + | Author | [facility] | | | and [place] | + + + | Organization | [facility] | | | [...] Team Providers + +------+ + | Care Corner Bead Operator Name | Role | Phone | + +------+ + | Uday Parra MD | PCP | | + +------+ + Encounter Details +--------+ + + + + | Date | Type | Department | Care Team | Description | +--------+ + + + + | 04/29/ | Hospital | [facility] | Wali Fang MD | Chest pain, | | 2017 | Encounter | MED CTR [facility] | [address] | unspecified type; | | | | MEDICINE [address] | [place], [place] | Coronary artery | | | | [place], | [address] | disease, angina | | | | [place] [address] | | presence | | | | [phone] | Manager Account Management, [place] | unspecified, | | | | | | unspecified vessel | | | | | | or lesion type, | | | | | | unspecified whether | | | | | | eek or | | | | | | transplanted heart | +--------+ + + + + Social [...] + + documented as of this encounter Procedure Verenice Paris MD - 04/29/2017 11:16 AM PSTAssociated Order(s): STRESS ECG TREADMILL STRESS TEST REPORT Patient Name: Geoffrey Aguilar Study Date: 04/29/2017 Primary Care Provider: Uday Parra MD : 1960 Age: 56 y.o. Gender: male CLINICAL HISTORY/DIAGNOSIS: Chest pain/CAD EXERCISE TREADMILL STRESS TEST Indication: chest pain/CAD Procedure: The patient exercised using a standard David protocol and walked for 2 minute 0 seconds int o stage III achieving 9.8 METS. Total exercise duration was 8 minutes 0 seconds. Heart rat e increased from 64 beats per minute to 141 beats per minute which is 85 % of the maximal pr edicted heart rate. Blood pressure meenu from 137/66 mmHg to 217/73 mmHg. The test was stopp ed because of achievement of targeted heart rate. Baseline EKG showed a sinus rhythm, ana maria l EKG. IMPRESSION: 1. Exercise EKG is negative. 2. Blood pressure response is hypertensive. 3. The patient had Chest pain 4/10 at the peak exercise during the procedure. 4. There is no arrhythmia during procedure. 5. Exercise tolerance is diminished for age. Signed by: Verenice Zhang MD [facility] 04/29/2017, 11:17 documented in this encounter Plan of Treatment Not on filedocumented as of this encounter Procedures + +--------+ + + + | Procedure Name | Priori | Date/Time | Associated Diagnosis | Comments | | | ty | | | | + +--------+ + + + | STRESS ECG | Routin | 04/29/2017 | Chest pain, | Results for this | | | e | 11:16 AM | unspecified type | procedure are in the | | | | PST | Coronary artery | results section. | | | | | disease, angina | | | | | | presence | | | | | | unspecified, | | | | | | unspecified vessel | | | | | | or lesion type, | | | | | | unspecified whether | | | | | | eek or | | | | | | transplanted heart | | + +--------+ + + + documented in this encounter Results Stress ECG (04/29/2017 11:16 AM PST) + + + | Narrative | Performed At | + + + | Verenice Zhang MD 04/29/2017 11:19 | [facility] | | TREADMILL STRESS TEST REPORT Patient Name: Geoffrey Brooks | | | Jeff Study Date: 04/29/2017 Primary Care Provider: Uday | | | Ayan Parra MD : 1960 Age: 56 | | | y.o. Gender: male CLINICAL HISTORY/DIAGNOSIS: Chest pain/CAD | | | EXERCISE TREADMILL STRESS TEST Indication: chest pain/CAD | | | Procedure: The patient exercised using a standard David protocol | | | and walked for 2 minute 0 seconds into stage III achieving 9.8 METS. | | | Total exercise duration was 8 minutes 0 seconds. Heart rate | | | increased from 64 beats per minute to 141 beats per minute which is | | | 85 % of the maximal predicted heart rate. Blood pressure meenu from | | | 137/66 mmHg to 217/73 mmHg. The test was stopped because of | | | achievement of targeted heart rate. Baseline EKG showed a sinus | | | rhythm, normal EKG. IMPRESSION: 1. Exercise EKG is | | | negative. 2. Blood pressure response is hypertensive. | | | 3. The patient had Chest pain 4/10 at the peak exercise | | | during the procedure. 4. There is no arrhythmia | | | during procedure. 5. Exercise tolerance is diminished | | | for age. Signed by: Verenice Zhang MD [facility] | | | 04/29/2017, 11:17 | | + + + + +---------+ + + | Performing | Address | City/State/Zipcode | Phone Number | | Organization | | | | + +---------+ + + | [facility] | | | | + +---------+ + + documented in this encounter Visit Diagnoses + + | Diagnosis | + + | Chest pain, unspecified type | + + | Coronary artery disease, angina presence unspecified, unspecified vessel or lesion | | type, unspecified whether eek or transplanted heart | + + documented in this encounter"
--- OUTSIDE RECORDS SUMMARY | ~2019-11-21 | XMS | Encounter Summary ---
Demographics + + + | Address | [address] | | | [place] [address] | + + + | Home Phone | | + + + | Preferred Language | Unknown | + + + | Marital Status | | + + + | Yazidism Affiliation | CHR | + + + | Race | White | + + + | Ethnic Group | Not or | + + + Author + + + | Author | [facility] | + + + | Organization | [facility] | + + + | Address | Unknown | + + + | Phone | Unavailable | + + + Support + + + + + | Name | Relationship | Address | Phone | + + + + + | Rabia Aguilar | ECON | [address] | | | | | [place] | | | | | [address] | | + + + + + Care Team Providers + +------+ + | Care Boardmarker Name | Role | Phone | + [...] | | | | | | [place], [address] [place] [address] | | | | | | [place], [place] | | | | | | [address] | | | | | | [phone] | | | +--------+------+ + + + [...] + | [facility] | [address] | [place] [address] | | | [place] | | | [...] + | [facility] | [address] | [place] [address] | | | [place] | | | | + + + [...] + | [facility] | [address] | [place] [address] | | | [place] | | | [...] [facility] | [address] | [place] [address] | | | SERVICES, SPECIAL | PARK [...] weeks. Test performed by: | | | [facility] | | | Coccidioidomycosis Serology [facility] | | | [facility] Nadiya Leary [address], [place] | | | [phone] | | |[place] [address] | | |[phone] | | | | | | | [...] A: | | | | | | Yumber.ChatID/CS | | | | + + + [...] | | | | | determined by [facility] | | | | | | Laboratories. See | | | | | | Compliance Statement A: | | | | | | [email or web address] | | | | | | by [employer],[address] | | | | | [address], [facility] | | | | | | [address] | | | | | | [phone].[employer]. | | | | | | com, [...] [facility] | [address] | [place], [place] | | | [facility] | | [address] | | + + + + + HEPATITIS A AB SCREEN, SERUM (01/08/2015 12:00 PM PDT) + + + + + + | Component | Value | Ref Range | Performed | Pathologist | | | | | At | Signature | + + + + + + | HEPATITIS A | Positive (A)Comment: | Negative | [facility] | | | AB TOTAL | Antibody Pos | | [facility] | | | | | [facility] | | + + + + + + + + | Specimen | + + | Blood - Blood | + + + + + + + | Performing | Address | City/State/Zipcode | Phone Number | | Organization | | | | + + + + + | [facility] | [address] | [place] [address] | | | [place] | | | [...] + | [facility] | [address] | [place] [address] | | | [place] | | | | + + + [...] + | [facility] | [address] | [place] [address] | | | [place] | | | [...] + | [facility] | [address] | [place] [address] | | | [place] | | | [...] | | Sheet at: | | | http://www.cdc.gov/nchstp/tb/pubs/tbfactssheets/755469.htm | | | Test performed by: [facility] [address] | | | [address] [address] | | + + + + + [...] + | [facility] | [address] | [place] [address] | | | [place] | | | [...] [facility] | [address] | [place] [address] | | | SERVICES, SPECIAL | [address] | | | | IMM + COAG | | | | + + + + + documented in this encounter Visit Diagnoses + + | Diagnosis | + + | Fever in adult | + + documented in this encounter"
--- OUTSIDE RECORDS SUMMARY | ~2019-11-21 | XMS | Encounter Summary ---
Demographics + + + | Address | [address] | | | [place] [address] | + + + | Home Phone | | + + + | Preferred Language | Unknown | + + + | Marital Status | | + + + | Oriental Orthodox Affiliation | CHR | + + + | Race | White | + + + | Ethnic Group | Not or | + + + Author + + + | Author | [facility] | + + + | Organization | [facility] | + + + | Address | Unknown | + + + | Phone | Unavailable | + + + Support + + + + + | Name | Relationship | Address | Phone | + + + + + | Rabia Aguilar | ECON | [address] | | | | | [place] | | | | | [address] | | + + + + + Care Team Providers + +------+ + | Care University Tutor Name | Role | Phone | + +------+ + | Uday Parra MD | PCP | | + +------+ + Reason for Visit + + + | Reason | Comments | + + + | New patient | | | consultation | | + + + Intake Referral (Routine) +--------+--------+ + + + + | Status | Reason | Specialty | Diagnoses / | Referred By | Referred To | | | | | Procedures | Contact | Contact | +--------+--------+ + + + + | Closed | | Rheumatology | Diagnoses | Tuttle, | Ross, | | | | | Vasculitis | Uday Rucker MD | Paul Locke MD | | | | | limited to | SAMUEL | [address] [facility] | | | | | the skin, | MEDICAL | [facility] | | | | | unspecified | [address] [place], | | | | | Procedures | [address] | [place] | | | | | [place] | [place], | [address] | | | | | PATIENT | [place] [address] | | | | | | [address] | Phone: | | | | | | | [phone] | | | | | | | Fax: | | | | | | | [phone] | | +--------+--------+ + + + + Encounter Details +--------+---------+ + + + | Date | Type | Department | Care Team | Description | +--------+---------+ + + + | 07/25/ | Office | Rheumatology at | Paul Hawkins, | Pleural effusion | | 2016 | Visit | Physicians Tee Nicholas MD | (Primary Dx) | | | | [address] | | | | | | [address] [facility] | | | | | | [address], [address] | | | | | | [place], [place] | | | | | | [address] | | | | | | [phone] | | | +--------+---------+ + + + [...] + + + + | Temperature | - | - | | + + + + + | Respiratory Rate | - | - | | + + + + + | Oxygen Saturation | - | - | | + [...] in this encounter Patient Instructions Patient Instructions Shira Rich - 07/26/2015 9:42 AM PDTIt was a pleasure seeing you in clinic today. Plan today: Labs: ANCA, GUNNAR, C3, C4, IgG, IgM, IgA. We will retreive outside labs Medications: Stop hydralazine and discuss alternative with cardiology Discuss MRI brain with your PCP Follow up appt in 3 months. Please do not hesitate to contact us with any questions or concerns. Shira Tolliver MD RHEUMATOLOGY AT [address] Mailcode: Op09 [place] [address] documented in this encounter Progress Notes Paul Hawkins MD - 08/01/2015 11:44 AM PDTI have evaluated the patient with Dr. Tolliver an d agree with the history, findings, assessment and plan. Our clinical suspicion for vascul itis is low given the lack of definitive findings of vasculitis and an alternate explanation for his symptoms (infection). Suspect that his positive ANCA could be drug induced and wou ld recommend changing hydralazine to an alternate agent if possible. Will repeat labs today and attempt to get more thorough outside records including outside ANCA testing. PAUL HAWKINS MD RHEUMATOLOGY FACULTY [address] [place] [address] Mailcode: [address] [place] [address] Marsha Steinberg, Shira Casillas - 07/25/2015 5:30 PM PDT RHEUMATOLOGY Vasculitis Clinic NEW VISIT PCP Uday Parra MD [facility] [address] [place] [address] Allergy immunology: Dr. Braxton Cardiology: Dr. Wali Fang Reason for referral: possible vasculitis - recurrent infections, positive ANCA Rheum background: Pt had Bronchitis and asthma as a child. 30-40's:had 3-4 LRTI's a year - would need abx each time 2001: Developed Hematuria- cytoscopy unrevealing. 2006: CAD s/p stent 50's: Worsening severity of infections- needed inpatient hospitalizations for most . Saw Im munology Dr. Braxton- checked for allergies: None noted. July 2010: diagnosed with REGINA- uses CPAP machine regularly. Developed CKD. Apr 2014 : CAD s/p 2nd stent October 2014: Pneumonia with sepsis- sick for months . Noted to have " enlarged heart" Since the episode in October 2014, pt and his note that he has not recovered completely a nd has not been back to baseline. He reports on and off symptoms of nasal congestion. He c/o Blurred vision by the end of the day. Last eye appt 1.5 yrs ago. Ongoing Sinus pressure + Eye water ++ Nasal drainage with 1 episode of epistaxis. He also c/o ongoing Dizzy spells on changing directions+ . Poor equilibrium: ongoing since October. He c/o SOB on exertion- ongoing since 2004, worse since October 2014 He also c/o Wheezing, chest congestion with sputum production -small amount of blood- he wa s started on prednisone 40 mg last month - currently on prednisone 20 mg. Reduced symptoms of wheezing phlegm No hoarseness/ dysphonia. Minimal dysphagia , no choking spells. Joint pains: Pain in Rt wrist, Rt elbows,. No red/ warm/ swollen jts. No fever. Chills + Wt loss during pneumonia episode. Subsequent wt gain. Last abx: bactrim 1.5 months ago. Prior to that on and off for yrs. No wrist drop/ foot drop. No new areas of tingling/ numbness No recent hematuria. No rashes/ ulcer/ nodules. No fever/ chills ROS: 10 point ROS negative as per patient questionnaire reviewed with patient and scanned with t his encounter except as above Past Medical History Diagnosis Date Coronary atherosclerosis of unspecified type of vessel, port gamble or graft Pneumonia History reviewed. No pertinent past surgical history. Current Outpatient Prescriptions Medication Sig acetaminophen 325 [...] Take 10 mg by mouth once daily. fenofibrate 145 [...] max of 3 doses in 15 minutes. predniSONE 20 mg oral tablet Take 2 tablets by mouth once daily. spironolactone 50 mg oral tablet Take 50 mg by mouth once daily. valsartan 160 mg oral tablet Take 320 mg by mouth once daily. No current facility-administered medications for this visit. No Known Allergies History Substance Use Topics Smoking status: Former Smoker Smokeless tobacco: Not on file Alcohol Use: No Fh: NC There is no immunization history on file for this patient. Examination: BP 138/64 | Pulse 79 | Ht 1.91 m (6' 3.2") | Wt 137.893 kg (304 lb) | BMI 37.8 kg/(m^2) Rapid 3 MHAQ: 8.0 (07/26/15 08) PAIN LEVEL: 6 (07/26/15 08) GLOBAL ASSESSMENT: 7.5 (07/26/15799) RAPID 3: 7.17 (07/26/15 08) General: Pleasant, cooperative, no acute distress. Appropriate mood and affect. HEENT: No scleral icterus or conjunctival injection. No lacrimal or parotid enlargement. N o malar rashes. Mouth with dry mucous membranes without oral ulcers. Nasal drainage with spe ck of blood Neck: No cervical or supraclavicular adenopathy Good ROM. Carotids 2+ w/o bruits. Lungs: Clear to auscultation without wheezes or crackles Cardiovascular: RRR without murmurs, rubs, or gallops Skin: No rashes, nodules, ulcers. No apparent psoriasis. Musculoskeletal: No synovitis/ effusions Laboratory Data: Lab Results Component Value Date WBC 8.35 01/02/2015 HB 10.7 01/02/2015 HCT 33.6 01/02/2015 PLT 292 01/02/2015 MCV 90.6 01/02/2015 RDW 43.7 01/02/2015 Lab Results Component Value Date NA 141 01/02/2015 K 4.2 01/02/2015 CL 109 01/02/2015 BICARB 22 01/02/2015 BUN 29 01/02/2015 CR 1.51 01/02/2015 GLU 111 01/02/2015 CA 8.9 01/02/2015 AST 22 12/31/2014 ALT 18 12/31/2014 AP 56 12/31/2014 TBILI 0.3 12/31/2014 TP 7.8 12/31/2014 ALB 4.1 12/31/2014 ANIONGAP 10 01/02/2015 ANIONALBCOR 7 12/31/2014 CMP: 06/2015: cr 1.04 <-- 1.24 <--1.72 Lab Results Component Value Date ESR 27* 12/31/2014 Lab Results Component Value Date CRP <2.9 12/31/2014 CRP 10.9 06/2015 UA: no blood, no protein, no casts Ref. Range 01/08/2015 12:00 RPR SRM QUAL Latest Ref Range: Non-Reactive Non-Reactive HIV-1,2 AB/HIV-1 P24 AG SCREEN Latest Ref Range: Nonreactive Nonreactive QUANTIFERON TB GOLD Latest Ref Range: Negative or Indeterminate Negative INTERP;COCCI ABS Latest Ref Range: Negative Negative HEPATITIS B CORE AB, SERUM Latest Ref Range: Negative Negative HEPATITIS A AB TOTAL Latest Ref Range: Negative Positive (A) HEPATITIS A AB, IGM Latest Ref Range: Negative Negative HEP B SURFACE AB QUAL, SERUM Latest Ref Range: Non Reactive Non Reactive HEPATITIS C AB Latest Ref Range: Negative Negative Imaging: CTA chest 10/2014 Opacification is adequate for assessment of pulmonary artery emboli. There is some motion on the scan. No filling defect in the pulmonary arteries to the proximal subsegmental level. The heart size is normal, without pericardial effusion. There is no evidence for elevated right heart pressures. Few scattered calcific plaques within the aorta. There is no evidence for axillary, mediastinal or hilar lymphadenopathy. The thyroid is unremarkable. No focal consolidation. Very minimal scattered atelectasis in the left. No pulmonary nodule is evident. Small left pleural effusion is noted. No right pleural effusion, however the right costophrenic angle is not visualized on the CT. No acute osseous abnormality. Soft tissues are unremarkable. Visualized portions of the liver, spleen, stomach are unremarkable. IMPRESSION: No pulmonary embolism. Small layering left CT brain 10/2014 Brain: No acute intracranial abnormality. No evidence of hemorrhage, mass, or acute infarction. The ventricles are normal in size and morphology. The bifrontal extra-axial spaces are mildly prominent. Soft tissues: Unremarkable Skull and skull base: No fractures or destructive lesions. Mastoids and middle ears are unremarkable. Face/orbits: Visualized portions are unremarkable. Paranasal sinuses: The sequela of chronic sinusitis status post paranasal sinus surgery is observed. No evidence of opacification of the visualized sinuses. IMPRESSION: No evidence of acute hemorrhage, herniation, or hydrocephalus. Impression: Geoffrey Aguilar is a 54 y.o. 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 It can als o contribute to pleural effusion ( noted on prior imaging) . He has a remote hx of hematuria but none recently . His most concerning symptoms today are those of ongoing vertigo symptoms - we would recomme nd further workup with PCP with possible MRI brain. Recommendations: Labs: ANCA, GUNNAR, C3, C4. We will retreive outside labs including ANCA. Medications: We will discuss stopping hydralazine and discuss alternative with cardiolog y Discuss MRI brain with PCP to r/o brainstem lesions and cerebellum I reviewed the patient s questionnaire, answered all questions raised, and provided couns eling and education. This patient was seen and examined with Dr. Hawkins who agrees with my assessment and recomm endations. Shira Tolliver MD RHEUMATOLOGY AT [address] Mailcode: Op[address] [place] [phone] documented in this en counter Plan of Treatment Not on filedocumented as of this encounter Results IGM, SERUM (07/26/2015 10:10 [...] + | [facility] - | [address] | [place] [address] | | | [place] | | | [...] + | [facility] | [address] | [place] [address] | | | [place] | | | [...] + | [facility] | [address] | [place] [address] | | | [place] | | | | + + + + + ANTI NEUTROPHIL CYTOPLASMIC AB SCN, SERUM (07/26/2015 10:10 AM PDT) + + + + + + | Component | Value | Ref Range | Performed | Pathologist | | | | | At | Signature | + + + + + + | ANCA | <1:20Comment: The ANCA | <1:20 | [facility] | | | -NEUTROPHIL | IFA is [...] by | | | | | | [address] | | | | | | Kristina Garcia, [facility] [place] | | | | | | [address] | | | | | | [phone].[employer]. | | | | | | Reagan kerr, | | | | | | , [...] [facility] | [address] | [place], [place] | | | [facility] | | [address] | | + + + + + [...] by | | | | | | [address] | | | | | | Kristina Garcia, [facility] [place] | | | | | | [address] | | | | | | [phone].[employer]. | | | | | | Reagan kerr, | | | | | | Aryan LOPEZ. Director | | | | + + + + + + + + | Specimen | + + | Blood - Blood | + + + + + + + | Performing | Address | City/State/Zipcode | Phone Number | | Organization | | | | + + + + + | [facility] | [address] | [place], [place] | | | [facility] | | [address] | | + + + + + [...] + | [facility] | [address] | [place] [address] | | | [place] | | | [...] | + + + + + | [facility] - | [address] | [place] [address] | | | [place] | | | | + + + + + documented in this encounter Visit Diagnoses + + | Diagnosis | + + | Pleural effusion - Primary Unspecified pleural effusion | + + documented in this encounter
--- OUTSIDE RECORDS SUMMARY | ~2019-11-21 | XMS | Encounter Summary ---
Demographics + + + | Address | [address] | | | [place] [address] | + + + | Home Phone | | + + + | Preferred Language | Unknown | + + + | Marital Status | | + + + | Anglican Affiliation | CHR | + + + | Race | White | + + + | Ethnic Group | Not or | + + + Author + + + | Author | [facility] | + + + | Organization | [facility] | + + + | Address | Unknown | + + + | Phone | Unavailable | + + + Support + + + + + | Name | Relationship | Address | Phone | + + + + + | Rabia Aguilar | ECON | [address] | | | | | [place] | | | | | [address] | | + + + + + Care Team Providers + +------+ + | Care Technical Stenographer Name | Role | Phone | + [...] Nicholas MD | | | | | [address] | | | | | | [address] [facility] | | | | | | [address] | | | | | | [place], [place] | | | | | | [address] | | | | | | [phone] | | | +--------+ + + + [...]
--- OUTSIDE RECORDS SUMMARY | ~2019-11-21 | XMS | Encounter Summary ---
Demographics + + + | Address | [address] | | | [place] [address] | + + + | Home Phone | | + + + | Preferred Language | Unknown | + + + | Marital Status | | + + + | Cheondoism Affiliation | 1013 | + + + | Race | Unknown | + + + | Ethnic Group | Unknown | + + + Author + + + | Author | [facility] | | | and [place] | + + + | Organization | [facility] | | | [...] Team Providers + +------+ + | Care Precision Layout Worker Name | Role | Phone | + +------+ + PCP | Unavailable | + +------+ + Encounter Details +--------+ + + + + | Date | Type | Department | Care Team | Description | +--------+ + + + + | 04/24/ | Hospital | [facility] | Conversion | | | 2013 - | Encounter | MEDICAL CENTER | Transaction, | | | | | CLINICAL DECISION | Provider Unknown | | | 04/25/ | | [address] | | | | 2013 | | [place], [place] | (Fax) | | | | | [phone] | Jhoan Maldonado MD | | | | | [phone] | [address] | | | | | | [place] [address] | | | | | | [phone] | | | | | | | [...] + + documented as of this encounter Discharge Summaries Jhoan Maldonado MD - 04/25/2014 8:57 AM PSTFormatting of this note might be different from t he original. Discharge Summaries by Jhoan Maldonado MD at 04/25/14 0857 Author: Jhoan Maldonado MD Service: Cardiology Author Type: Physician Filed: 04/26/14 0821 Date of Service: 04/25/1457 Status: Signed Superintendent [employer]: Jhoan Maldonado MD (Physician) Related Notes: Original Note by Jhoan Maldonado MD (Physician) filed at 04/25/[address] [facility] Service: Cardiology Post PCI Discharge Summary Date of Admission: 04/24/2014 Date of Discharge: 04/25/2014 Discharge Physician: JHOAN MALDONADO MD Discharge Diagnoses: 1. Coronary artery disease. 2. Status post stenting of the large marginal branch with 3 x 12 mm PROMUS Premier drug-elu ting stent. 3. Normal left ventricular systolic function. 4. Hypertension. 5. Hyperlipidemia. 6. Asthma. Subjective: Geoffrey Aguilar is a 53 y.o. male who is doing well after undergoing PCI of OM1 with no chest pain or SOB. No bleeding reported. Physical Exam BP 129/60 | Pulse 56 | Temp(Src) 97.8 F (36.6 C) (Oral) | Resp 18 | Ht 1.93 m (6' 4") | Wt 130.636 kg (288 lb) | BMI 35.07 kg/m2 | SpO2 97% General appearance: alert, cooperative and no distress Lungs: clear to auscultation bilaterally and normal percussion bilaterally Heart: regular rate and rhythm, S1, S2 normal, no murmur, click, rub or gallop Abdomen: benign, bowel sounds normal, no masses palpable and soft, non-tender Extremities: extremities normal, atraumatic, no cyanosis or edema, no edema, redness or ten derness in the calves or thighs, groin soft. Pulses: 2+ and symmetric DATA Lab Review Lab Results Component Value Date NA 136 04/25/2014 K 4.1 04/25/2014 CL 107 04/25/2014 CO2 22* 04/25/2014 BUN 22 04/25/2014 CREATININE 1.50* 04/25/2014 Lab Results Component Value Date CKTOTAL 144 09/08/2011 CKMB 1.1 09/08/2011 CKMBINDEX 0.8 09/08/2011 Lab Results Component Value Date WBC 13.1* 04/24/2014 HGB 12.5* 04/25/2014 HCT 36.6* 04/25/2014 MCV 87.0 04/24/2014 PLT 276 04/24/2014 Lab Results Component Value Date GLUF 126* 04/25/2014 EKG Findings: SR, no st/T wave changes. PLAN 1. DC home. 2. Continue the current medications. 3. Cardiac rehab planned. 4. Smoking cessation ,non-smoker. No Known Allergies Medication List START taking these medications prasugrel 10 MG Tabs QTY: 30 tablet Refills: 11 Commonly known as: EFFIENT Take 1 tablet by mouth daily. CHANGE how you take these medications * aspirin 81 MG EC tablet Refills: 0 What changed: Another medication with the same name was added. Make sure you understand ho w and when to take each. * aspirin 81 MG chewable tablet QTY: 1 tablet Refills: 0 Take 1 tablet by mouth once. What changed: You were already taking a medication with the same name, and this prescripti on was added. Make sure you understand how and when to take each. * Notice: This list has 2 medication(s) that are the same as other medications prescribed for you. Read the directions carefully, and ask your doctor or other care provider to revie w them with you. CONTINUE taking these medications amLODIPine 10 MG tablet Refills: 0 Commonly known as: NORVASC atorvastatin 10 MG tablet Refills: 0 Commonly known as: LIPITOR fenofibrate 48 MG tablet Refills: 0 Commonly known as: TRICOR hydrALAZINE 25 MG tablet Refills: 0 Commonly known as: APRESOLINE hydrochlorothiazide 25 MG tablet Refills: 0 Commonly known as: HYDRODIURIL metoprolol 25 MG 24 hr tablet Refills: 0 Commonly known as: TOPROL-XL spironolactone 50 MG tablet Refills: 0 Commonly known as: ALDACTONE valsartan 320 MG tablet Refills: 0 Commonly known as: DIOVAN Where to Get Your Medications These are the prescriptions that you need to filler picker. You may get the following medications from any pharmacy - aspirin 81 MG chewable tablet - prasugrel 10 MG Tabs Disposition: Home Condition: Stable Code Status: Full code Follow up: Wali Fang MD [address] [address] In 10 days JHOAN MALDONADO MD 04/25/2014 8:57 AM documented in this enco unter Progress Notes Conversion Transaction, Provider Unknown - 04/25/2014 11:09 AM PSTFormatting of this note m ight be different from the original. Nurse Progress Note by Nadine Delgado RN at 04/25/14 110 Author: Nadine Delgado RN Service: (none) Author Type: Registered Nurse Filed: 04/25/14 1110 Date of Service: 04/25/141108 Status: Signed Superintendent [employer]: Nadine Delgado RN (Registered Nurse) Discharge instructions given to the patient advised to follow up with PCP. 1 Rx was sent to [facility] in [place]. Insurance will cover but patient will have a copay of 70.00. Patient and spouse aware and are ok with this. Patient refused wheelchair out and ambulated out with the spouse and a [employer]. onver litzy Transaction, Provider Unknown - 04/24/2014 7:41 PM PST Progress Notes by Avi Lowe RPH at 04/24/141940 Author: Avi Lowe RPH Service: (none) Author Type: Pharmacist Filed: 04/24/141940 Date of Service: 04/24/141940 Status: Signed Superintendent [employer]: Avi Lowe RPH (Pharmacist) Scr = 1.42- pharmacy will renal dose as needed once labs are available. onver litzy Transaction, Provider Unknown - 04/24/2014 6:26 PM PST Nurse Progress Note by Hoa Massey RN at 04/24/141825 Author: Hoa Massey RN Service: (none) Author Type: Registered Nurse Filed: 04/24/141830 Date of Service: 04/24/141825 Status: Signed Superintendent [employer]: Hoa Massey RN (Registered Nurse) All 13 cc's of air inserted into TR removed without onset of bleed from right radial site. Pt ambulated 25 feet to bathroom and back to bed with a steady gait and no report of dizzine ss. Pts vitals have remained stable. Pt has had no c/o pain. Pt ambulated around the unit wi th ease. Will continue to monitor and report status to NOC RN. onver litzy Transaction, Provider Unknown - 04/24/2014 6:04 PM PST Nurse Progress Note by Hoa Massey RN at 04/24/141803 Author: Hoa Massey RN Service: (none) Author Type: Registered Nurse Filed: 04/24/141804 Date of Service: 04/24/141803 Status: Signed Superintendent [employer]: Hoa Massey RN (Registered Nurse) Taking pts at home medication Dulera to pharmacy for label and return on next run. onver litzy Transaction, Provider Unknown - 04/24/2014 3:33 PM PST Case Management by Suzan Wise RN at 04/24/14 1533 Author: Suzan Wise RN Service: (none) Author Type: Registered Nurse Filed: 04/24/141532 Date of Service: 04/24/14 153 Status: Signed Superintendent [employer]: Suzan Wise RN (Registered Nurse) Discharge planning: CM spoke with the lead RN and/or pt's RN regarding discharge needs. P er their report, they did not identify financial, transportation, support or home safety nee ds and feel that the pt does not need to be seen by CM at this time. I encouraged them to e nter a CM consult as needs arise. onver litzy Transaction, Provider Unknown - 04/24/2014 2:47 PM PST Nurse Progress Note by Hoa Massey RN at 04/24/141446 Author: Hoa Massey RN Service: (none) Author Type: Registered Nurse Filed: 04/24/141448 Date of Service: 04/24/141446 Status: Signed Superintendent [employer]: Hoa Massey RN (Registered Nurse) Pt right radial pulse +2 post procedure, pt reports no pain or abnormal sensation in right extremity, vitals WNL, pt eating late lunch, family and spouse at bedside visiting. Pt is al ert and oriented. Educated about preventing bending of the right wrist. Will continue to mon itor pt status. onver litzy Transaction, Provider Unknown - 04/24/2014 2:30 PM PST Progress Notes by Grace Quijano RPH at 04/24/14 143 Author: Grace Quijano RPH Service: (none) Author Type: Pharmacist Filed: 04/24/141429 Date of Service: 04/24/141429 Status: Signed Superintendent [employer]: Grace Quijano RPH (Pharmacist) Renal Dosing Monitoring: Geoffrey Augilar 53 y.o. male Pharmacy dosing for renal function per Dr. Maldonado SCr 1.42, est. CrCl unavail - need ht/wt Plan per protocol: No renally adjusted medications currently ordered. Pharmacy will continue monitoring patient for appropriate dosing per renal function. 04/24/2014 2:29 PM Pharmacist: Grace Quijano docume nted in this encounter H&P Notes Jhoan Maldonado MD - 04/24/2014 5:08 PM PSTFormatting of this note might be different from t he original. H&P by Jhoan Maldonado MD at 04/24/141707 Author: Jhoan Maldonado MD Service: Cardiology Author Type: Physician Filed: 04/26/14 08 Date of Service: 04/24/141707 Status: Signed Superintendent [employer]: Jhoan Maldonado MD (Physician) Related Notes: Original Note by Jhoan Maldonado MD (Physician) filed at 04/24/141708 [facility] Service: Cardiology Pre-Operative History & Physical Interval Update I interviewed and examined Mr. Aguilar, who is a 53-year-old gentleman with history of coronary artery disease, status post previous stenting of right coronary artery, who pre sented recently to Dr. Fang with occasional substernal chest discomfort. The stress test sugge sted reversal of inferior defect. He was referred for coronary angiography and possible inte rvention. For details regarding his presentation, kindly refer to Dr. Fang's notes. JHOAN MALDONADO MD 04/24/2014 5:08 PM *CORE MEASURES REMINDER: If the patient has a known or suspected infection prior to surger y, please add diagnosis to the problem list (consider: Infection 136.9). documented in this enco unter Plan of Treatment Not on filedocumented as of this encounter Procedures + +--------+ + + + | Procedure Name | Priori | Date/Time | Associated Diagnosis | Comments | | | ty | | | | + +--------+ + + + | HEMOGLOBIN AND | Routin | 04/25/2014 | | Results for this | | HEMATOCRIT | e | 5:30 AM | | procedure are in the | | | | PST | | results section. | + +--------+ + + + | BASIC METABOLIC | Routin | 04/25/2014 | | Results for this | | PANEL | e | 5:30 AM | | procedure are in the | | | | PST | | results section. | + +--------+ + + + | ECG 12 LEAD | Routin | 04/25/2014 | | Results for this | | | e | 5:07 AM | | procedure are in the | | | | PST | | results section. | + +--------+ + + + | ECG 12 LEAD | Routin | 04/24/2014 | | Results for this | | | e | 7:44 PM | | procedure are in the | | | | PST | | results section. | + +--------+ + + + | ECG 12 LEAD | Routin | 04/24/2014 | | Results for this | | | e | 1:48 PM | | procedure are in the | | | | PST | | results section. | + +--------+ + + + | ACTIVATED CLOTTING | Routin | 04/24/2014 | | Results for this | | TIME | e | 1:11 PM | | procedure are in the | | | | PST | | results section. | + +--------+ + + + | ACTIVATED CLOTTING | Routin | 04/24/2014 | | Results for this | | TIME | e | 1:02 PM | | procedure are in the | | | | PST | | results section. | + +--------+ + + + | EXTERNAL LAB: CBC | Routin | 04/24/2014 | | Results for this | | | e | 11:34 AM | | procedure are in the | | | | PST | | results section. | + +--------+ + + + | BASIC METABOLIC | Routin | 04/24/2014 | | Results for this | | PANEL | e | 11:34 AM | | procedure are in the | | | | PST | | results section. | + +--------+ + + + documented in this encounter Results Hemoglobin and Hematocrit (04/25/2014 5:30 AM PST) + + + + + + | Component | Value | Ref Range | Performed | Pathologist | | | | | At | Signature | + + + + + + | Hemoglobin | 12.5 (L)Comment: Testing | 13.2 - 17.0 | EXTERNAL | | | | performed at [facility], [address] | g/dL | LAB | | | | [address], | | | | | | [place] [address] | | | | + + + + + + | Hematocrit, | 36.6 (L)Comment: Testing | 39.0 - 50.0 % | EXTERNAL | | | POC | performed at [facility], [address] | | LAB | | | | [address], | | | | | | [place] [address] | | | | + + + + + + + + | Specimen | + + | | + + + +---------+ + + | Performing | Address | City/State/Zipcode | Phone Number | | Organization | | | | + +---------+ + + | EXTERNAL LAB | | | | + +---------+ + + Basic Metabolic Panel (04/25/2014 5:30 AM PST) + + + + + + | Component | Value | Ref Range | Performed | Pathologist | | | | | At | Signature | + + + + + + | Na | 136Comment: Testing | 135 - 143 | EXTERNAL | | | | performed at [facility], [address] | mmol/L | LAB | | | | [address], | | | | | | [place] [address] | | | | + + + + + + | K | 4.1Comment: Testing | 3.5 - 4.9 | EXTERNAL | | | | performed at [facility], [address] | mmol/L | LAB | | | | [address], | | | | | | [place] [address] | | | | + + + + + + | Cl | 107Comment: Testing | 99 - 109 mmol/L | EXTERNAL | | | | performed at [facility], [address] | | LAB | | | | [address], | | | | | | [place] [address] | | | | + + + + + + | CO2 | 22 (L)Comment: Testing | 23 - 32 mmol/L | EXTERNAL | | | | performed at [facility], [address] | | LAB | | | | [address], | | | | | | [place] [address] | | | | + + + + + + | Anion Gap | 11Comment: Testing | 5 - 20 mmol/L | EXTERNAL | | | | performed at [facility], [address] | | LAB | | | | [address], | | | | | | [place] [address] | | | | + + + + + + | Glucose, | 126 (H)Comment: Testing | 65 - 99 mg/dL | EXTERNAL | | | Fasting | performed at [facility], [address] | | LAB | | | | [address], | | | | | | [place] [address] | | | | + + + + + + | BUN | 22Comment: Testing | 8 - 25 mg/dL | EXTERNAL | | | | performed at [facility], [address] | | LAB | | | | [address], | | | | | | [place] [address] | | | | + + + + + + | Creatinine | 1.50 (H)Comment: Testing | 0.70 - 1.30 | EXTERNAL | | | | performed at [facility], [address] | mg/dL | LAB | | | | [address], | | | | | | [place] [address] | | | | + + + + + + | BUN/Creatin | 15Comment: Testing | | EXTERNAL | | | ine Ratio | performed at [facility], [address] | | LAB | | | | [address], | | | | | | [place] [address] | | | | + + + + + + | Calcium | 9.8Comment: Testing | 8.5 - 10.2 | EXTERNAL | | | | performed at [facility], [address] | mg/dL | LAB | | | | [address] [facility], | | | | | | [place] [address] | | | | + + + + + + | Estimated | 52 (L)Comment: GFR <60: | mL/min/1.73m2 | EXTERNAL | | | GFR | CHRONIC KIDNEY DISEASE, | | LAB | | | | IF FOUND OVER A 3 MONTH | | | | | | PERIOD.GFR <15: KIDNEY | | | | | | FAILURE.FOR | | | | | | AMERICANS, MULTIPLY THE | | | | | | CALCULATED GFR BY | | | | | | 1.210.Testing performed | | | | | | at [facility], [address] | | | | | | [address] [facility], | | | | | | [place] [address] | | | | + + + + + + + + | Specimen | + + | Blood specimen | | (specimen) | + + + +---------+ + + | Performing | Address | City/State/Zipcode | Phone Number | | Organization | | | | + +---------+ + + | EXTERNAL LAB | | | | + +---------+ + + ECG 12 lead (04/25/2014 5:07 AM PST) + + + + + + | Component | Value | Ref Range | Performed | Pathologist | | | | | At | Signature | + + + + + + | DIAGNOSIS: | Sinus bradycardiaLeft | | EXTERNAL | | | | axis | | LAB | | | | deviationNon-specific | | | | | | intra-ventricular | | | | | | conduction | | | | | | delayNonspecific T wave | | | | | | abnormalityAbnormal | | | | | | ECGWhen compared with | | | | | | ECG of 24-APR-2014 | | | | | | 19:44,No significant | | | | | | change was | | | | | | foundConfirmed by SANTIAGO | | | | | | MAYA ([id number]) on | | | | | | 04/25/2014 11:46:56 AM | | | | + + + + + + + + | Specimen | + + | | + + + + + | Narrative | Performed At | + + + | Historically converted procedure from [facility] Epic environment | EXTERNAL LAB | + + + + +---------+ + + | Performing | Address | City/State/Zipcode | Phone Number | | Organization | | | | + +---------+ + + | EXTERNAL LAB | | | | + +---------+ + + ECG 12 lead (04/24/2014 7:44 PM PST) + + + + + + | Component | Value | Ref Range | Performed | Pathologist | | | | | At | Signature | + + + + + + | DIAGNOSIS: | Normal sinus rhythmLeft | | EXTERNAL | | | | axis | | LAB | | | | deviationNon-specific | | | | | | intra-ventricular | | | | | | conduction | | | | | | delayNonspecific T wave | | | | | | abnormalityAbnormal | | | | | | ECGWhen compared with | | | | | | ECG of 24-APR-2014 | | | | | | 13:48,No significant | | | | | | change was | | | | | | foundConfirmed by SANTIAGO | | | | | | MAYA ([id number]) on | | | | | | 04/25/2014 11:41:10 AM | | | | + + + + + + + + | Specimen | + + | | + + + + + | Narrative | Performed At | + + + | Historically converted procedure from [facility] Epic environment | EXTERNAL LAB | + + + + +---------+ + + | Performing | Address | City/State/Zipcode | Phone Number | | Organization | | | | + +---------+ + + | EXTERNAL LAB | | | | + +---------+ + + ECG 12 lead (04/24/2014 1:48 PM PST) + + + + + + | Component | Value | Ref Range | Performed | Pathologist | | | | | At | Signature | + + + + + + | DIAGNOSIS: | Normal sinus rhythmLeft | | EXTERNAL | | | | axis deviationIncomplete | | LAB | | | | right bundle branch | | | | | | blockNonspecific ST | | | | | | and/or T wave | | | | | | abnormalitiesAbnormal | | | | | | ECGWhen compared with | | | | | | ECG of 08-SEP-2011 | | | | | | 18:43,No significant | | | | | | change was | | | | | | foundConfirmed by SANTIAGO, | | | | | | MAYA ([id number]) on | | | | | | 04/24/2014 4:39:29 PM | | | | + + + + + + + + | Specimen | + + | | + + + + + | Narrative | Performed At | + + + | Historically converted procedure from [facility] Epic environment | EXTERNAL LAB | + + + + +---------+ + + | Performing | Address | City/State/Zipcode | Phone Number | | Organization | | | | + +---------+ + + | EXTERNAL LAB | | | | + +---------+ + + Activated clotting time (04/24/2014 1:11 PM PST) + + + + + + | Component | Value | Ref Range | Performed | Pathologist | | | | | At | Signature | + + + + + + | Activated | 215 (H)Comment: Testing | 74 - 137 | EXTERNAL | | | Clotting | performed at [facility];[address] | seconds | LAB | | | time, POC | [address];[place] | | | | | | [address] | | | | + + + + + + + + | Specimen | + + | | + + + +---------+ + + | Performing | Address | City/State/Zipcode | Phone Number | | Organization | | | | + +---------+ + + | EXTERNAL LAB | | | | + +---------+ + + Activated clotting time (04/24/2014 1:02 PM PST) + + + + + + | Component | Value | Ref Range | Performed | Pathologist | | | | | At | Signature | + + + + + + | Activated | 216 (H)Comment: Testing | 74 - 137 | EXTERNAL | | | Clotting | performed at [facility];[address] | seconds | LAB | | | time, POC | [address];[place] | | | | | | [address] | | | | + + + + + + + + | Specimen | + + | | + + + +---------+ + + | Performing | Address | City/State/Zipcode | Phone Number | | Organization | | | | + +---------+ + + | EXTERNAL LAB | | | | + +---------+ + + External Lab: CBC (04/24/2014 11:34 AM PST) + + + + + + | Component | Value | Ref Range | Performed | Pathologist | | | | | At | Signature | + + + + + + | WBC | 13.1 (H)Comment: Testing | 3.8 - 11.0 K/uL | EXTERNAL | | | | performed at [facility];[address] | | LAB | | | | [address];[place] | | | | | | [address] | | | | + + + + + + | Non- | 4.41Comment: Testing | 4.20 - 5.70 | EXTERNAL | | | Red Blood | performed at [facility];[address] | M/uL | LAB | | | Cells | [address];[place] | | | | | Counted | [address] | | | | + + + + + + | Hemoglobin | 12.9 (L)Comment: Testing | 13.2 - 17.0 | EXTERNAL | | | | performed at [facility];[address] | g/dL | LAB | | | | [address];[place] | | | | | | [address] | | | | + + + + + + | Hematocrit, | 38.4 (L)Comment: Testing | 39.0 - 50.0 % | EXTERNAL | | | POC | performed at [facility];[address] | | LAB | | | | [address];[place] | | | | | | [address] | | | | + + + + + + | MCV | 87.0Comment: Testing | 80.0 - 100.0 fl | EXTERNAL | | | | performed at [facility];[address] | | LAB | | | | [address];[place] | | | | | | [address] | | | | + + + + + + | MCH | 29.2Comment: Testing | 27.0 - 34.0 pg | EXTERNAL | | | | performed at [facility];[address] | | LAB | | | | [address];[place] | | | | | | [address] | | | | + + + + + + | MCHC | 33.6Comment: Testing | 32.0 - 35.5 | EXTERNAL | | | | performed at [facility];[address] | g/dL | LAB | | | | [address];[place] | | | | | | [address] | | | | + + + + + + | RDW-CV | 42.0Comment: Testing | 37 - 53 fl | EXTERNAL | | | | performed at [facility];[address] | | LAB | | | | [address];[place] | | | | | | [address] | | | | + + + + + + | Platelet | 276Comment: Testing | 150 - 400 K/uL | EXTERNAL | | | Count | performed at [facility];[address] | | LAB | | | Plasma | [address];[place] | | | | | | [address] | | | | + + + + + + | MPV | 9.6Comment: Testing | fl | EXTERNAL | | | | performed at [facility];[address] | | LAB | | | | [address];[place] | | | | | | [address] | | | | + + + + + + | Differentia | AUTOMATEDComment: | | EXTERNAL | | | l Type | Testing performed at | | LAB | | | | [facility];[address];[place] [address] | | | | + + + + + + | % Segmented | 71.7Comment: Testing | % | EXTERNAL | | | | performed at [facility];[address] | | LAB | | | Neutrophils | [address];[place] | | | | | | [address] | | | | + + + + + + | % | 15.2Comment: Testing | % | EXTERNAL | | | Lymphocytes | performed at [facility];[address] | | LAB | | | | [address];[place] | | | | | | [address] | | | | + + + + + + | % Monocytes | 10.9Comment: Testing | % | EXTERNAL | | | | performed at [facility];[address] | | LAB | | | | [address];[place] | | | | | | [address] | | | | + + + + + + | % | 1.3Comment: Testing | % | EXTERNAL | | | Eosinophils | performed at [facility];[address] | | LAB | | | | [address];[place] | | | | | | [address] | | | | + + + + + + | % Basophils | 0.9Comment: Testing | % | EXTERNAL | | | | performed at [facility];[address] | | LAB | | | | [address];[place] | | | | | | [address] | | | | + + + + + + | Absolute | 9.4 (H)Comment: Testing | 1.9 - 7.4 K/uL | EXTERNAL | | | Segmented | performed at [facility];[address] | | LAB | | | Neutrophils | [address];[place] | | | | | | [address] | | | | + + + + + + | Absolute | 2.0Comment: Testing | 1.0 - 3.9 K/uL | EXTERNAL | | | Lymphocytes | performed at [facility];[address] | | LAB | | | | [address];[place] | | | | | | [address] | | | | + + + + + + | Absolute | 1.4 (H)Comment: Testing | 0 - 0.8 K/uL | EXTERNAL | | | Monocytes | performed at [facility];[address] | | LAB | | | | [address];[place] | | | | | | [address] | | | | + + + + + + | Absolute | 0.2Comment: Testing | 0 - 0.5 K/uL | EXTERNAL | | | Eosinophils | performed at [facility];[address] | | LAB | | | | [address];[place] | | | | | | [address] | | | | + + + + + + | Absolute | 0.1Comment: Testing | 0 - 0.1 K/uL | EXTERNAL | | | Basophils | performed at [facility];[address] | | LAB | | | | [address];[place], [place] | | | | | | [address] | | | | + + + + + + + + | Specimen | + + | Blood specimen | | (specimen) | + + + +---------+ + + | Performing | Address | City/State/Zipcode | Phone Number | | Organization | | | | + +---------+ + + | EXTERNAL LAB | | | | + +---------+ + + Basic Metabolic Panel (04/24/2014 11:34 AM PST) + + + + + + | Component | Value | Ref Range | Performed | Pathologist | | | | | At | Signature | + + + + + + | Na | 138Comment: Testing | 135 - 143 | EXTERNAL | | | | performed at [facility];888 | mmol/L | LAB | | | | [address];[place] | | | | | | [address] | | | | + + + + + + | K | 4.1Comment: Testing | 3.5 - 4.9 | EXTERNAL | | | | performed at [facility];888 | mmol/L | LAB | | | | [address];[place] | | | | | | [address] | | | | + + + + + + | Cl | 106Comment: Testing | 99 - 109 mmol/L | EXTERNAL | | | | performed at [facility];[address] | | LAB | | | | [address];[place] | | | | | | [address] | | | | + + + + + + | CO2 | 22 (L)Comment: Testing | 23 - 32 mmol/L | EXTERNAL | | | | performed at [facility];[address] | | LAB | | | | [address];[place] | | | | | | [address] | | | | + + + + + + | Anion Gap | 14Comment: Testing | 5 - 20 mmol/L | EXTERNAL | | | | performed at [facility];[address] | | LAB | | | | [address];[place] | | | | | | [address] | | | | + + + + + + | Glucose, | 113 (H)Comment: Testing | 65 - 99 mg/dL | EXTERNAL | | | Fasting | performed at [facility];[address] | | LAB | | | | [address];[place] | | | | | | [address] | | | | + + + + + + | BUN | 21Comment: Testing | 8 - 25 mg/dL | EXTERNAL | | | | performed at [facility];[address] | | LAB | | | | [address];[place] | | | | | | [address] | | | | + + + + + + | Creatinine | 1.42 (H)Comment: Testing | 0.70 - 1.30 | EXTERNAL | | | | performed at [facility];888 | mg/dL | LAB | | | | [address];[place] | | | | | | [address] | | | | + + + + + + | BUN/Creatin | 15Comment: Testing | | EXTERNAL | | | ine Ratio | performed at [facility];[address] | | LAB | | | | [address];[place] | | | | | | [address] | | | | + + + + + + | Calcium | 9.8Comment: Testing | 8.5 - 10.2 | EXTERNAL | | | | performed at [facility];888 | mg/dL | LAB | | | | [address];[place], [place] | | | | | | [address] | | | | + + + + + + | Estimated | 55 (L)Comment: GFR <60: | mL/min/1.73m2 | EXTERNAL | | | GFR | CHRONIC KIDNEY DISEASE, | | LAB | | | | IF FOUND OVER A 3 MONTH | | | | | | PERIOD.GFR <15: KIDNEY | | | | | | FAILURE.FOR | | | | | | AMERICANS, MULTIPLY THE | | | | | | CALCULATED GFR BY | | | | | | 1.210.Testing performed | | | | | | at [facility];[address] | | [address];[place] [address] | | | | + + + + + + + + | Specimen | + + | Blood specimen | | (specimen) | + + + +---------+ + + | Performing | Address | City/State/Zipcode | Phone Number | | Organization | | | | + +---------+ + + | EXTERNAL LAB | | | | + +---------+ + + documented in this encounter Visit Diagnoses Not on filedocumented in this encounter
--- OUTSIDE RECORDS SUMMARY | ~2019-11-21 | XMS | Clinical Summary ---
Demographics + + + | Address | [address] | | | [place] [address] | + + + | Home Phone | | + + + | Preferred Language | Unknown | + + + | Marital Status | | + + + | Denominational Affiliation | CHR | + + + | Race | White | + + + | Ethnic Group | Not or | + + + Author + + + | Author | [facility] | + + + | Organization | [facility] | + + + | Address | Unknown | + + + | Phone | Unavailable | + + + Support + + + + + | Name | Relationship | Address | Phone | + + + + + | Rabia Aguilar | JAMAR | [address] | | | | | [place] | | | | | [address] | | + + + + + Care Team Providers + +------+ + | Care Drop Wire Aligner Name | Role | Phone | + +------+ + | Uday Parra MD | PCP | | + +------+ + Source Comments RENETTA is fully live on both [facility] and [facility] Allergies No Known Allergies Medications + + [...] | | | | | | | [address] | | + +--------+ +--------+ + +------+ [...] | | 1961 | [phone] | [place] [address] | | | jordan | | | [...]
--- OUTSIDE RECORDS SUMMARY | ~2019-11-21 | XMS | Encounter Summary ---
Demographics + + + | Address | [address] | | | [place] [address] | + + + | Home Phone | | + + + | Preferred Language | Unknown | + + + | Marital Status | | + + + | Buddhist Affiliation | CHR | + + + | Race | White | + + + | Ethnic Group | Not or | + + + Author + + + | Author | [facility] | + + + | Organization | [facility] | + + + | Address | Unknown | + + + | Phone | Unavailable | + + + Support + + + + + | Name | Relationship | Address | Phone | + + + + + | Rabia Aguilar | ECON | [address] | | | | | [place] | | | | | [address] | | + + + + + Care Team Providers + +------+ + | Care Telegraphic Service Dispatcher Name | Role | Phone | + +------+ + | Uday Parra MD | PCP | | + +------+ + Encounter Details +--------+ + + + + | Date | Type | Department | Care Team | Description | +--------+ + + + + | 11/05/ | Document-Sc | Health Information | Other, Faculty | | | 2015 | anned | Services [address] | [phone] | | | | | [address] | | | | | | Mailcode: OP17A | | | | | | [facility] | | | | | | [place], [place] | | | | | | [address] | | | | | | [phone] | | | +--------+ + + + [...] + + | LAB REPORTS | | 11/05/2014 | | Results for this | | | | 12:00 AM | | procedure are in the | | | | PDT | | results section. | + +--------+ + + + documented in this encounter Results LAB REPORTS (11/05/2014 12:00 AM PDT) + + + | Narrative | Performed At | + + + | | | + + + documented in this encounter Visit Diagnoses Not on filedocumented in this encounter"
--- OUTSIDE RECORDS SUMMARY | ~2019-11-21 | XMS | Encounter Summary ---
Demographics + + + | Address | [address] | | | [place] [address] | + + + | Home Phone | | + + + | Preferred Language | Unknown | + + + | Marital Status | | + + + | Adventist Affiliation | CHR | + + + | Race | White | + + + | Ethnic Group | Not or | + + + Author + + + | Author | [facility] | + + + | Organization | [facility] | + + + | Address | Unknown | + + + | Phone | Unavailable | + + + Support + + + + + | Name | Relationship | Address | Phone | + + + + + | Rabia Aguilar | ECON | [address] | | | | | [place] | | | | | [address] | | + + + + + Care Team Providers + +------+ + | Care Leadership Development Instructor Name | Role | Phone | + +------+ + | Uday Parra MD | PCP | | + +------+ + Encounter Details +--------+ + + + + | Date | Type | Department | Care Team | Description | +--------+ + + + + | 11/02/ | Document-Sc | Health Information | Other, Faculty | | | 2015 | anned | Services [address] | [phone] | | | | | [address] | | | | | | Mailcode: OP17A | | | | | | [facility] | | | | | | [place], [place] | | | | | | [address] | | | | | | [phone] | | | +--------+ + + + [...]
--- OUTSIDE RECORDS SUMMARY | ~2019-11-21 | XMS | Encounter Summary ---
Demographics + + + | Address | [address] | | | [place] [address] | + + + | Home Phone | | + + + | Preferred Language | Unknown | + + + | Marital Status | | + + + | Jain Affiliation | 1013 | + + + | Race | Unknown | + + + | Ethnic Group | Unknown | + + + Author + + + | Author | [facility] | | | and [place] | + + + | Organization | [facility] | | [...] Providers + +------+ + | Care Director Of Education Name | Role | Phone | + +------+ + | Uady Parra MD | PCP | | + +------+ + Encounter Details +--------+ + + + + | Date | Type | Department | Care Team | Description | +--------+ + + + + | 04/24/ | Orders Only | [facility] | Jhoan Corona MD | | | 2013 | | CARDIOLOGY [place]ALL[place]HER | [address] | | | | | [address] | [place] [address] | | | | | [place], [place] | [phone] | | | | | [address] | | | | | | [phone] | | | +--------+ + + + [...] test was found to be negative. A 6-Burkinan right radial artery | | | Glidesheath was then advanced. A cocktail of heparin, verapamil and | | | nitroglycerin was injected via the introducer. Using a Wholey wire, a | | | 6-Burkinan JL4 catheter was advanced to the ascending aorta and | | | engaged with the ostium of the left main. Projections of the left | | | coronary system were done with the use of contrast injections. Using | | | a long exchange wire, the JL4 catheter was exchanged to a 6-Burkinan | | | JR4 catheter which was engaged with the ostium of the right coronary | | | artery. Projections of the right coronary artery were done with the | | | use of contrast injections. The catheter was then exchanged over a | | | long exchange wire to a 6-Burkinan pigtail catheter which was advanced | | [...] territory. The first one is in the dyezhuoj-il-dbs circumflex and the | | | second [...] test was found to be negative. A 6-Burkinan right radial artery Glidesheath | | was then advanced. A cocktail of heparin, verapamil and nitroglycerin was | | injected via the introducer. Using a Wholey wire, a 6-Burkinan JL4 catheter | | was advanced to the ascending aorta and engaged with the ostium of the | | left main. Projections of the left coronary system were done with the use | | of contrast injections. Using a long exchange wire, the JL4 catheter was | | exchanged to a 6-Burkinan JR4 catheter which was engaged with the ostium of | | the right coronary artery. Projections of the right coronary artery were | | done with the use of contrast injections. The catheter was then exchanged | | over a long exchange wire to a 6-Burkinan pigtail catheter which was | | advanced [...] first one | | is in the ladnpnff-mx-uix circumflex and the second one which appears [...]
--- OUTSIDE RECORDS SUMMARY | ~2019-11-21 | XMS | Encounter Summary ---
Demographics + + + | Address | [address] | | | [place] [address] | + + + | Home Phone | | + + + | Preferred Language | Unknown | + + + | Marital Status | | + + + | Gnosticism Affiliation | CHR | + + + | Race | White | + + + | Ethnic Group | Not or | + + + Author + + + | Author | [facility] | + + + | Organization | [facility] | + + + | Address | Unknown | + + + | Phone | Unavailable | + + + Support + + + + + | Name | Relationship | Address | Phone | + + + + + | Rabia Aguilar | ECON | [address] | | | | | [place] | | | | | [address] | | + + + + + Care Team Providers + +------+ + | Care Living Skills Advisor Name | Role | Phone | + +------+ + | Uday Parra MD | PCP | | + +------+ + Encounter Details +--------+ + + + + | Date | Type | Department | Care Team | Description | +--------+ + + + + | 11/05/ | Document-Sc | Health Information | Other, Faculty | | | 2015 | anned | Services [address] | [phone] | | | | | [address] | | | | | | Mailcode: OP17A | | | | | | [facility] | | | | | | [place], [place] | | | | | | [address] | | | | | | [phone] | | | +--------+ + + + [...]
--- OUTSIDE RECORDS SUMMARY | ~2019-11-21 | XMS | Encounter Summary ---
Demographics + + + | Address | [address] | | | [place] [address] | + + + | Home Phone | | + + + | Preferred Language | Unknown | + + + | Marital Status | | + + + | Gnosticist Affiliation | 1013 | + + + | Race | Unknown | + + + | Ethnic Group | Unknown | + + + Author + + + | Author | [facility] | | | and [place] | + + + | Organization | [facility] | | | and [...] Team Providers + +------+ + | Care Manager Of Internal Name | Role | Phone | + +------+ + PCP | Unavailable | + +------+ + Encounter Details +--------+ + + + + | Date | Type | Department | Care Team | Description | +--------+ + + + + | 03/03/ | Emergency | [facility] | Jose Francisco Huber, | Sciatica; | | 2010 | | MEDICAL CENTER | [facility] [address] | Lumbar strain | | | | EMERGENCY CENTER | [place], [place] | | | | | [address] [facility] | [address] | | | | | [place], [place] | | | | | | [address] | | | | | | [phone] | | | +--------+ + + + [...] + | Diagnosis | + + | Sciatica | + + | Lumbar strain Sprain of lumbar region | + + documented in this encounter"
--- OUTSIDE RECORDS SUMMARY | ~2019-11-21 | XMS | Encounter Summary ---
Demographics + + + | Address | [address] | | | [place] [address] | + + + | Home Phone [...] [place] | | | | | [address] | | + + + + + Care Team Providers + +------+ + | Care [facility] Name | Role | Phone | + +------+ + | Uday Parra MD | PCP | | + +------+ + Encounter Details +--------+ + + + + | Date | Type | Department | Care Team | Description | +--------+ + + + + | 11/06/ | Document-Sc | Health Information | Other, Faculty | | | 2015 | anned | Services [address] | [phone] | | | | | [address] | | | | | | Mailcode: OP17A | | | | | | [facility] | | | | | | [place], [place] | | | | | | [address] | | | | | | [phone] | | | +--------+ + + + [...]
--- OUTSIDE RECORDS SUMMARY | ~2019-11-21 | XMS | Encounter Summary ---
Demographics + + + | Address | [address] | | | [place] [address] | + + + | Home Phone | | + + + | Preferred Language | Unknown | + + + | Marital Status | | + + + | Sikh Affiliation | CHR | + + + | Race | White | + + + | Ethnic Group | Not or | + + + Author + + + | Author | [facility] | + + + | Organization | [facility] | + + + | Address | Unknown | + + + | Phone | Unavailable | + + + Support + + + + + | Name | Relationship | Address | Phone | + + + + + | Rabia Aguilar | ECON | [address] | | | | | [place] | | | | | [address] | | + + + + + Care Team Providers + +------+ + | Care Metal Stud Framer Name | Role | Phone | + [...] [place] | | | | | | [address] | | | +--------+ + + + [...]
--- OUTSIDE RECORDS SUMMARY | ~2019-11-21 | XMS | Encounter Summary ---
Demographics + + + | Address | [address] | | | [place] [address] | + + + | Home Phone | | + + + | Preferred Language | Unknown | + + + | Marital Status | | + + + | Yazidism Affiliation | CHR | + + + | Race | White | + + + | Ethnic Group | Not or | + + + Author + + + | Author | [facility] | + + + | Organization | [facility] | + + + | Address | Unknown | + + + | Phone | Unavailable | + + + Support + + + + + | Name | Relationship | Address | Phone | + + + + + | Rabia Aguilar | ECON | [address] | | | | | [place] | | | | | [address] | | + + + + + Care Team Providers + +------+ + | Care Knowledge Management Consultant Name | Role | Phone | + [...] [place] | | | | | | [address] | | | +--------+ + + + [...]
--- OUTSIDE RECORDS SUMMARY | ~2019-11-21 | XMS | Encounter Summary ---
Demographics + + + | Address | [address] | | | [place] [address] | + + + | Home Phone | | + + + | Preferred Language | Unknown | + + + | Marital Status | | + + + | Sabianist Affiliation | CHR | + + + | Race | White | + + + | Ethnic Group | Not or | + + + Author + + + | Author | [facility] | + + + | Organization | [facility] | + + + | Address | Unknown | + + + | Phone | Unavailable | + + + Support + + + + + | Name | Relationship | Address | Phone | + + + + + | Rabia Aguilar | ECON | [address] | | | | | [place] | | | | | [address] | | + + + + + Care Team Providers + +------+ + | Care Hair Designer Name | Role | Phone | + [...] | subacute | FIDEL | [address] [facility] | | | | | bacterial | MEDICAL | [facility] | | | | | endocarditis | [address] [place], | | | | | [address] | [place] | | | | | | [place], | [address] | | | | | | [place] [address] | Phone: | | | | | | Phone: | [phone] | | | | | | [phone] | Fax: | | | | | | Fax: | [phone] | | | | | | [phone] | | +--------+--------+ + + + + [...] | | | [address] | (chronic kidney | | | | [address] [facility] | [place] [address] | disease) stage 3, | | | | Pavilion, 3rd floor | [phone] | GFR 30-59 ml/min | | | | [place], [place] | | (HCC) | | | | [address] | | | | | | [phone] | | | +--------+---------+ + + + [...] that time. He was admitted to a [facility] (11/02-) where he was diagnosed with ROCCO [...] month of December. During his admission at [facility] he had a CTA which was negative for PE but did show small left effusion. This effusion was too small for thoracentesis. Since discharge from [facility] he reports no fevers. 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 They have been >30 years. He generally is picking up and droppi ng loads in [facility] and [place] and travels within [place], [place] and [place]. He has not been to . Tobacco: [...] with TB. No incarceration ([facility]). No homeless ness or exposure [...] Cr=1.38 otherwise CMP WNL HCT=35, Hgb=12, WBC=9.5, xis=472 N58%, noted eos=6.6% UA unremarkable, no proteinuria [...] a t his last admission, 12/31-01/02 at [facility], to have a small pleural effusion which [...] now known to be cocci in [place] and he does have a cat which [...] tested. Cornelia mendoza should re-establish with a community engagement specialist. His mild eosinophilia could represent a [...] HepAAb -IgA, IgE, IgM -follow up in [place] [address] 01/03 -would re-establish with a posting clerk, as I suspect a chronic underlying pulm [...] IGA, SERUM I spent 75 minutes with Goeffrey Aguilar of which 50% was [id number] discussion of diagnos is, treatment and risks. LEE ANN RINCON MD Infectious Diseases [facility] Pager: [phone] documented in this en counter Plan of Treatment Not on filedocumented as of this encounter Results IGA, SERUM (01/08/2015 12:00 PM PDT) + +-------+ + + + | Component | Value | Ref Range | Performed | Pathologist | | | | | At | Signature | + +-------+ + + + | IGA SERUM | 218 | 70 - 400 mg/dL | [facility] | | | | | | [facility] | | | | | [place] | | + +-------+ + + + + + | Specimen | + + | Blood - Blood | + + + + + + + | Performing | Address | City/State/Zipcode | Phone Number | | Organization | | | | + + + + + | [facility] | [address] | [place] [address] | | | [place] | | | [...] + | [facility] | [address] | [place] [address] | | | [place] | | | [...] | + + + + + | [facility] | [address] | [place] [address] | | | SERVICES, SPECIAL | PARK [...] weeks. Test performed by: | | | [facility] | | | Coccidioidomycosis [facility]ology [facility] | | | [facility] Nadiya Leary [place] | | | [phone] | | |[place] [address] | | |[phone] | | | | | | | | | | | | | | + + + + + + + + | Performing | Address | City/State/Zipcode | Phone Number | | Organization | | | | + + + + + | [facility] | | | | + [...] A: | | | | | | SecureAlert/CSPerformed | | | | | | by [address] | | | | | | [address], [facility],[place] | | | | | | [address] | | | | | | [phone].Dialective. | | | | | | HDmessaging, Reagan Briggs, | | | | | | Aryan LOPEZ. Director | | | | + + + + + + + + | Specimen | + + | Blood - Blood | + + + + + + + | Performing | Address | City/State/[facility] | Phone Number | | Organization | | | | + + + + + | [facility] | [address] | [place], [place] | | | [facility] | | [address] | | + + + + + [...] | + + + + + | [facility] | [address] | [place] [address] | | | [place] | | | [...] + | [facility] | [address] | [place] [address] | | | [facility] | | | | + + + [...] + | [facility] | [address] | [place] [address] | | | [place] | | | [...] + | [facility] | [address] | [place] [address] | | | [place] | | | | + + + [...] | | Sheet at: | | | http://www.cdc.gov/nchstp/tb/pubs/tbfactssheets/108905.htm | | | Test performed by: [facility] [id number] | | | [address] [place] [address] | | + + + + + [...] + | [facility] | [address] | [place] [address] | | | [place] | | | | + + + [...] + | [facility] | [address] | [place] [address] | | | SERVICES, SPECIAL | PARK [...]
--- OUTSIDE RECORDS SUMMARY | ~2019-11-21 | XMS | Encounter Summary ---
Demographics + + + | Address | [address] | | | [place] [address] | + + + | Home Phone [...] + + + | Author | [facility] | + + + | Organization | [facility] | + + + | Address | Unknown | + + + | Phone | Unavailable | + + + Support + + + + + | Name | Relationship | Address | Phone | + + + + + | Rabia gAuilar | ECON | [address] | | | | | [place] | | | | | [address] | | + + + + + Care Team Providers + +------+ + | Care Fruit Canner Name | Role | Phone | + [...] Closed | | Rheumatology | Diagnoses | Burgin, | Ross, | | | | | Vasculitis | Uday Rucker MD | Paul Locke MD | | | | | limited to | SAMUEL | [address] [facility] | | | | | the skin, | MEDICAL | [facility] | | | | | unspecified | [address] [place], | | | | | Procedures | [address] | [place] | | | | | [place] NEW | [place], | [address] | | | | | PATIENT | [place] [address] | | | | | | LEVEL [address] | Phone: | | | | | | | [phone] | | | | | | | Fax: | | | | | | | [phone] | | +--------+--------+ + + + + Encounter Details +--------+---------+ + + + | Date | Type | Department | Care Team | Description | +--------+---------+ + + + | 07/25/ | Office | Rheumatology at | Paul Hawkins, | Pleural effusion | | 2016 | Visit | Physicians Tee Nicholas MD | (Primary Dx) | | | | [address] | | | | | | [address] Physician's | | | | | | Tee, 4th Floor | | | | | | [place], [place] | | | | | | [address] | | | | | | [phone] | | | +--------+---------+ + + + [...] or concerns. Shira Tolliver MD RHEUMATOLOGY AT [address] Mailcode: Op09 [place] [address] documented in this encounter Progress [...] ANCA testing. PAUL HAWKINS MD RHEUMATOLOGY FACULTY [address] [place] [address] Mailcode: Op09 [place] [address] Marsha Steinberg, Shira Casillas - 07/25/2015 5:30 PM PDT RHEUMATOLOGY Vasculitis Clinic NEW VISIT PCP Uday Parra MD [facility] [address] [address] [place] [address] Allergy immunology: Dr. Braxton Cardiology: Dr. Wali [...] Coronary atherosclerosis of unspecified type of vessel, match-e-be-nash-she-wish band or graft Pneumonia History reviewed. No pertinent [...] recomm endations. Shira Tolliver MD RHEUMATOLOGY AT [address] Mailcode: Op09 [place] [id number] documented in this en counter Plan of [...] + | [facility] - | [address] | [place] [address] | | | [place] | | | [...] + | [facility] - | [address] | [place] [address] | | | [place] | | | [...] + | [facility] - | [address] | [place] [address] | | | [place] | | | | + + + [...] by | | | | | | Richard Pauer - [address] | | | | | | Kristina Garcia, [facility] [place] | | | | | | [address] | | | | | | [phone].[employer]. | | | | | | Reagan [...] [facility] | [address] | [place], [place] | | | UN[facility] - INTFC | | [address] | | + + + + + [...] by | | | | | | Richard Pauer - [address] | | | | | | Kristina Garcia, [facility] [place] | | | | | | [address] | | | | | | [phone].[employer]. | | | | | | Reagan [...] [facility] | [address] | [place], [place] | | | UN[facility] PTH - INTFC | | [address] | | + + + + + [...] + | [facility] - | [address] | [place] [address] | | | [place] | | | [...] | + + + + + | [facility] - | [address] | [place] [address] | | | [place] | | | | + + + + + documented in this encounter Visit Diagnoses + + | Diagnosis | + + | Pleural effusion - Primary Unspecified pleural effusion | + + documented in this encounter
--- OUTSIDE RECORDS SUMMARY | ~2019-11-21 | XMS | Encounter Summary ---
Demographics + + + | Address | [address] | | | [place] [address] | + + + | Home Phone | | + + + | Preferred Language | Unknown | + + + | Marital Status | | + + + | Alevism Affiliation | CHR | + + + [...] [place] | | | | | [address] | | + + + + + Care Team Providers + +------+ + | Care Mine Engineering Supervisor Name | Role | Phone | [...] | | | | | | Tee, [address] [place] [address] | | | | | | [place], [place] | | | | | | [address] | | | | | | [phone] | | | +--------+------+ + + + [...] | + + + + + | [facility] - | [address] | [place] [address] | | | [place] | | | [...] | + + + + + | [facility] - | [address] | [place] [address] | | | [place] | | | [...] + | [facility] - | [address] | [place] [address] | | | [place] | | | [...] by | | | | | | [employer],[address] | | | | | | Mandeep Vega [facility] [place] | | | | | | [address] | | | | | | [phone].[employer]. | | | | | | usha, [...] [facility] | [address] | [place], [place] | | | UN[facility] PTH - INTFC | | [address] | | + + + + + [...] by | | | | | | VMT[employer],[address] | | | | | | Leonelamparo Vega, [facility] [place] | | | | | | [address] | | | | | | [phone].[employer]. | | | | | | usha, [...] [facility] | [address] | [place], [place] | | | UN[facility] P[facility] - INTFC | | [address] | | + + + + + [...] + | [facility] - | [address] | [place] [address] | | | [place] | | | [...] + | [facility] - | [address] | [place] [address] | | | [place] | | | | + + + + + documented in this encounter Visit Diagnoses + + | Diagnosis | + + | Pleural effusion Unspecified pleural effusion | + + documented in this encounter"
--- OUTSIDE RECORDS SUMMARY | ~2019-11-21 | XMS | Encounter Summary ---
Demographics + + + | Address | [address] | | | [place] [address] | + + + | Home Phone | | + + + | Preferred Language | Unknown | + + + | Marital Status | | + + + | Yarsani Affiliation | CHR | + + + [...] [place] | | | | | [address] | | + + + + + Care Team Providers + +------+ + | Care Wedger Machine Name | Role | Phone | + +------+ + | Uday Parra MD | PCP | | + +------+ + Encounter Details +--------+ + + + + | Date | Type | Department | Care Team | Description | +--------+ + + + + | 06/10/ | Document-Sc | Health Information | Other, Faculty | | | 2016 | anned | Services [address] | [phone] | | | | | [address] | | | | | | Mailcode: [id number] | | | | | | [facility] | | | | | | [place], [place] | | | | | | [address] | | | | | | [phone] | | | +--------+ + + + [...]
--- OUTSIDE RECORDS SUMMARY | ~2019-11-21 | XMS | Encounter Summary ---
Demographics + + + | Address | [address] | | | [place] [address] | + + + | Home Phone | | + + + | Preferred Language | Unknown | + + + | Marital Status | | + + + | Hinduism Affiliation | CHR | + + + | Race | White | + + + | Ethnic Group | Not or | + + + Author + + + | Author | [facility] | + + + | Organization | [facility] | + + + | Address | Unknown | + + + | Phone | Unavailable | + + + Support + + + + + | Name | Relationship | Address | Phone | + + + + + | Rabia Aguilar | ECON | [address] | | | | | [place] | | | | | [address] | | + + + + + Care Team Providers + +------+ + | Care Microfiche Camera Operator Name | Role | Phone | [...] [place] | | | | | | [address] | | | +--------+ + + + [...]
--- OUTSIDE RECORDS SUMMARY | ~2019-11-21 | XMS | Encounter Summary ---
Demographics + + + | Address | [address] | | | [place] [address] | + + + | Home Phone | | + + + | Preferred Language | Unknown | + + + | Marital Status | | + + + | Buddhist Affiliation | 1013 | + + + | Race | Unknown | + + + | Ethnic Group | Unknown | + + + Author + + + | Author | [facility] | | | and [place] | + + + | Organization | [facility] | | | and [...] Team Providers + +------+ + | Care Supervisor Electron Tube Processing Name | Role | Phone | + +------+ + | Uday Parra MD | PCP | | + +------+ + Encounter Details +--------+ + + + + | Date | Type | Department | Care Team | Description | +--------+ + + + + | 04/12/ | Transcribed | [facility] | Wali Fang MD | Chest pain, | | 2017 | Orders | CARDIOLOGY [address] | unspecified type | | | | [place], | [place], [place] | (Primary Dx); | | | | [place] [address] | [address] | Coronary artery | | | | [phone] | | disease, angina | | | | | | presence | | | | | | unspecified, | | | | | | unspecified vessel | | | | | | or lesion type, | | | | | | unspecified whether | | | | | | iroquois or | | | | | | [...] on filedocumented as of this encounter Results Stress ECG (04/29/2017 11:16 AM PST) + + + | Narrative | Performed At | + + + | Verenice Zhang MD 04/29/2017 11:19 | [facility] | | TREADMILL STRESS TEST REPORT [...] for age. Signed by: Verenice Zhang MD [facility] | | | 04/29/2017, 11:17 | | + + + + +---------+ + + | Performing | Address | City/State/Zipcode | Phone Number | | Organization | | | | + +---------+ + + | [facility] | | | | + +---------+ + + documented in this encounter Visit Diagnoses + + | Diagnosis | + + | Chest pain, unspecified type - Primary | + + | Coronary artery disease, angina presence unspecified, unspecified vessel or lesion | | type, unspecified whether iroquois or transplanted heart | + + documented in this encounter"
--- OUTSIDE RECORDS SUMMARY | ~2019-11-21 | XMS | Encounter Summary ---
Demographics + + + | Address | [address] | | | [place] [address] | + + + | Home Phone | | + + + | Preferred Language | Unknown | + + + | Marital Status | | + + + | Temple Affiliation | 1013 | + + + | Race | Unknown | + + + | Ethnic Group | Unknown | + + + Author + + + | Author | [facility] | | | and [place] | + + + | Organization | [facility] | | | and [...] Providers + +------+ + | Care Director Corporate Sales Name | Role | Phone | + +------+ + PCP | Unavailable | + +------+ + Encounter Details +--------+ + + + + | Date | Type | Department | Care Team | Description | +--------+ + + + + | 09/07/ | Emergency | [facility] | Joshua Zarate, | Pedal edema; | | 2011 | | MEDICAL CENTER | MD Tanner Chong | Back pain; | | | | EMERGENCY CENTER | [place], [place] | Palpitations | | | | [address] | [address] | | | | | [place], [place] | [phone] | | | | | [address] | | | | | | [phone] | | | +--------+ + + + [...] + + documented as of this encounter ED Notes Conversion Transaction, Provider Unknown - 09/08/2011 7:23 PM PDTFormatting of this note m ight be different from the original. ED Notes by Patrick Denise RN at 09/08/111922 Author: Patrick Denise RN Service: (none) Author Type: Registered Nurse Filed: 09/08/111922 Date of Service: 09/08/111922 Status: Signed Pheresis Specialist: Patrick Denise RN (Registered Nurse) Noted left leg swelling. Patrick Denise RN 09/08/111922 onver litzy Transaction, Provider Unknown - 09/08/2011 7:15 PM PDT ED Notes by Patrick Denise RN at 09/08/111914 Author: Patrick Denise RN Service: (none) Author Type: Registered Nurse Filed: 09/08/111917 Date of Service: 09/08/111914 Status: Signed Pheresis Specialist: Patrick Denise RN (Registered Nurse) Pt returned from [place]. Patrick Denise RN 09/08/111917 day Perea ARNP - 09/08/2011 6:27 PM PDTFormatting of this note might be different from th e original. ED Provider Notes by DRISS Lake at 09/08/111826 Author: DRISS Lake Service: (none) Author Type: Advanced Registered Nurse Pr actitioner Filed: 09/09/11 0005 Date of Service: 09/08/111826 Status: Signed Pheresis Specialist: DRISS Lake (Advanced Registered Nurse Practitioner) Related Notes: Cosigned by Joshua Zarate MD (Physician) filed at 09/09/11 0055 Procedures [facility] Department of Emergency Medicine History of Present Illness Patient Identification Geoffrey Aguilar is a 51 y.o. male. Patient information was obtained from patient. History/Exam limitations: none. Patient presented to the Emergency Department by: Car Chief Complaint Chief Complaint Patient presents with Leg Pain Concerned for left leg swelling. The measured the left leg and states it is bigger th an the other. Called cardiology and they advised to come here vs waiting for an office appoi ntment.. Other complaints back pain in the past week resolved and he states his heart is flu ttering. Having fast and slow beats. His wonders if he could have Afib. He has been see n recently and is on antibiotics for pulmonary infection and reportedly has a 30% Pulmonary function on Adviar. 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 Past Medical History Diagnosis Date Hypertension Other chronic pain Hyperlipidemia Joint pain Unspecified visual disturbance COPD (chronic obstructive pulmonary disease) Coronary artery disease Past Surgical History Procedure Date Cardiac catheterization stent placement 2006 Colonoscopy Spine surgery Vascular surgery Prior to Admission medications Medication Sig Start Date End Date Taking? Authorizing Provider amlodipine (NORVASC) 10 MG tablet Take 10 mg by mouth daily. Historical Provider, aspirin 81 MG EC tablet Take 81 mg by mouth daily. Historical Provider, fenofibrate (TRICOR) 145 MG tablet Take 145 mg by mouth daily. Historical Provider, hydrALAZINE (APRESOLINE) 25 MG tablet Take 25 mg by mouth 3 (three) times daily. Haven mcelroy ProviderMD hydrochlorothiazide (HYDRODIURIL) 25 MG tablet Take 25 mg by mouth daily. Historical Claudia vera MD methocarbamol (ROBAXIN) 750 MG tablet Take 750 mg by mouth 4 (four) times daily. Histbubba mcelroy ProviderMD metoprolol (TOPROL-XL) 25 MG 24 hr tablet Take 25 mg by mouth daily. Historical Ann erMD oxycodone-acetaminophen (PERCOCET) 5-325 MG per tablet Take 1-2 tablets by mouth every 4 (f our) hours as needed. Historical Provider, rosuvastatin (CRESTOR) 10 MG tablet Take 10 mg by mouth daily. Historical Provider, valsartan (DIOVAN) 320 MG tablet Take 320 mg by mouth daily. Historical Provider, No Known Allergies History Social History Marital Status: Spouse Name: N/A Number of Children: N/A Years of Education: N/A Occupational History Not on file. Social History Main Topics Smoking status: Former Smoker -- 1.5 packs/day Smokeless tobacco: Former User Alcohol Use: Yes rarely Drug Use: No Sexually Active: Yes -- Female partner(s) Other Topics Concern Not on file Social History Narrative No narrative on file History reviewed. No pertinent family history. Review of Systems Constitutional: Negative for: fever, chills, fatigue, sweats or weight loss Eyes: Negative for: decreased vision or irritated eyes Nose: Negative for: nosebleed Throat: Negative for: mouth sores Cardiovascular/Respiratory: Negative for: chest pain, shortness of breath, cough Gastrointestinal: Negative for: abdominal pain, vomiting, diarrhea, black or bloody stools Genitourinary: Negative for: dysuria, hematuria, urinary problems Musculoskeletal: Positive for: leg swelling and back pain Skin: Negative for: laceration or lesion Neuro and psych: Negative for: fainting, head injury, seizure, trouble walking Endocrine/Heme/Lymph: Negative for: swollen lymph nodes, easy bruising Physical Exam BP 143/82 | Pulse 78 | Temp 98.7 F (37.1 C) | Resp 18 | Ht 1.93 m (6' 4") | Wt 130.636 kg (288 lb) | BMI 35.06 kg/m2 | SpO2 99% hypetensive Otherwise normal. Pulse Oximetry interpretation: Normal General: Alert, in no apparent distress Eyes: Normal inspection, pupils equal and round, non-icteric ENT: Ears normal Nose normal Pharynx normal Neck: Normal inspection Supple No lymphadenopathy No meningismus No bruits no JVD noted. Cardiovascular: Rate and rhythm normal with PVC No murmurs Respiratory: Breath sounds normal bilaterally no ronchi or wet sounds. Abdomen: Soft, non-tender, non-distended No guarding or rebound Genitourinary: Deferred Rectal exam: Deferred Back: Normal inspection Good rom able to stand on heels and toes . No limited rom. No vert ebral pain no CVA tenderness.Reflexes intact. Skin: Color normal Warm and dry No rash Extremity: Left calf swelling good pulse, color no bruising or redness. Neuro: No motor deficit No sensory deficit Normal gait Medical Decision Making and Emergency Department Course EKG Interpretation 1843 Rhythm: Sinus Ventricular Rate: 68 TN Interval: Normal ST Segments: Normal Significant Q-waves: None Blocks: None Happy: Lad Additional Comments: None ED Department Course Care initiated After introducing myself to the patient, I have performed a careful history and physical ex amination. I have formulated the differential diagnosis that needs to be addressed during t his Emergency Room visit, briefly discussed this differential with the patient, and then dis cussed with them the plan of care. I have also addressed the risks and benefits of all diag nostic and treatment modalities planned for this ED visit. Concerned for left leg swelling. The measured and It is bigger than the other. Dobson d cardiology and they advised to come here vs wait. Other complaints back pain and Heart is fluttering. He has been seen recently and is on antibiotics for pulmonary infection. Back exam is normal. Good rom no vertebral pain No pain with palpation. Able to stool and urinate. NO saddle anesthesia. no signs of congestive failure. EKG Ultrasound, D dimer and Cardiac panel. NO BNP. EKG is normal Ultrasound is normal Cardiac panel is normal . I am not suspicious of back pain. With a normal exam and denial of back pain Labs are normal Creatnine is mildly elevated, and mild anemia. D dimer is negative. Discussed the presentation with Dr Zarate who agrees with the course of care. Records Reviewed Nursing notes. Laboratory Evaluation Results Procedure Component Value Ref Range Flag Date/Time Cardiac Panel [[id number]] Abnormal Collection: 09/08/111928 Order Status: Completed Resulted: 09/08/111958 WBC 12.1 3.8 - 11.0 K/uL H RBC 4.36 4.20 - 5.70 M/uL HGB 12.9 13.2 - 17.0 g/dL L HCT 38.6 39.0 - 50.0 % L MCV 88.5 80.0 - 100.0 fl MCH 29.5 27.0 - 34.0 pg MCHC 33.3 32.0 - 35.5 g/dL RDW SD 42.0 37 - 53 fl PLT 278 150 - 400 K/uL MPV 8.9 fl DIFF TYPE AUTOMATED NEUTROPHILS 68.0 40 - 80 % LYMPHOCYTES 16.3 15 - 45 % MONOCYTES 11.0 0 - 12 % EOSINOPHILS 4.2 0 - 7 % BASOPHILS 0.5 0 - 2 % NEUTROPHILS ABS 8.3 2.0 - 7.3 K/uL H LYMPHOCYTES ABS 2.0 1.0 - 3.4 K/uL MONOCYTES ABS 1.3 0 - 0.8 K/uL H EOSINOPHILS ABS 0.5 0 - 0.5 K/uL BASOPHILS ABS 0.1 0 - 0.1 K/uL SODIUM 138 135 - 143 mmol/L POTASSIUM 3.9 3.5 - 4.9 mmol/L CHLORIDE 104 99 - 109 mmol/L CO2 24 23 - 32 mmol/L ANION GAP AGAP 14 5 - 20 mmol/L GLUCOSE 90 65 - 99 mg/dL BUN 21 8 - 25 mg/dL CREATININE 1.6 0.70 - 1.30 mg/dL H BUN/CREAT 14 CALCIUM 9.2 8.5 - 10.2 mg/dL TOTAL PROTEIN 6.9 6.3 - 8.2 g/dL Albumin 3.7 3.6 - 5.0 g/dL GLOBULIN 3.2 1.3 - 4.9 g/dL A/G 1.2 1.0 - 2.4 TBIL 0.3 0.1 - 1.5 mg/dL ALK PHOS 39 35 - 115 U/L AST 21 10 - 45 U/L ALT 23 10 - 65 U/L EGFR 49 >60 mL/min/1.73m2 L CPK 144 55 - 400 U/L INR 1.0 0.9 - 3.5 APTT 27 25 - 37 seconds MMB 1.1 0.5 - 3.6 ng/mL CK-MB Index 0.8 D -Dimer, Quantitative [[id number]] Collection: 09/08/111928 Order Status: Completed Resulted: 09/08/111949 Specimen Type: Blood D DIMER,QUANT <0.22 0.00 - 0.49 ug/mL FEU Radiology and EKG Evaluation Imaging Results US Lower Extremity- Venous Left (Final result) Result time:09/08/111907 Final result by Rad Results In Petey (09/08/11 ) Narrative: HISTORY: 51 -year-old male with swelling TECHNIQUE: Ultrasound of the left lower extremity deep venous systems. No prior similar st udy available for comparison. This is a true duplex examination with generation and interrogation of Doppler spectral dorothea lysis, color flow and investigation waveforms. Where investigated, these findings were unremarkable and supportive of the conclusions of t he attached report. FINDINGS: Normal compression, color flow, respiratory variation and mechanical augmentation at all in terrogated points demonstrated.. Duplex examination demonstrating normal color flow, Doppler spectral analysis as expected for the venous structures here. Incidental findings none IMPRESSION: No evidence of deep venous thrombosis Diagnoses Final diagnoses Pedal edema Back pain resolved Palpitations Disposition: ED Disposition Discharge Condition at discharge: Stable Follow-up Information Follow up With Details Comments Contact Info Junito Arreola MD in 1 week If symptoms worsen [address] [place] [address], [facility] [address] [facility] [address] Jhoan Maldonado MD As needed [address] [place] [address], [address] [place] [address] Per Pt None, NETWORK DEVELOPER Discharge Medications: New Prescriptions No new medications DRISS Lake 09/09/11 0005 Joshua Zarate MD 09/09/1154 [email or web address] MD - 09/08/2011 6:27 PM PDTFormatting of this note might be different from the sascha ginal. ED Provider Notes by Joshua Zarate MD at 09/08/111826 Author: Joshua Zarate MD Service: (none) Author Type: Physician Filed: 09/09/1154 Date of Service: 09/08/111826 Status: Signed Pheresis Specialist: Joshua Zarate MD (Physician) Related Notes: Related Note by DRISS Lake (Advanced Registered Nurse Practitio dinah) filed at 09/09/11 0005 I agree with the above rodriguez. Joshua Zarate MD 09/09/1154 documente d in this encounter Plan of Treatment Not on filedocumented as of this encounter Procedures + +--------+ + + + | Procedure Name | Priori | Date/Time | Associated Diagnosis | Comments | | | ty | | | | + +--------+ + + + | ART DPLX ARM UNILAT | Routin | 09/08/2011 | | Results for this | | RIGHT | e | 6:57 PM | | procedure are in the | | | | PDT | | results section. | + +--------+ + + + documented in this encounter Results VENOUS DPLX OR VEIN MAPPING UNI (09/08/2011 6:57 PM PDT) + + | Specimen | + + | | + + + + + | Narrative | Performed At | + + + | HISTORY: 51 -year-old male with swelling TECHNIQUE: Ultrasound | | | of the left lower extremity deep venous systems. No prior similar | | | study available for comparison. This is a true duplex | | | examination with generation and interrogation of Doppler spectral | | | analysis, color flow and investigation waveforms. Where | | | investigated, these findings were unremarkable and supportive of the | | | conclusions of the attached report. FINDINGS: Normal | | | compression, color flow, respiratory variation and mechanical | | | augmentation at all interrogated points demonstrated.. Duplex | | | examination demonstrating normal color flow, Doppler spectral analysis | | | as expected for the venous structures here. Incidental findings | | | none IMPRESSION: No evidence of deep venous thrombosis | | | | | + + + + + | Procedure Note | + + | Petey, Rad Conversion - 12/24/2018 1:10 AM PDT HISTORY: 51 -year-old male with | | swelling TECHNIQUE: Ultrasound of the left lower extremity deep venous systems. No prior | | similar study available for comparison. This is a true duplex examination with | | generation and interrogation of Doppler spectral analysis, color flow and investigation | | waveforms. Where investigated, these findings were unremarkable and supportive of the | | conclusions of the attached report. FINDINGS: Normal compression, color flow, | | respiratory variation and mechanical augmentation at all interrogated points | | demonstrated.. Duplex examination demonstrating normal color flow, Doppler spectral | | analysis as expected for the venous structures here. Incidental findings none | | IMPRESSION: No evidence of deep venous thrombosis | | | |Incidental findings none | | | |IMPRESSION: No evidence of deep venous thrombosis | | | | | + + documented in this encounter Visit Diagnoses + + | Diagnosis | + + | Pedal edema Edema | + + | Back pain Backache, unspecified | + + | Palpitations | + + documented in this encounter
--- OUTSIDE RECORDS SUMMARY | ~2019-11-21 | XMS | Encounter Summary ---
Demographics + + + | Address | [address] | | | [place] [address] | + + + | Home Phone | | + + + | Preferred Language | Unknown | + + + | Marital Status | | + + + | Hoahaoism Affiliation | CHR | + + + [...] [place] | | | | | [address] | | + + + + + Care Team Providers + +------+ + | Care Apron Cleaner Name | Role | Phone | + [...] | | | [phone] | [facility] | | | | | [address] [facility] | [place] [id number] | | | | | [place], [facility] floor | [phone] | | | | | [place], [place] | | | | | | [address] | | | | | | [phone] | | | +--------+ + + + [...]
[~2019-11-21 19:02] MED LIST: ALBUTEROL2.5 MG/3 M INH; AMLODIPINE BESY10 MG PO; AMOX TR-K CLV1 EAC1 PO; ASPIRIN EC81 MG PO; ATORVASTATIN CA10 MG PO; CLOPIDOGREL75 MG PO; COLACE100 MG PO; DULERA 200 MCG/13 GM INH; FENOFIBRATE48 MG PO; FLOMAX0.4 MG PO; HYDRALAZINE HC100 MG PO; HYDROCHLOROTHIA25 MG PO; LEVAQUIN500 MG PO; METOPROLOL SUCC50 MG PO; NITROSTAT0.4 MG SL; PROAIR HFA8.5 GM INH; SPIRONOLACTONE50 MG PO; TRAMADOL HCL50 MG PO; VALSARTAN320 MG PO
--- OUTSIDE RECORDS SUMMARY | 2019-11-21 19:04 | XMS ---
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 E.Antony VISIT COUNT (12 MO.) 1 ABHIJIT Hugo TOTAL 1 NOTE: Visits indicate total known visits. ED/UCC VISIT TRACKING (12 MO.) 11/21/2019 19:02 ABHIJIT Farris OR TYPE: Emergency COMPLAINT: - HEADACHE/SOB INPATIENT VISIT TRACKING (12 MO.) No inpatient visits to display in this time frame [id number]
== END 2019-11-21 21:25 | disposition home or self-care (01) ==
LOC: ED 19:02
DX: J98.9 Respiratory disorder, unspecified (principal); B97.89 Other viral agents as the cause of diseases classified elsewhere; I10 Essential (primary) hypertension; J44.9 Chronic obstructive pulmonary disease, unspecified; Z79.899 Other long term (current) drug therapy; Z79.82 Long term (current) use of aspirin
CPT/HCPCS: 71045; 80053; 83605; 85025; 96361; 96374; 99284-25; J2405; J7030